=== PATIENT | male | born 1955 | race Two or more races ===

== ENCOUNTER 2020-08-02 06:46 | Outpatient (REF) | payer OTHER, SELFPAY ==
[2020-08-02 07:42] LABS: MANUAL DIFF FLAG NO
[2020-08-02 07:57] LABS: Basophils Percent Auto 0.3 % (0-2); Eosinophils Absolute Auto 0.3 X10*3/uL (0.0-0.4); Eosinophils Percent Auto 3.1 % (0-4); Hematocrit 51.6 % (42-52); Hemoglobin 16.7 g/dl (14.0-18.0); Imm Gran Abs Auto 0.04 X10*3/uL (0.00-0.03); Imm Gran Pct Auto 0.5 % (0.0-0.4); Lymphocytes Percent Auto 22.6 % (20-40); Mean Corpuscular HGB Conc 32.4 g/dl (31.0-36.0); Mean Corpuscular Hemoglobin 28.8 pg (27.0-33.0); Mean Corpuscular Volume 89.1 fL (80-98); Mean Platelet Volume 10.5 fL (9.4-12.4); Monocytes Absolute Auto 0.7 X10*3/uL (0.1-1.2); Monocytes Percent Auto 8.4 % (2-11); Neutrophils Absolute Auto 5.6 X10*3/uL (2.0-8.3); Neutrophils Percent Auto 65.1 % (45-73); Platelet Count 276 X10*3/uL (160-400); Red Blood Count 5.79 X10*6/uL (4.60-5.80); Red Cell Distribution Width 12.3 % (11.0-16.0); White Blood Count 8.6 X10*3/uL (4.8-10.8)
[2020-08-02 08:51] LABS: Alanine Aminotransferase 27 U/L (0-40); Albumin Level 4.4 g/dL (3.5-5.0); Alkaline Phosphatase 75 U/L (39-117); Anion Gap 12 (12-20); Aspartate Amino Transferase 26 U/L (5-37); Bilirubin Total 0.3 mg/dL (0.0-1.0); Blood Urea Nitrogen 21 mg/dL (9-16); Calcium 10.1 mg/dL (8.4-10.2); Carbon Dioxide 31 mmol/L (22-29); Chloride 102 mmol/L (96-108); Cholesterol 168 mg/dL; Estimated Glomerular Filt Rate > 60; Glucose Fasting 94 mg/dL (60-99); HDL Cholesterol 54 mg/dL; LDL Cholesterol Calculated 99 mg/dl; Potassium 4.4 mmol/L (3.3-5.1); Sodium 141 mmol/L (135-145); Total Protein 7.3 g/dL (6.5-8.0); Triglycerides 79 mg/dL
== END 2020-08-02 06:47 | disposition home or self-care (01) ==
LOC: HO.LAB 06:46
PROVIDERS: PCP Internal Medicine; Visit Provider Internal Medicine
DX: Z00.00 Encounter for general adult medical examination without abnormal findings (principal); E11.9 Type 2 diabetes mellitus without complications
CPT/HCPCS: 36415; 80053; 80061; 85025

== ENCOUNTER 2020-09-29 09:08 | Outpatient (REF) | payer OTHER, SELFPAY ==
--- NOTE | ~2020-09-29 | XR_ITS ---
EXAMINATION: XR HIP, LEFT CLINICAL INFORMATION: Hip pain COMPARISON: None TECHNIQUE: AP and frog-lateral projections of the left hip. FINDINGS: There is normal bony mineralization. No fracture, dislocation, destructive process. There is no hip joint narrowing or erosive change or visible chondrocalcinosis. Soft tissue planes are unremarkable. The visualized left SI joint and the pubis are unremarkable. XR/XR hip LT 1V IMPRESSION: Unremarkable left hip.
--- NOTE | ~2020-09-29 | XR_ITS ---
EXAMINATION: XR SHOULDER, LEFT CLINICAL INFORMATION: Shoulder pain COMPARISON: None TECHNIQUE: Left shoulder is imaged in 4 views. FINDINGS: No fracture, dislocation, destructive process. Normal bony mineralization. The glenohumeral joint is normal. The acromioclavicular alignment is normal. There is borderline spurring superior lateral acromium likely at origin deltoid. There are no visible rotator cuff calcifications. XR/XR shoulder LT min 2V IMPRESSION: 1. Minor spurring superior lateral acromium likely at origin deltoid. 2. No visible rotator cuff calcifications.
== END 2020-09-29 09:09 | disposition home or self-care (01) ==
LOC: HO.XRAY 09:08
PROVIDERS: PCP Internal Medicine; Visit Provider Internal Medicine
DX: M25.512 Pain in left shoulder (principal); M25.552 Pain in left hip
CPT/HCPCS: 73030; 73501

== ENCOUNTER → 2021-08-20 15:23 | Outpatient (BNVA) | payer OTHER, SELFPAY | PROVIDERS: PCP Internal Medicine; Referring Provider Internal Medicine; Visit Provider Surgery | DX: K64.9 Unspecified hemorrhoids (principal) | CPT/HCPCS: 46600 ==

== ENCOUNTER 2021-11-20 09:53 | Outpatient (REF) | payer OTHER, SELFPAY ==
[2021-11-20 10:03] LABS: MANUAL DIFF FLAG NO
[2021-11-20 10:50] LABS: Basophils Percent Auto 0.4 % (0-2); Eosinophils Absolute Auto 0.2 X10*3/uL (0.0-0.4); Eosinophils Percent Auto 3.4 % (0-4); Hematocrit 50.1 % (42.0-52.0); Hemoglobin 16.6 g/dl (14.0-18.0); Imm Gran Abs Auto 0.03 X10*3/uL (0.00-0.03); Imm Gran Pct Auto 0.4 % (0.0-0.4); Lymphocytes Absolute Auto 2.4 X10*3/uL (1.2-4.9); Lymphocytes Percent Auto 36.5 % (20-40); Mean Corpuscular HGB Conc 33.1 g/dl (31.0-36.0); Mean Corpuscular Hemoglobin 29.9 pg (27.0-33.0); Mean Corpuscular Volume 90.3 fL (80.0-98.0); Mean Platelet Volume 10.3 fL (9.4-12.4); Monocytes Absolute Auto 0.6 X10*3/uL (0.1-1.2); Monocytes Percent Auto 9.6 % (2-11); Neutrophils Absolute Auto 3.3 x10*3/uL (2.0-8.3); Neutrophils Percent Auto 49.7 % (45-73); Platelet Count 283 X10*3/uL (160-400); Red Blood Count 5.55 X10*6/uL (4.60-5.80); Red Cell Distribution Width 12.6 % (11.0-16.0); White Blood Count 6.7 X10*3/uL (4.8-10.8)
[2021-11-20 11:23] LABS: Alanine Aminotransferase 22 U/L (0-40); Albumin Level 4.1 g/dL (3.5-5.0); Alkaline Phosphatase 63 U/L (39-117); Anion Gap 13 (12-20); Aspartate Amino Transferase 25 U/L (5-37); Bilirubin Total 0.6 mg/dL (0.0-1.0); Blood Urea Nitrogen 23 mg/dL (9-16); Calcium 9.6 mg/dL (8.4-10.2); Carbon Dioxide 30 mmol/L (22-29); Chloride 103 mmol/L (96-108); Cholesterol 152 mg/dL; Estimated Glomerular Filt Rate > 60; Glucose Fasting 108 mg/dL (60-99); HDL Cholesterol 39 mg/dL; LDL Cholesterol Calculated 75 mg/dl; Potassium 4.3 mmol/L (3.3-5.1); Sodium 142 mmol/L (135-145); Total Protein 6.9 g/dL (6.5-8.0); Triglycerides 193 mg/dL
[2021-11-20 11:50] LABS: Thyroid Stimulating Hormone 3.22 uIU/mL (0.32-4.0)
== END 2021-11-20 09:54 | disposition home or self-care (01) ==
LOC: HO.LAB 09:53
PROVIDERS: PCP Internal Medicine; Visit Provider Internal Medicine
DX: Z13.0 Encounter for screening for diseases of the blood and blood-forming organs and certain disorders involving the immune mechanism (principal); E78.5 Hyperlipidemia, unspecified; E03.9 Hypothyroidism, unspecified; I10 Essential (primary) hypertension
CPT/HCPCS: 36415; 80053; 80061; 84443; 85025

== ENCOUNTER 2022-11-11 08:58 | Outpatient (AMB) | payer OTHER, SELFPAY ==
[2022-11-11 09:00] VITALS: BP 144/99; PULSE 75; O2SAT 98; BMI 28.4
--- NOTE | 2022-11-11 09:00 | MHC.PC.OV ---
Vital Signs 11/11/22 09:00 Height 5 ft 6 in Weight 176 lb BMI 28.4 BP 144/99 H Blood Pressure Location Lt brachial Position Sitting Pulse 75 Pulse Source Pulse Oximeter Pulse Oximetry (%) 98 Oxygen Delivery Method Room Air Intake Visit Reasons: Annual Exam General Agent Required: No Residential Plumber: Not Required per policy Accompanied by: Self / Same As Patient Allergies No Known Allergies Allergy (Verified 11/11/22 09:01) Medication List - Last Reconciled 11/11/22 by Nadir Scherer MD sildenafil (Viagra) 50 mg PO DAILY PRN valsartan 160 mg PO DAILY Tobacco use date assessed: 07/26/21 Fall risk assessment: No Falls in past year Last assessed Fall Risk: 11/11/22 Dental Screening Dental Screen Date: 11/11/22 Did you have a dental visit in the last 12 months?: Yes Did you have a dental problem in the last 6 months where you did not have access to dental care?: No Was dental information given to patient?: Patient has dentist HPI Annual Exam HPI Details HTN and ED; BP has been up a bit [facility] Medical History Hypertension Surgical History No pertinent past surgical history Family History Mother No problems noted. Father No problems noted. Social History Housing: House Alcohol intake: current Alcohol intake frequency: holidays/special occasions only Patient Tobacco Use Status: Never used Tobacco e-Cigarette/Vaping Use: Never Used Second Hand Smoke Exposure: No service: No Current occupational status: unemployed Cognitive needs: No Hearing needs: No Vision needs: Yes (glasses) Questionnaire PHQ-9 Over the last 2 weeks, how often have you been bothered by any of the following problems? 1. Little interest or pleasure in doing things: not at all 2. Feeling down, depressed, or hopeless: not at all 3. Trouble falling or staying asleep, or sleeping too much: not at all 4. Feeling tired or having little energy: not at all 5. Poor appetite or overeating: not at all 6. Feeling bad about yourself - or that you are a failure or have let yourself or your family down: not at all 7. Trouble concentrating on things, such as reading the newspaper or watching television: not at all 8. Moving or speaking so slowly that other people could have noticed. Or the opposite - being so fidgety or restless that you have been moving around a lot more than usual: not at all 9. Thoughts that you would be better off or of hurting yourself in some way: not at all Total score: 0 Depression Screening Interpretation: Negative 66163 - PHQ-9 Billing: Yes Source: Developed by Drs. Bud Lee, Alba Jc, Yeyo Gonzalez and colleagues, with an educational luis miguel from [employer]. Thrive Questionnaire Date Thrive assessed: 11/11/22 I am a: Patient What is your living situation today?: I have a steady place to live Within the past 12 months, did the food you bought not last and you didn't have the money to get more?: Never true Within the past 12 months, did you worry whether your food would run out before you got money to buy more?: Never true Do you have trouble paying for medicines?: No Do you have trouble getting transportation to medical appointments?: No Do you have trouble paying your heating and electricity bill?: No Do you have trouble taking care of your child, family member or friend?: No Do you have trouble with day-to-day activities such as bathing, preparing meals, shopping, managing finances, etc.?: No Are you currently unemployed and looking for a job?: No Are you interested in more education?: No Please select the resources that you would like help with: None AUDIT C Alcohol Use Questionnaire (AUDIT-C) 1. How often do you have a drink containing alcohol?: Monthly or less 2. How many drinks containing alcohol do you have on a typical day when you are drinking?: 1 or 2 Total Score: 1 Score Reviewed/Action Taken: Yes URI-7 AMB Questionnaire URI-7 Date URI - 7 assessed: 07/26/21 Source: Developed by Drs. Bud Lee, Alba Jc, Yeyo Gonzalez and colleagues, with an educational luis miguel from [employer]. Review of Systems Const Denies chills, Denies fatigue, Denies headache(s) and Denies weight loss Eyes Denies change in vision, Denies diplopia and Denies eye pain ENT Denies vertigo, Denies dizziness, Denies headache(s) and Denies nasal discharge Card Denies chest pain, Denies rapid heart rate and Denies dyspnea on exertion Resp Denies chest congestion, Denies cough, Denies pain with cough and Denies dyspnea on exertion GI Denies abdominal pain, Denies hematochezia and Denies change in bowel habits Musc Denies myalgias, Denies arthralgias and Denies joint swelling Skin/Breast Denies lesions and Denies unusual bruising Neuro Denies vertigo, Denies dizziness, Denies headache(s) and Denies focal weakness Endo Denies fatigue Physical exam (Primary Care) Vital Signs: Last Vital Signs Pulse 75 11/11/22 09:00 BP 144/99 H 11/11/22 09:00 Pulse Ox 98 11/11/22 09:00 Oxygen Delivery Method Room Air 11/11/22 09:00 BMI result Body Mass Index 28.4 Tobacco/Smoking Status: Tobacco use Status Tobacco use date assessed 07/26/21 11/11/22 09:05 Patient Tobacco Use Status Never used Tobacco 11/11/22 09:05 e-Cigarette/Vaping Use Never Used 11/11/22 09:05 PHQ-9: PHQ-9 Score PHQ-9: Total score 0 11/11/22 09:05 Depression Screening Interpretation: Negative Thrive Assessment: Date of Thrive Assessment Date Thrive assessed 11/11/22 11/11/22 09:05 Const General: cooperative, healthy appearing and no acute distress Orientation/consciousness: oriented to person, oriented to place and oriented to time [facility] Head: Yes normal to inspection, Yes normocephalic and Yes atraumatic Mouth: Normal oral and palatal mucosa present and tongue normal Throat: Yes posterior oropharynx normal and Yes uvula midline Eyes General: appearance normal, both eyes and all related structures Neck Neck: Yes normal visual inspection, Yes full ROM and Yes no lymphadenopathy Thyroid: Thyroid normal Carotids: normal carotid upstroke Chest Chest palpation & inspection: normal inspection of the chest Resp Effort & Inspection: normal respiratory effort and able to speak in complete sentences Auscultation: clear to auscultation bilaterally Cardio Jugular venous distension: no JVD Palpation: normal PMI Rate: regular rate Rhythm: regular rhythm Heart sounds: S1 normal heart sound present and S2 normal heart sound present GI Inspection: Yes normal to inspection Palpation (GI): Soft to palpation and No hepatosplenomegaly present Auscultation: normal bowel sounds General: Yes no CVA tenderness Back/Spine/Pelvis Back: no CVA tenderness Skin General skin exam: no rashes or lesions noted Neuro General: oriented to person, oriented to place and oriented to time Extrem General: Yes normal to inspection and Yes full ROM Assessment and Plan Assessment & Plan (1) Physical exam: Code(s): Z00.00 - Encounter for general adult medical examination without abnormal findings Plan: do labs (2) Hypertension: Code(s): I10 - Essential (primary) hypertension Plan: f/u 2 weeks (3) Erectile dysfunction: Code(s): N52.9 - Male erectile dysfunction, unspecified Plan: stable; same rx Orders: Orders Thyroid Stimulating Hormone Today E03.9 - Hypothyroidism, unspecified Prostate Specific Antigen Scr Today Z00.00 - Encounter for general adult medical examination without abnormal findings Lipid Panel Today E78.5 - Hyperlipidemia, unspecified Complete Blood Count Auto Diff Today D64.9 - Anemia, unspecified Comprehensive [place]. Panel Fast Today N28.9 - Disorder of kidney and ureter, unspecified Coding Level of Care Code Est Pt Prev Care >65y(37756) Diagnoses Physical exam Z00.00 Hypertension I10 Erectile dysfunction N52.9
== END 2022-11-11 09:56 | disposition home or self-care (01) ==
PROVIDERS: PCP Internal Medicine; Visit Provider Internal Medicine
DX: Z00.00 Encounter for general adult medical examination without abnormal findings (principal); I10 Essential (primary) hypertension; N52.9 Male erectile dysfunction, unspecified
CPT/HCPCS: 99397

== ENCOUNTER 2022-11-12 15:37 | Outpatient (REF) | payer OTHER, SELFPAY ==
[2022-11-12 15:53] LABS: MANUAL DIFF FLAG NO
[2022-11-12 16:32] LABS: Basophils Absolute Auto 0.1 X10*3/uL (0.0-0.2); Basophils Percent Auto 0.9 % (0-2); Eosinophils Absolute Auto 0.4 X10*3/uL (0.0-0.4); Eosinophils Percent Auto 5.6 % (0-4); Hematocrit 52.3 % (42.0-52.0); Hemoglobin 16.9 g/dl (14.0-18.0); Imm Gran Abs Auto 0.02 X10*3/uL (0.00-0.03); Imm Gran Pct Auto 0.3 % (0.0-0.4); Lymphocytes Absolute Auto 2.3 X10*3/uL (1.2-4.9); Mean Corpuscular HGB Conc 32.3 g/dl (31.0-36.0); Mean Corpuscular Hemoglobin 29.4 pg (27.0-33.0); Mean Platelet Volume 10.7 fL (9.4-12.4); Monocytes Absolute Auto 0.8 X10*3/uL (0.1-1.2); Monocytes Percent Auto 11.7 % (2-11); Neutrophils Absolute Auto 3.1 x10*3/uL (2.0-8.3); Neutrophils Percent Auto 46.5 % (45-73); Platelet Count 254 X10*3/uL (160-400); Red Blood Count 5.75 X10*6/uL (4.60-5.80); Red Cell Distribution Width 12.8 % (11.0-16.0); White Blood Count 6.7 X10*3/uL (4.8-10.8)
[2022-11-12 17:16] LABS: Alanine Aminotransferase 38 U/L (0-40); Alkaline Phosphatase 55 U/L (39-117); Anion Gap 8 (12-20); Aspartate Amino Transferase 30 U/L (5-37); Bilirubin Total 0.5 mg/dL (0.0-1.0); Blood Urea Nitrogen 15 mg/dL (9-16); Calcium 9.2 mg/dL (8.4-10.2); Carbon Dioxide 30 mmol/L (22-29); Chloride 107 mmol/L (96-108); Cholesterol 164 mg/dL (<200); Estimated Glomerular Filt Rate > 60; Glucose Fasting 96 mg/dL (60-99); HDL Cholesterol 35 mg/dL (>40); LDL Cholesterol Calculated 104 mg/dL (<100); Potassium 3.7 mmol/L (3.3-5.1); Sodium 141 mmol/L (135-145); Total Protein 6.8 g/dL (6.5-8.0); Triglycerides 126 mg/dL (<150)
[2022-11-12 17:24] LABS: Prostate Specific Antigen Scr 1.12 ng/mL (<0.05-4.0); Thyroid Stimulating Hormone 3.38 uIU/mL (0.32-4.0)
== END 2022-11-12 15:38 | disposition home or self-care (01) ==
LOC: HO.LAB 15:37
PROVIDERS: PCP Internal Medicine; Visit Provider Internal Medicine
DX: Z00.00 Encounter for general adult medical examination without abnormal findings (principal); Z12.5 Encounter for screening for malignant neoplasm of prostate; E03.9 Hypothyroidism, unspecified; E78.5 Hyperlipidemia, unspecified; N28.9 Disorder of kidney and ureter, unspecified; D64.9 Anemia, unspecified
CPT/HCPCS: 36415; 80053; 80061; 84153; 84443; 85025

== ENCOUNTER 2022-11-21 11:04 | Outpatient (AMB) | payer OTHER, SELFPAY ==
--- NOTE | 2022-11-21 11:11 | A.OFFPC_ITS ---
Vital Signs 11/21/22 11:12 Height 5 ft 6 in Weight 173 lb BMI 27.9 BP 142/80 H Blood Pressure Location Lt brachial Position Sitting Pulse 82 Pulse Source Pulse Oximeter Pulse Oximetry (%) 98 Oxygen Delivery Method Room Air Intake Visit Reasons: 1 week Follow Up On Labs Epic Prelude Analyst: Not Required per policy Accompanied by: self Allergies No Known Allergies Allergy (Verified 11/21/22 11:12) Medication List - Last Reconciled 11/21/22 by Nadir Scherer MD sildenafil (Viagra) 50 mg PO DAILY PRN valsartan 160 mg PO DAILY Tobacco use date assessed: 11/21/22 Fall risk assessment: No Falls in past year Last assessed Fall Risk: 11/21/22 Dental Screening Dental Screen Date: 11/21/22 Did you have a dental visit in the last 12 months?: Yes Did you have a dental problem in the last 6 months where you did not have access to dental care?: No Was dental information given to patient?: Patient has dentist HPI 1 week Follow Up On Labs HPI Details HTN on Rx; doing well PFSH Medical History Hypertension Surgical History No pertinent past surgical history Family History Mother No problems noted. Father No problems noted. Social History Housing: House Alcohol intake: current Alcohol intake frequency: holidays/special occasions only Patient Tobacco Use Status: Never used Tobacco e-Cigarette/Vaping Use: Never Used Second Hand Smoke Exposure: No service: No Current occupational status: unemployed Cognitive needs: No Hearing needs: No Vision needs: Yes (glasses) Questionnaire PHQ-9 Over the last 2 weeks, how often have you been bothered by any of the following problems? 1. Little interest or pleasure in doing things: not at all 2. Feeling down, depressed, or hopeless: not at all 3. Trouble falling or staying asleep, or sleeping too much: not at all 4. Feeling tired or having little energy: not at all 5. Poor appetite or overeating: not at all 6. Feeling bad about yourself - or that you are a failure or have let yourself or your family down: not at all 7. Trouble concentrating on things, such as reading the newspaper or watching t elevision: not at all 8. Moving or speaking so slowly that other people could have noticed. Or the opposite - being so fidgety or restless that you have been moving around a lot more than usual: not at all 9. Thoughts that you would be better off or of hurting yourself in some way: not at all Total score: 0 Depression Screening Interpretation: Negative [id number] - PHQ-9 Billing: Yes Source: Developed by Drs. Bud Lee, Alba Jc, Yeyo Gonzalez and colleagues, with an educational luis miguel from [employer]. Thrive Questionnaire Date Thrive assessed: 11/11/22 AUDIT C Alcohol Use Questionnaire (AUDIT-C) 1. How often do you have a drink containing alcohol?: Monthly or less 2. How many drinks containing alcohol do you have on a typical day when you are drinking?: 1 or 2 Total Score: 1 Score Reviewed/Action Taken: Yes URI-7 AMB Questionnaire URI-7 Date URI - 7 assessed: 11/21/22 Feeling nervous, anxious, or on edge: 0 = Not at all Not being able to stop or control worryin = Not at all Worrying too much about different things: 0 = Not at all Trouble relaxin = Not at all Being so restless that it is hard to sit still: 0 = Not at all Becoming easily annoyed or irritable: 0 = Not at all Feeling afraid as if something awful might happen: 0 = Not at all Total URI-7 score (0-4 normal; 5-9 mild; 10-14 moderate; 15-21 severe): 0 Source: Developed by Drs. Bud Lee, Alba Jc, Yeyo Gonzalez and colleagues, with an educational luis miguel from [employer]. Review of Systems Const Denies chills, Denies headache(s) and Denies weight loss ENT Denies headache(s) Card Denies chest pain, Denies syncope, Denies irregular heart rhythm and Denies dyspnea Resp Denies chest congestion, Denies cough and Denies dyspnea GI Denies abdominal pain, Denies change in stool character, Denies nausea and Denies vomiting Musc Denies deformity and Denies joint swelling Neuro Denies syncope and Denies headache(s) Physical exam (Primary Care) Vital Signs: Last Vital Signs Pulse 82 11/21/22 11:12 BP 142/80 H 11/21/22 11:12 Pulse Ox 98 11/21/22 11:12 Oxygen Delivery Method Room Air 11/21/22 11:12 BMI result Body Mass Index 27.9 Tobacco/Smoking Status: Tobacco use Status Tobacco use date assessed 11/21/22 11/21/22 11:16 Patient Tobacco Use Status Never used Tobacco 11/21/22 11:16 e-Cigarette/Vaping Use Never Used 11/21/22 11:16 PHQ-9: PHQ-9 Score PHQ-9: Total score 0 11/21/22 11:16 Depression Screening Interpretation: Negative Thrive Assessment: Date of Thrive Assessment Date Thrive assessed 11/11/22 11/21/22 11:16 Const General: cooperative, comfortable, no acute distress and alert Neck Neck: Yes no lymphadenopathy Thyroid: Thyroid normal Resp Effort & Inspection: normal respiratory effort Auscultation: clear to auscultation bilaterally Percussion: percussion normal Cardio Jugular venous distension: no JVD Palpation: normal PMI Rate: regular rate Rhythm: regular rhythm Heart sounds: S1 normal heart sound present and S2 normal heart sound present GI Inspection: Yes normal to inspection Palpation (GI): No hepatosplenomegaly present Skin General skin exam: no rashes or lesions noted Extrem General: Yes no clubbing, cyanosis or edema Assessment and Plan Assessment & Plan (1) Hypertension: Code(s): I10 - Essential (primary) hypertension Plan: stable; same rx Medications: New blood pressure monitor As directed 1 ea 0RF Coding Level of Care Code Est Pt Level 3 (96656) Diagnoses Hypertension I10
[2022-11-21 11:12] VITALS: BP 142/80; PULSE 82; O2SAT 98; BMI 27.9
== END 2022-11-21 12:20 | disposition home or self-care (01) ==
PROVIDERS: PCP Internal Medicine; Visit Provider Internal Medicine
DX: I10 Essential (primary) hypertension (principal)
CPT/HCPCS: 99213

== ENCOUNTER 2023-07-15 16:57 | Outpatient (REF) | payer OTHER, SELFPAY ==
[2023-07-15 17:22] LABS: Hematocrit 50.9 % (42.0-52.0); Hemoglobin 16.6 g/dl (14.0-18.0); Mean Corpuscular HGB Conc 32.6 g/dl (31.0-36.0); Mean Corpuscular Hemoglobin 28.7 pg (27.0-33.0); Mean Corpuscular Volume 87.9 fL (80.0-98.0); Mean Platelet Volume 9.9 fL (9.4-12.4); Platelet Count 311 X10*3/uL (160-400); Red Blood Count 5.79 X10*6/uL (4.60-5.80)
[2023-07-15 18:47] LABS: Creatinine Urine 231.49 mg/dL
[2023-07-15 19:10] LABS: Prostate Specific Antigen Scr 1.08 ng/mL (<0.05-4.0)
[2023-07-16 02:06] LABS: CT PCR NOT DETECTED (Not Detect.); NG PCR NOT DETECTED (Not Detect.)
[2023-07-16 08:08] LABS: Syphilis Screen Reactive (Nonreactive)
[2023-07-16 08:14] LABS: HIV AB/AG Nonreactive (Nonreactive); HIV Num 1 0.04 S/CO (0.00-0.99)
[2023-07-21 09:15] LABS: RPR Quantitative Reactive 1:1 (Nonreactive); T.Pallidum Particle Agg Test Reactive (Nonreactive)
== END 2023-07-15 16:58 | disposition home or self-care (01) ==
LOC: HO.LAB 16:57
PROVIDERS: PCP Internal Medicine; Visit Provider Physician Assistant
DX: I10 Essential (primary) hypertension (principal); Z12.5 Encounter for screening for malignant neoplasm of prostate; Z11.3 Encounter for screening for infections with a predominantly sexual mode of transmission; Z20.2 Contact with and (suspected) exposure to infections with a predominantly sexual mode of transmission
CPT/HCPCS: 0353U; 82043; 82570; 84153; 85027; 86592; 86780; 87389

== ENCOUNTER 2023-07-24 12:59 | Outpatient (AMB) | payer OTHER, SELFPAY ==
[2023-07-24 13:01] VITALS: BP 148/82; PULSE 86; O2SAT 98; BMI 27.6
--- NOTE | 2023-07-24 13:01 | A.OFFPC_ITS ---
Vital Signs 07/24/23 13:01 Height 5 ft 6 in Weight 171 lb BMI 27.6 BP 148/82 H Blood Pressure Location Lt brachial Position Sitting Pulse 86 Pulse Source Pulse Oximeter Pulse Oximetry (%) 98 Oxygen Delivery Method Room Air Intake Visit Reasons: follow up on lab results [employer] Observer Helper Required: No Responder: Not Required per policy Accompanied by: Self / Same As Patient Allergies No Known Allergies Allergy (Verified 07/24/23 13:02) Medication List - Last Reconciled 07/25/23 by Nadir Scherer MD blood pressure monitor As directed doxycycline hyclate 100 mg PO BID penicillin G benzathine 2.4 mmu IM ONCE 1 dose sildenafil (Viagra) 50 mg PO DAILY PRN valsartan 160 mg PO DAILY Tobacco use date assessed: 07/24/23 Fall risk assessment: No Falls in past year Last assessed Fall Risk: 07/24/23 Dental Screening Dental Screen Date: 07/24/23 Did you have a dental visit in the last 12 months?: Yes Did you have a dental problem in the last 6 months where you did not have access to dental care?: No Was dental information given to patient?: Patient has dentist HPI follow up on lab results HPI Details told in the [place] he has syph. treated with Pen IM; no symptoms; treated a week ago; ON LICENSE OF [facility] Medical History Hypertension Surgical History No pertinent past surgical history Family History Mother No problems noted. Father No problems noted. Social History Housing: House Alcohol intake: current Alcohol intake frequency: holidays/special occasions only Patient Tobacco Use Status: Never used Tobacco e-Cigarette/Vaping Use: Never Used Second Hand Smoke Exposure: No service: No Current occupational status: unemployed Cognitive needs: No Hearing needs: No Vision needs: Yes (glasses) Questionnaire PHQ-9 Over the last 2 weeks, how often have you been bothered by any of the following problems? 1. Little interest or pleasure in doing things: not at all 2. Feeling down, depressed, or hopeless: not at all 3. Trouble falling or staying asleep, or sleeping too much: not at all 4. Feeling tired or having little energy: not at all 5. Poor appetite or overeating: not at all 6. Feeling bad about yourself - or that you are a failure or have let yourself o r your family down: not at all 7. Trouble concentrating on things, such as reading the newspaper or watching television: not at all 8. Moving or speaking so slowly that other people could have noticed. Or the opposite - being so fidgety or restless that you have been moving around a lot more than usual: not at all 9. Thoughts that you would be better off or of hurting yourself in some way: not at all Total score: 0 Depression Screening Interpretation: Negative Depression Screening Done: Yes 11355 - PHQ-9 Billing: Yes Source: Developed by Drs. Bud Lee, Alba Jc, Yeyo vaughan nd colleagues, with an educational luis miguel from [employer]. Thrive Questionnaire Date Thrive assessed: 07/24/23 I am a: Patient What is your living situation today?: I have a steady place to live Within the past 12 months, did the food you bought not last and you didn't have the money to get more?: Never true Within the past 12 months, did you worry whether your food would run out before you got money to buy more?: Never true Do you have trouble paying for medicines?: No Do you have trouble getting transportation to medical appointments?: No Do you have trouble paying your heating and electricity bill?: No Do you have trouble taking care of your child, family member or friend?: No Do you have trouble with day-to-day activities such as bathing, preparing meals, shopping, managing finances, etc.?: No Are you currently unemployed and looking for a job?: No Are you interested in more education?: No Please select the resources that you would like help with: None THRIVE Score: 0 AUDIT C Alcohol Use Questionnaire (AUDIT-C) 1. How often do you have a drink containing alcohol?: Monthly or less 2. How many drinks containing alcohol do you have on a typical day when you are drinking?: 1 or 2 Total Score: 1 Score Reviewed/Action Taken: Yes URI-7 AMB Questionnaire URI-7 Date URI - 7 assessed: 07/24/23 Feeling nervous, anxious, or on edge: 0 = Not at all Not being able to stop or control worryin = Not at all Worrying too much about different things: 0 = Not at all Trouble relaxin = Not at all Being so restless that it is hard to sit still: 0 = Not at all Becoming easily annoyed or irritable: 0 = Not at all Feeling afraid as if something awful might happen: 0 = Not at all Total URI-7 score (0-4 normal; 5-9 mild; 10-14 moderate; 15-21 severe): 0 Source: Developed by Drs. Bud Lee, Alba Jc, Yeyo Gonzalez and colleagues, with an educational luis miguel from [employer]. Review of Systems Const Denies chills, Denies headache(s) and Denies weight loss ENT Denies headache(s) Card Denies chest pain, Denies syncope, Denies irregular heart rhythm and Denies dyspnea Resp Denies chest congestion, Denies cough and Denies dyspnea GI Denies abdominal pain, Denies change in stool character, Denies nausea and Denies vomiting Musc Denies deformity and Denies joint swelling Neuro Denies syncope and Denies headache(s) Physical exam (Primary Care) Vital Signs: Last Vital Signs Pulse 86 07/24/23 13:01 BP 148/82 H 07/24/23 13:01 Pulse Ox 98 07/24/23 13:01 Oxygen Delivery Method Room Air 07/24/23 13:01 BMI result Body Mass Index 27.6 Tobacco/Smoking Status: Tobacco use Status Tobacco use date assessed 07/24/23 07/24/23 13:03 Patient Tobacco Use Status Never used Tobacco 07/24/23 13:03 e-Cigarette/Vaping Use Never Used 07/24/23 13:03 PHQ-9: PHQ-9 Score PHQ-9: Total score 0 07/24/23 13:03 Depression Screening Interpretation: Negative Thrive Assessment: Date of Thrive Assessment Date Thrive assessed 07/24/23 07/24/23 13:03 Const General: cooperative, comfortable, no acute distress and alert Neck Neck: Yes no lymphadenopathy Thyroid: Thyroid normal Resp Effort & Inspection: normal respiratory effort Auscultation: clear to auscultation bilaterally Percussion: percussion normal Cardio Jugular venous distension: no JVD Palpation: normal PMI Rate: regular rate Rhythm: regular rhythm Heart sounds: S1 normal heart sound present and S2 normal heart sound present GI Inspection: Yes normal to inspection Palpation (GI): No hepatosplenomegaly present Skin General skin exam: no rashes or lesions noted Extrem General: Yes no clubbing, cyanosis or edema Assessment and Plan Assessment & Plan (1) Syphilis: Code(s): A53.9 - Syphilis, unspecified Plan: will rx again with Pen and doxycycline Medications: New doxycycline hyclate 100 mg PO BID 20 tabs 0RF Coding Level of Care Code Est Pt Level 3 (59612) Diagnoses Syphilis A53.9
== END 2023-07-24 15:07 | disposition home or self-care (01) ==
PROVIDERS: PCP Internal Medicine; Visit Provider Internal Medicine
DX: A53.9 Syphilis, unspecified (principal)
CPT/HCPCS: 99213

== ENCOUNTER 2024-01-13 12:25 | Outpatient (AMB) | payer OTHER, SELFPAY ==
--- NOTE | 2024-01-13 12:27 | A.OFFPC_ITS ---
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 Last colonoscopy was over 10 years ago. Receive treatment for syphilis few months ago. Complains of low back pain that does not radiate to the legs. No fever, bowel or bladder incontinence. Declines physical therapy for now but is willing to do x-ray. Also has a right clavicular protuberance most likely due to a cyst and would like some imaging. Also has erectile dysfunction and sildenafil works for him. He is aware sildenafil can cause a fatal drug interaction with nitrates and if he has chest pain he has to go to EMT when was the last time that had sildenafil. [facility] Medical History (Updated 01/13/24 @ 12:54 by Cheli Joshua MD) Hypertension Surgical History No pertinent past surgical history Family History Mother No problems noted. Father No problems noted. Social History (Updated 01/13/24 @ 12:39 by Cheli Joshua MD) Housing: House Alcohol intake: current Alcohol intake frequency: a few times a month Alcohol type: hard liquor Patient Tobacco Use Status: Never used Tobacco e-Cigarette/Vaping Use: Never Used Second Hand Smoke Exposure: No service: No Current occupational status: unemployed Cognitive needs: No Hearing needs: No Vision needs: Yes (glasses) Questionnaire PHQ-9 Over the last 2 weeks, how often have you been bothered by any of the following problems? 1. Little interest or pleasure in doing things: not at all 2. Feeling down, depressed, or hopeless: not at all 3. Trouble falling or staying asleep, or sleeping too much: not at all 4. Feeling tired or having little energy: not at all 5. Poor appetite or overeating: not at all 6. Feeling bad about yourself - or that you are a failure or have let yourself or your family down: not at all 7. Trouble concentrating on things, such as reading the newspaper or watching television: not at all 8. Moving or speaking so slowly that other people could have noticed. Or the opposite - being so fidgety or restless that you have been moving around a lot more than usual: not at all 9. Thoughts that you would be better off or of hurting yourself in some way: not at all Total score: 0 Depression Screening Interpretation: Negative Depression Screening Done: Yes 09637 - PHQ-9 Billing: Yes Source: Developed by Drs. Bud Lee, Alba Jc, Yeyo Gonzalez and colleagues, with an educational luis miguel from [employer]. Thrive Questionnaire Date Thrive assessed: 07/24/23 I am a: Patient What is your living situation today?: I have a steady place to live Within the past 12 months, did the food you bought not last and you didn't have the money to get more?: I choose not to answer this question Within the past 12 months, did you worry whether your food would run out before you got money to buy more?: Never true Do you have trouble paying for medicines?: No Do you have trouble getting transportation to medical appointments?: No Do you have trouble paying your heating and electricity bill?: No Do you have trouble taking care of your child, family member or friend?: No Do you have trouble with day-to-day activities such as bathing, preparing meals, shopping, managing finances, etc.?: No Are you currently unemployed and looking for a job?: No Are you interested in more education?: No Please select the resources that you would like help with: None Currently or been in a relationship where the following occur: I choose not to answer THRIVE Score: 0 AUDIT C Alcohol Use Questionnaire (AUDIT-C) 1. How often do you have a drink containing alcohol?: 2-4 times a month 2. How many drinks containing alcohol do you have on a typical day when you are drinking?: 1 or 2 3. How often do you have six or more drinks on one occasion?: Less than monthly Total Score: 3 URI-7 AMB Questionnaire URI-7 Date URI - 7 assessed: 07/24/23 Feeling nervous, anxious, or on edge: 0 = Not at all Not being able to stop or control worryin = Not at all Worrying too much about different things: 0 = Not at all Trouble relaxin = Not at all Being so restless that it is hard to sit still: 0 = Not at all Becoming easily annoyed or irritable: 0 = Not at all Feeling afraid as if something awful might happen: 0 = Not at all Total URI-7 score (0-4 normal; 5-9 mild; 10-14 moderate; 15-21 severe): 0 Source: Developed by Drs. Bud Lee, Alba Jc, Yeyo Gonzalez and colleagues, with an educational luis miguel from [employer]. URI-7 Assessment Billing URI-7 Assessment Tool: URI-7 Assessment 30588 Review of Systems Const All systems reviewed & are unremarkable except as noted in HPI and below Card Denies chest pain at rest, Denies chest pain with activity, Denies edema, Denies irregular heart rhythm, Denies claudication, Denies dyspnea, Denies dyspnea on exertion, Denies orthopnea, Denies paroxysmal nocturnal dyspnea and Denies slow heart rate Resp Denies cough, Denies dyspnea and Denies dyspnea on exertion GI Denies abdominal pain, Denies change in bowel habits, Denies excessive flatus, Denies nausea and Denies vomiting Denies urinary hesitancy, Denies urinary incontinence and Denies urinary urgency Musc Reports back pain, Denies atrophy, Denies deformity and Denies limited range of motion Skin/Breast Denies bleeding lesions, Denies changing lesions and Denies rash Physical exam (Primary Care) Vital Signs: Last Vital Signs BP 152/110 H 01/13/24 12:28 BMI result Body Mass Index 27.3 Tobacco/Smoking Status: Tobacco use Status Tobacco use date assessed 07/24/23 07/24/23 13:03 Patient Tobacco Use Status Never used Tobacco 07/24/23 13:03 e-Cigarette/Vaping Use Never Used 07/24/23 13:03 Depression Screening Interpretation: Negative Thrive Assessment: Date of Thrive Assessment Date Thrive assessed 07/24/23 07/24/23 13:03 Currently or been in a relationship where the following occur: I choose not to answer HENMT Head: Yes normal to inspection, Yes normocephalic and Yes atraumatic Ears: external ears normal Eyes General: appearance normal, both eyes and all related structures Eyelids: Yes eyelids normal Conjunctivae: conjunctivae normal Neck Neck: Yes normal visual inspection and Yes supple Resp Effort & Inspection: normal respiratory effort Auscultation: clear to auscultation bilaterally Cardio Jugular venous distension: no JVD Rate: regular rate Rhythm: regular rhythm Heart sounds: S1 normal heart sound present and S2 normal heart sound present GI Inspection: Yes normal to inspection Palpation (GI): Soft to palpation and nontender Auscultation: normal bowel sounds Back/Spine/Pelvis Thoracic/Lumbar Spine: straight leg raise negative bilaterally Skin General skin exam: no rashes or lesions noted Neuro General: no focal motor deficits Extrem Other: Right clavicular protuberance. General: Yes full ROM Psych Appearance: grossly normal Office Procedures Flu Questionnaire Does the patient have a severe egg allergy?: No Immunizations Fluarix Triv [id number] (PF) 45 mcg (15 mcg x 3)/0.5 mL IM syringe Performing Provider: Cheli Joshua MD Per[facility] [place] [facility] Documented (not given) by: RAVIN Ochoa on 01/13/24 12:35 Reason Not Given: Received Previously Coding Level of Care Code Est Pt Level 3 (65009) Est Pt Prev Care >65y(06677) Diagnoses Physical exam Z00.00 Lumbar pain M54.50 Cyst of right clavicle M85.611 Erectile dysfunction, unspecified erectile dysfunction type N52.9 Erectile dysfunction type: unspecified Additional Codes PHQ-9 - 32942 - PHQ-9 Billing: Yes ([id number]) URI-7 Assessment Billing - URI-7 Assessment Tool: URI-7 Assessment 33360 ([id number]) Time Spent (min) 33 Assessment & Plan Assessment & Plan (1) Physical exam: Code(s): Z00.00 - Encounter for general adult medical examination without abnormal findings Category: Medical Plan: Repeat in a year. (2) Lumbar pain: Code(s): M54.50 - Low back pain, unspecified Category: Medical Plan: X-ray ordered. (3) Cyst of right clavicle: Code(s): M85.611 - Other cyst of bone, right shoulder Category: Medical Plan: Ultrasound ordered. (4) Erectile dysfunction: Code(s): N52.9 - Male erectile dysfunction, unspecified Category: Medical Qualifiers: Erectile dysfunction type: unspecified Qualified Code(s): N52.9 - Male erectile dysfunction, unspecified Plan: Continue sildenafil as needed. Orders: Orders XR lumbar spine 2-3V Today M54.50 - Low back pain, unspecified US extremity nonvascular Today M85.611 - Other cyst of bone, right shoulder Lipid Panel Today E78.5 - Hyperlipidemia, unspecified, I10 - Essential (primary) hypertension Influenza [id number] Immunization Today Z23 - Encounter for immunization Comprehensive [place]. Panel Fast Today I10 - Essential (primary) hypertension Referrals Open Access Screening Colonoscopy Referral Z12.12 - Encounter for screening for malignant neoplasm of rectum Medications: New sildenafil administer 30 minutes to 4 hours before activity 50 mg PO DAILY 30 days PRN 6 tabs 11RF sexual activity
[2024-01-13 12:28] VITALS: BP 152/110; BMI 27.3
== END 2024-01-13 12:56 | disposition home or self-care (01) ==
PROVIDERS: PCP Internal Medicine; Visit Provider Internal Medicine
DX: Z00.00 Encounter for general adult medical examination without abnormal findings (principal); M54.50 Low back pain, unspecified; M85.611 Other cyst of bone, right shoulder; N52.9 Male erectile dysfunction, unspecified

== ENCOUNTER 2024-01-13 12:25 | Outpatient (REF) | payer OTHER, SELFPAY ==
--- NOTE | ~2024-01-13 | XR_ITS ---
EXAMINATION: XR LUMBOSACRAL SPINE CLINICAL INFORMATION: M54.50 - Low back pain, unspecified COMPARISON: None available. TECHNIQUE: Three views of the lumbosacral spine. FINDINGS: No acute fracture, compression deformity, or suspicious bone lesion. Healed fracture of L3, probable burst fracture with 2 mm of retropulsion of the posterior endplate. This is a chronic appearance. There is a minimal levoconvex scoliosis, apex at L3. There is a normal to mildly straightened lordosis. There is a 3 mm degenerative appearing anterolisthesis of L5 on S1 with severe disc space degeneration and facet degeneration. Lesser degree of facet degeneration at L4-5. Moderate disc degeneration L2-3, L3-4, and L4-5. Mild sclerosis and irregularity of both SI joints, likely degenerative. No hip joint abnormality seen. Soft tissues appear normal. XR/XR lumbar spine 2-3V IMPRESSION: 1. Old healed burst fracture of L3. No acute findings lumbar spine. 2. Moderate lumbar spondylosis, most significant at L4-5 and L5-S1. Electronically signed by: Will Ramos MD 02/09/2024 11:44 AM [facility]
== END 2024-01-13 12:26 | disposition home or self-care (01) ==
LOC: HO.XRAY 12:25
PROVIDERS: PCP Internal Medicine; Visit Provider Internal Medicine
DX: Z00.01 Encounter for general adult medical examination with abnormal findings (principal); M54.50 Low back pain, unspecified; M85.611 Other cyst of bone, right shoulder; N52.9 Male erectile dysfunction, unspecified; Z79.899 Other long term (current) drug therapy
CPT/HCPCS: 72100; 96127

== ENCOUNTER → 2024-01-13 13:16 | Outpatient (BNV) | payer OTHER, SELFPAY | PROVIDERS: PCP Internal Medicine; Visit Provider Radiology Diagnostic Radiology | DX: M54.50 Low back pain, unspecified (principal) | CPT/HCPCS: 72100 ==

== ENCOUNTER 2024-01-19 06:23 | Outpatient (REF) | payer OTHER, SELFPAY ==
[2024-01-19 08:10] LABS: Alanine Aminotransferase 42 U/L (0-40); Albumin Level 4.4 g/dL (3.5-5.0); Alkaline Phosphatase 65 U/L (39-117); Anion Gap 11 (12-20); Aspartate Amino Transferase 35 U/L (5-37); Bilirubin Total 0.8 mg/dL (0.0-1.0); Blood Urea Nitrogen 20 mg/dL (9-16); Calcium 9.6 mg/dL (8.4-10.2); Carbon Dioxide 31 mmol/L (22-29); Chloride 104 mmol/L (96-108); Cholesterol 190 mg/dL (<200); Estimated Glomerular Filt Rate 56; Glucose Fasting 92 mg/dL (60-99); HDL Cholesterol 46 mg/dL (>40); LDL Cholesterol Calculated 129 mg/dL (<100); Potassium 4.8 mmol/L (3.3-5.1); Sodium 141 mmol/L (135-145); Total Protein 7.5 g/dL (6.5-8.0); Triglycerides 77 mg/dL (<150)
== END 2024-01-19 06:24 | disposition home or self-care (01) ==
LOC: HO.LAB 06:23
PROVIDERS: PCP Internal Medicine; Visit Provider Internal Medicine
DX: I10 Essential (primary) hypertension (principal); E78.5 Hyperlipidemia, unspecified
CPT/HCPCS: 36415; 80053; 80061

== ENCOUNTER 2024-01-23 15:52 | Outpatient (REF) | payer OTHER, SELFPAY ==
--- NOTE | ~2024-01-23 | US_ITS ---
EXAMINATION: US EXTREMITY, NONVASCULAR CLINICAL INFORMATION: Other cyst of bone, right shoulder. Palpable abnormality right shoulder subcutaneous region. COMPARISON: None available. TECHNIQUE: Grayscale and color Doppler ultrasound imaging of the right shoulder was performed in the area of clinical concern. FINDINGS: In the immediate subcutaneous fat, there is a benign-appearing encapsulated lipoma without solid soft tissue elements present, measuring 4.8 x 1.7 x 7.7 cm in the right anterior shoulder, supraclavicular region, in the region of palpable concern. This has good through transmission, no internal color Doppler flow, and is circumscribed. No suspicious findings. US/US extremity nonvascular IMPRESSION: 1. Findings consistent with subcutaneous benign lipoma measuring up to 7.7 cm in the right anterior shoulder, supraclavicular region, in the region of concern. Electronically signed by: Will Ramos MD 02/10/2024 12:49 PM [facility]
== END 2024-01-23 15:53 | disposition home or self-care (01) ==
LOC: HO.US 15:52
PROVIDERS: PCP Internal Medicine; Visit Provider Internal Medicine
DX: M85.611 Other cyst of bone, right shoulder (principal)
CPT/HCPCS: 76882

== ENCOUNTER 2024-05-13 14:42 | Outpatient (AMB) | payer OTHER, SELFPAY ==
--- NOTE | 2024-05-13 14:48 | MHC.PC.OV ---
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 Accompanied by: Self / Same As Patient Allergies No Known Allergies Allergy (Verified 05/13/24 15:04) Medication List - Last Reconciled 05/13/24 by Cheli Joshau MD blood pressure monitor As directed sildenafil 50 mg PO DAILY PRN 30 days valsartan 160 mg PO DAILY Tobacco use date assessed: 05/13/24 Fall risk assessment: No Falls in past year Last assessed Fall Risk: 05/13/24 Dental Screening Dental Screen Date: 05/13/24 Did you have a dental visit in the last 12 months?: Yes Did you have a dental problem in the last 6 months where you did not have access to dental care?: No Was dental information given to patient?: Patient has dentist HPI HPI Comments History of Present Illness Details The patient is a 68-year-old male presenting with elevated blood pressure. His hypertension remains uncontrolled under the current regimen with valsartan 160 mg. He has never smoked, drinks alcohol sparingly, and has no known medication allergies. He reported nightly rigidity in the tendons behind his knees. He also discussed a parasitic infection previously treated during a stay in the [facility], presenting with diarrhea that resolved after medication. The patient noted urinary issues potentially related to the prostate. He has nocturia and will be referred to Urology. He also complains of lumbar pain and will be referred to pain management. Has a screening colonoscopy next month. He denied chest pain and reported overall concerns about the persistent high blood pressure and its potential consequences. Also has erectile dysfunction well control with sildenafil as needed. [facility] Medical History (Updated 05/14/24 @ 09:24 by Cheli Joshua MD) Hypertension Surgical History No pertinent past surgical history Family History Mother No problems noted. Father No problems noted. Social History Housing: House Alcohol intake: current Alcohol intake frequency: a few times a month Alcohol type: hard liquor Patient Tobacco Use Status: Never used Tobacco e-Cigarette/Vaping Use: Never Used Second Hand Smoke Exposure: No service: No Current occupational status: unemployed Cognitive needs: No Hearing needs: No Vision needs: Yes (glasses) Questionnaire Thrive Questionnaire Date Thrive assessed: 05/13/24 I am a: Patient What is your living situation today?: I have a steady place to live Within the past 12 months, did the food you bought not last and you didn't have the money to get more?: I choose not to answer this question Within the past 12 months, did you worry whether your food would run out before you got money to buy more?: Never true Do you have trouble paying for medicines?: No Do you have trouble getting transportation to medical appointments?: No Do you have trouble paying your heating and electricity bill?: No Do you have trouble taking care of your child, family member or friend?: No Do you have trouble with day-to-day activities such as bathing, preparing meals, shopping, managing finances, etc.?: No Are you currently unemployed and looking for a job?: No Are you interested in more education?: No Please select the resources that you would like help with: None Currently or been in a relationship where the following occur: I choose not to answer THRIVE Score: 0 AUDIT C Alcohol Use Questionnaire (AUDIT-C) 1. How often do you have a drink containing alcohol?: Monthly or less 2. How many drinks containing alcohol do you have on a typical day when you are drinking?: 1 or 2 3. How often do you have six or more drinks on one occasion?: Weekly Total Score: 4 URI-7 AMB Questionnaire URI-7 Date URI - 7 assessed: 05/13/24 Feeling nervous, anxious, or on edge: 0 = Not at all Not being able to stop or control worryin = Not at all Worrying too much about different things: 0 = Not at all Trouble relaxin = Not at all Being so restless that it is hard to sit still: 0 = Not at all Becoming easily annoyed or irritable: 0 = Not at all Feeling afraid as if something awful might happen: 0 = Not at all Total URI-7 score (0-4 normal; 5-9 mild; 10-14 moderate; 15-21 severe): 0 Source: Developed by Drs. Bud Lee, Alba Jc, Yeyo Gonzalez and colleagues, with an educational luis miguel from [employer]. URI-7 Assessment Billing URI-7 Assessment Tool: URI-7 Assessment 84511 Review of Systems Const All systems reviewed & are unremarkable except as noted in HPI and below Card Denies chest pain at rest, Denies chest pain with activity, Denies edema, Denies irregular heart rhythm, Denies claudication, Denies dyspnea, Denies dyspnea on exertion, Denies orthopnea, Denies paroxysmal nocturnal dyspnea and Denies slow heart rate Resp Denies cough, Denies dyspnea and Denies dyspnea on exertion GI Denies abdominal pain, Denies change in bowel habits, Denies excessive flatus, Denies nausea and Denies vomiting Reports erectile dysfunction Musc Reports back pain Physical exam (Primary Care) Vital Signs: Last Vital Signs BP 160/110 H 05/13/24 14:51 BMI result Body Mass Index 27.8 Tobacco/Smoking Status: Tobacco use Status Tobacco use date assessed 05/13/24 05/13/24 14:55 Patient Tobacco Use Status Never used Tobacco 05/13/24 14:55 e-Cigarette/Vaping Use Never Used 05/13/24 14:55 Thrive Assessment: Date of Thrive Assessment Date Thrive assessed 05/13/24 05/13/24 14:55 Currently or been in a relationship where the following occur: I choose not to answer Resp Effort & Inspection: normal respiratory effort Auscultation: clear to auscultation bilaterally Cardio Jugular venous distension: no JVD Rate: regular rate Rhythm: regular rhythm Heart sounds: S1 normal heart sound present and S2 normal heart sound present Extrem General: Yes full ROM Coding Level of Care Code Est Pt Level 4 (77023) Complex EM visit Add On G2211 Diagnoses Primary hypertension I10 Hypertension type: primary hypertension Lumbar pain M54.50 Nocturia R35.1 Erectile dysfunction, unspecified erectile dysfunction type N52.9 Erectile dysfunction type: unspecified Additional Codes URI-7 Assessment Billing - URI-7 Assessment Tool: URI-7 Assessment 32630 ([id number]) Time Spent (min) 21 Assessment & Plan Assessment & Plan (1) Hypertension: Code(s): I10 - Essential (primary) hypertension Category: Medical Qualifiers: Hypertension type: primary hypertension Qualified Code(s): I10 - Essential (primary) hypertension (2) Lumbar pain: Code(s): M54.50 - Low back pain, unspecified Category: Medical (3) Nocturia: Code(s): R35.1 - Nocturia Category: Medical (4) Erectile dysfunction: Code(s): N52.9 - Male erectile dysfunction, unspecified Category: Medical Qualifiers: Erectile dysfunction type: unspecified Qualified Code(s): N52.9 - Male erectile dysfunction, unspecified Plan Efforts to control the patient's hypertension include considering an adjusted dose of valsartan or potentially introducing another medication to prevent adverse cardiovascular consequences. Monitoring and follow-up in three weeks are advised to evaluate the effectiveness of any medication changes. For tendon rigidity, physical therapy is suggested to assess muscular health further. A prostate-specific evaluation, including laboratory work, is encouraged along with potential urology consultation. Cardiac assessment with an electrocardiogram is part of the proactive cardiovascular monitoring approach. Continued attention to gastrointestinal health with the pending colonoscopy is noted. Patient was informed and verbally consented to the use of an ambient scribe for clinic note documentation during this visit. I discussed the importance of effective management of hypertension to minimize the risk of serious events like heart attacks and strokes. We talked about the potential adjustments to his current antihypertensive regimen. The patient was informed of the benefits and potential side effects of increasing valsartan or adding another medication. Additionally, I emphasized the need for regular follow-up appointments to monitor his blood pressure trends. The discussion included explanations about physical therapy options for his leg issues and reassurances regarding the benign nature of his shoulder lipoma based on past imaging. Further evaluation of prostate concerns was agreed upon, involving PSA testing and potential urology follow-up. Anticipatory guidance on monitoring for potential recurrence of parasitic issues was provided. Orders: Orders ECG 12 lead EKG 05/13/24 I10 - Essential (primary) hypertension PSA,Total (Free>4and<10) 05/13/24 R35.1 - Nocturia Referrals Pain Management Referral M54.50 - Low back pain, unspecified Urology Referral R35.1 - Nocturia Medications: New valsartan 320 mg PO DAILY 90 days 90 tabs 1RF Refilled sildenafil administer 30 minutes to 4 hours before activity 50 mg PO DAILY 30 days PRN 6 tabs 11RF sexual activity Discontinued valsartan Discontinued Reason: Patient Completed Course 160 mg PO DAILY 90 tabs 3RF Patient Instructions: - Monitor blood pressure daily and record readings. - Attend follow-up appointment in three weeks for blood pressure review. - Follow through with scheduled colonoscopy. - Start physical therapy for leg rigidity as discussed. - Undergo PSA testing for prostate evaluation. - Complete electrocardiogram at your earliest convenience. - Maintain current medications unless advised otherwise. - Seek medical attention if experiencing severe symptoms like chest pain or signs of stroke.
[2024-05-13 14:51] VITALS: BP 160/110; BMI 27.8
== END 2024-05-13 15:26 | disposition home or self-care (01) ==
LOC: HO.HMCH 14:43
PROVIDERS: PCP Internal Medicine; Visit Provider Internal Medicine
DX: I10 Essential (primary) hypertension (principal); M54.50 Low back pain, unspecified; R35.1 Nocturia; N52.9 Male erectile dysfunction, unspecified

== ENCOUNTER → 2024-05-13 14:42 | Outpatient (REF) | payer OTHER, SELFPAY ==
--- NOTE | 2024-05-13 15:40 | ECG_ITS ---
Test Reason : I10 - Essential (primary) hypertension Blood Pressure : */* mmHG Vent. Rate : 97 BPM Atrial Rate : 97 BPM P-R Int : 188 ms QRS Dur : 88 ms QT Int : 378 ms P-R-T Axes : 44 28 166 degrees QTcB Int : 480 ms Normal sinus rhythm Possible Left atrial enlargement Left ventricular hypertrophy with repolarization abnormality ( [employer] product ) Prolonged QT Abnormal ECG No previous ECGs available Referred By: Cheli Joshua Electronically Signed By: CHINA CORTES
[2024-05-13 17:53] LABS: PSA,Total (Free>4and<10) 1.15 ng/mL (0.00-4.00)
== END ==
LOC: HO.CARD 14:42
PROVIDERS: PCP Internal Medicine; Visit Provider Internal Medicine
DX: I10 Essential (primary) hypertension (principal); R35.1 Nocturia; Z12.5 Encounter for screening for malignant neoplasm of prostate
CPT/HCPCS: 36415; 84153; 93005

== ENCOUNTER → 2024-05-13 15:40 | Outpatient (BNV) | payer OTHER, SELFPAY | PROVIDERS: PCP Internal Medicine; Visit Provider Internal Medicine | DX: I42.2 Other hypertrophic cardiomyopathy (principal); R94.31 Abnormal electrocardiogram [ECG] [EKG] | CPT/HCPCS: 93010 ==

== ENCOUNTER 2024-05-31 12:52 | Outpatient (AMB) | payer OTHER, SELFPAY ==
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
[2024-05-31 12:56] VITALS: BP 179/82; PULSE 72; BMI 27.8
== END 2024-05-31 13:25 | disposition home or self-care (01) ==
LOC: HO.PMC 12:53
PROVIDERS: PCP Internal Medicine; Referring Provider Internal Medicine; Visit Provider Nurse Practitioner Family
DX: M51.369 Other intervertebral disc degeneration, lumbar region without mention of lumbar back pain or lower extremity pain (principal); M47.817 Spondylosis without myelopathy or radiculopathy, lumbosacral region; M54.50 Low back pain, unspecified; M25.562 Pain in left knee; M53.3 Sacrococcygeal disorders, not elsewhere classified
CPT/HCPCS: 99204

== ENCOUNTER 2024-05-31 12:52 | Outpatient (REF) | payer OTHER, SELFPAY ==
--- NOTE | ~2024-05-31 | XR_ITS ---
CLINICAL HISTORY: M25.562 - Pain in left knee 3 view left knee Comparison: None Findings: No fractures or dislocations. Tricompartmental periarticular osteophyte formation, indicating osteoarthritis. No joint effusion. No radiopaque foreign body. IMPRESSION: 1. No acute findings. This document has been electronically signed by: Palma Hdz MD on 06/01/2024 13:42:42
== END 2024-05-31 12:53 | disposition home or self-care (01) ==
LOC: HO.XRAY 12:52
PROVIDERS: PCP Internal Medicine; Referring Provider Internal Medicine; Visit Provider Nurse Practitioner Family
DX: M25.562 Pain in left knee (principal)
CPT/HCPCS: 73562

== ENCOUNTER → 2024-05-31 13:44 | Outpatient (BNV) | payer OTHER, SELFPAY | PROVIDERS: PCP Internal Medicine; Referring Provider Internal Medicine; Visit Provider Radiology Diagnostic Radiology | DX: M25.562 Pain in left knee (principal) | CPT/HCPCS: 73562 ==

== ENCOUNTER → 2024-06-03 15:14 | Outpatient (BNVA) | payer OTHER, SELFPAY | PROVIDERS: PCP Internal Medicine ==

== ENCOUNTER 2024-06-21 08:06 | Inpatient (IN) | payer OTHER, SELFPAY ==
[2024-06-21] VITALS (15 sets, daily range): BP systolic 117–183; BP diastolic 81–136; PULSE 67–108; RESP 18–22; TEMP 36.2–37.4; O2SAT 92–100; BMI 30.4; BMI 27.0
--- NOTE | 2024-06-21 | ECG_ITS ---
Test Reason : SOB Blood Pressure : */* mmHG Vent. Rate : 106 BPM Atrial Rate : 106 BPM P-R Int : 186 ms QRS Dur : 82 ms QT Int : 342 ms P-R-T Axes : 45 17 178 degrees QTcB Int : 454 ms Sinus tachycardia Possible Left atrial enlargement T wave abnormality, consider lateral ischemia Abnormal ECG When compared with ECG of 13-May-2024 15:35, No significant change was found Referred By: Generic ED Physician Electronically Signed By: CHINA CORTES
--- NOTE | ~2024-06-21 | CT_ITS ---
CLINICAL HISTORY: abd pain, bloating CT abdomen and pelvis with contrast Comparison: None Findings: The lung bases are described on the chest CT same day. The gallbladder is decompressed. The liver, spleen, right adrenal gland and pancreas are unremarkable. The left adrenal gland is mildly prominent without discrete mass identified. Kidneys, ureters and bladder are within normal limits. No bowel obstruction or free air. Mild fecal retention. No pneumatosis, free fluid or abscess. Moderate diffuse atherosclerotic disease present. Chronic compression fracture at L3. No definite acute osseous finding. Impression: No definite acute process within the abdomen or pelvis. Mild fecal retention within the colon. Incidental findings as detailed. This document has been electronically signed by: Marlon Minor MD on 06/21/2024 11:14:37
--- NOTE | ~2024-06-21 | XR_ITS ---
CLINICAL HISTORY: sob 2 views chest Comparison: None Findings: Cardiac and mediastinal contours are normal. Mild interstitial prominence with scattered peribronchial thickening. Scattered faint ground-glass density. No effusion. No pneumothorax. No acute osseous finding. Impression: Interstitial prominence with scattered faint ground-glass density. Correlation for viral infectious process. This document has been electronically signed by: Marlon Minor MD on 06/21/2024 09:28:12
--- NOTE | ~2024-06-21 | CT_ITS ---
CLINICAL HISTORY: sob. ?chf ?viral process on CT vs pna CT chest without contrast Comparison: None Findings: The heart is top-normal in size. Several subcentimeter lymph nodes are noted within the mediastinum, nonspecific. Moderate atherosclerotic disease of the aorta and mild atherosclerotic disease of the coronary arteries noted. Moderate right effusion and small left effusion. Airway thickening and interlobular septal thickening most pronounced at the lung bases. No pneumothorax. No fracture or malalignment. The visualized upper abdomen demonstrates no definite acute process. Impression: There is interstitial edema and there are bilateral effusions. Follow-up recommended to ensure resolution. Additional incidental findings. This document has been electronically signed by: Marlon Minor MD on 06/21/2024 11:10:09
--- NOTE | 2024-06-21 08:25 | MHC.EDTECH ---
EKG was taken and read by the ED provider, Patient on the heart monitor and resting quietly on his bed within call robles in his bed side.
[2024-06-21 08:35] LABS: MANUAL DIFF FLAG NO
[2024-06-21 08:38] LABS: Basophils Percent Auto 0.4 % (0-2); Eosinophils Absolute Auto 0.2 X10*3/uL (0.0-0.4); Eosinophils Percent Auto 2.1 % (0-4); Hemoglobin 17.9 g/dl (14.0-18.0); Imm Gran Abs Auto 0.02 X10*3/uL (0.00-0.03); Imm Gran Pct Auto 0.3 % (0.0-0.4); Lymphocytes Absolute Auto 1.8 X10*3/uL (1.2-4.9); Lymphocytes Percent Auto 24.1 % (20-40); Mean Corpuscular HGB Conc 31.9 g/dl (31.0-36.0); Mean Corpuscular Hemoglobin 28.5 pg (27.0-33.0); Mean Corpuscular Volume 89.5 fL (80.0-98.0); Mean Platelet Volume 10.2 fL (9.4-12.4); Monocytes Absolute Auto 0.6 X10*3/uL (0.1-1.2); Monocytes Percent Auto 8.3 % (2-11); Neutrophils Absolute Auto 4.7 x10*3/uL (2.0-8.3); Neutrophils Percent Auto 64.8 % (45-73); Platelet Count 292 X10*3/uL (160-400); Red Blood Count 6.28 X10*6/uL (4.60-5.80); Red Cell Distribution Width 13.3 % (11.0-16.0); White Blood Count 7.3 X10*3/uL (4.8-10.8)
[2024-06-21 08:41] LABS: Hematocrit 56.2 % (42.0-52.0)
--- NOTE | 2024-06-21 08:44 | ED_ITS ---
HPI - General Adult General Chief complaint: General Medical Stated complaint: diff breathing high BP Time Seen by Provider: 06/21/24 08:43 Source: patient, family, RN notes reviewed and old records reviewed Mode of arrival: ambulatory History of Present Illness ED Provider: Divya Gloria PA-C HPI narrative: 68-year-old male with a past medical history HTN, presenting to the ED complaining of SOB, bilateral LE edema/swelling and HTN x1 week. Also reports abdominal discomfort and bloating. Denies fever, chills, chest pain, nausea, vomiting, diarrhea, dysuria/hematuria, lightheadedness/dizziness. Denies history of CHF or taking diuretic. Related Data Previous Rx's ?Medication ?Instructions ?Recorded blood pressure monitor #1 ea 11/21/22 valsartan 320 mg tablet 320 mg PO DAILY 90 days #90 tabs 05/13/24 lidocaine 5 % topical patch 1 patch topical DAILY pain 30 days 05/31/24 #30 ea Allergies Allergy/AdvReac Type Severity Reaction Status Date / Time No Known Allergies Allergy Verified 06/21/24 08:19 Review of Systems 2 Review of Systems: Yes all other systems are reviewed and are negative Constitutional: Constitutional: Reports as per [facility] Past Medical History Attestation statement: The following information was validated with the patient. Source: old records reviewed Medical History Lumbar degenerative disc disease Compression fracture of L3 vertebra Hypertension Surgical History No pertinent past surgical history Family History Family History Mother No problems noted. Father No problems noted. Social History Social History Housing: House Alcohol intake: current Alcohol intake frequency: holidays/special occasions only Alcohol type: hard liquor Patient Tobacco Use Status: Never used Tobacco Smoked in Last 30 Days: No e-Cigarette/Vaping Use: Never Used Second Hand Smoke Exposure: No Use of substances other than those prescribed or required for medical reasons: No Advance Directives: No Advance Directives Information Provided: Yes Do you have a plan to hurt others: No Plan service: No Current occupational status: unemployed Cognitive needs: No Hearing needs: No Vision needs: Yes (glasses) Physical Exam ED Vital Signs: Vital Signs - 24 hr 06/21/24 08:15 06/21/24 08:39 06/21/24 09:30 Temperature 99.3 F Pulse Rate 106 H 102 H Respiratory Rate 22 H 21 H Blood Pressure 183/127 H 173/112 H 165/110 H Pulse Oximetry 100 100 Oxygen Delivery Method Room Air Room Air 06/21/24 10:10 06/21/24 12:06 06/21/24 13:19 Temperature 98.4 F Pulse Rate 94 94 Respiratory Rate 19 Blood Pressure 165/110 H 176/124 H 164/120 H Pulse Oximetry 98 Oxygen Delivery Method Room Air 06/21/24 13:47 06/21/24 14:30 06/21/24 14:31 Temperature 98.2 F Pulse Rate 108 H 99 Respiratory Rate 18 Blood Pressure 173/136 H 162/110 H 162/110 H Pulse Oximetry 98 Oxygen Delivery Method Room Air 06/21/24 14:32 06/21/24 14:38 06/21/24 14:58 Temperature Pulse Rate 100 100 92 Respiratory Rate 18 Blood Pressure 162/110 H 148/106 H 159/108 H Pulse Oximetry 95 Oxygen Delivery Method Room Air BMI result Body Mass Index 30.4 Const General: cooperative, healthy appearing and no acute distress Orientation/consciousness: patient oriented x3 Limitations: no limitations HENMT Head: Yes normal to inspection and Yes atraumatic Ears: hearing grossly normal bilaterally General nose exam: Normal external nose present Face and sinus: Yes normal facial exam Eyes General: appearance normal, both eyes and all related structures EOM: EOMs intact bilaterally Neck Neck: Yes normal visual inspection and Yes no meningeal signs Resp Effort & Inspection: normal respiratory effort and no respiratory distress Auscultation: crackles bilateral at the base Cardio Rate: regular rate and tachycardic Heart sounds: S1 normal heart sound present and S2 normal heart sound present GI Inspection: Yes normal to inspection and Yes distended (mild) Palpation (GI): Soft to palpation, Tenderness to palpation present (GI) in the epigastrum, no guarding and not rigid General: Yes no CVA tenderness Back/Spine/Pelvis Back: no CVA tenderness Skin Rashes: no rashes Wounds: no wounds Neuro General: patient oriented x3, tone normal and no meningeal signs Cranial nerves: Yes CN's II-XII intact bilaterally Gait exam (Neuro): Normal gait present Extrem Other: 2+ bilateral LE pitting edema General: Yes edema Course Course Course Narrative: -945--mildly elevated AST/ALT. Troponin 25.6 > will obtain 3hr repeat. -BNP 1989 > will give 40mg IV Lasix -viral testing negative XR chest 1V Impression: Interstitial prominence with scattered faint ground-glass density. Correlation for viral infectious process. > will obtain lactic/blood cultures and CT for further eval. Still low suspicion for severe sepsis at this time, suspect findings from CHF/edema -120--repeat troponin without significant rise, mi unlikely CT chest wo IV con Impression: There is interstitial edema and there are bilateral effusions. Follow-up recommended to ensure resolution. Additional incidental findings. CT abdomen pelvis w IV con Impression: No definite acute process within the abdomen or pelvis. Mild fecal retention within the colon. Incidental findings as detailed. > patient persistently hypertensive. continues to deny DOUGLAS and CP. Plan for admission. We will give nitro paste & reassess >1400--patient persistently hypertensive most recently 173/136 despite IV Lasix, nitro paste, and IV Hydralazine. Case d/w Dr. Guzman > bedside ECHO w/o effusion or LV dysfunction > will give a few doses SL nitro, PO Clonidine & PO Metoprolol & reassess (discussed Nitro drip however this requires the ICU - will try other therapies 1st) > BP improved to 159/108, will re-discuss with hospitalist Medications Administered Generic Name Dose Route Start Last Admin Trade Name Freq PRN Reason Stop Dose Admin Nitroglycerin 0.4 mg 06/21/24 14:19 06/21/24 14:38 Nitroglycerin 0.4 Mg Tab.Subl SUBLINGUAL 0.4 mg [id number] PRN Administration hypertension Discontinued Medications Generic Name Dose Route Start Last Admin Trade Name Freq PRN Reason Stop Dose Admin Acetaminophen 650 mg 06/21/24 09:19 06/21/24 09:30 Acetaminophen 325 Mg Tablet PO 06/21/24 09:20 Not Given ONCE ONE Clonidine HCl 0.2 mg 06/21/24 14:19 06/21/24 14:31 Clonidine Hcl 0.2 Mg Tablet PO 06/21/24 14:20 0.2 mg ONCE ONE Administration Protocol Furosemide 40 mg 06/21/24 09:16 06/21/24 09:30 Furosemide 40 Mg/4 Ml Vial IVPUSH 06/21/24 09:17 40 mg STAT STA Administration Protocol Hydralazine HCl 5 mg 06/21/24 13:04 06/21/24 13:19 Hydralazine Hcl 20 Mg/Ml Vial IVPUSH 06/21/24 13:05 5 mg ONCE ONE Administration Protocol Iohexol 100 ml 06/21/24 10:34 06/21/24 10:34 Iohexol 350 Mg/Ml 100 Ml Infus..Btl IV 06/21/24 10:35 85 ml ONCE ONE Administration Metoprolol Tartrate 50 mg 06/21/24 14:19 06/21/24 14:30 Metoprolol Tartrate 50 Mg Tablet PO 06/21/24 14:20 50 mg ONCE ONE Administration Protocol Nitroglycerin 0.5 inch 06/21/24 12:03 06/21/24 12:06 Nitroglycerin 2 % Oint 1 Gm Packet TRANSDERMA 06/21/24 12:04 0.5 inch ONCE ONE Administration Medical Decision Making Medical Decision Making [facility] Narrative: 68-year-old male with a past medical history HTN, presenting to the ED complaining of SOB, bilateral LE edema/swelling and HTN x1 week. Also reports abdominal discomfort and bloating. On exam hypertensive (reports compliance with his Losartan), tachycardic, tachypneic, low-grade temp 99.3 degrees, NAD/nontoxic appearing, bibasilar crackles appreciated. Abdomen is soft, mildly distended with upper tenderness, no rebound or guarding. Bilateral LE pitting edema noted. Concern for new onset CHF vs viral illness vs ?PNA vs hypertensive urgency/emergency. Rule out intra-abdominal pathology including cholecystitis/lithiasis vs pancreatitis. Lower suspicion for acute PE/DVT at this time Low suspicion for severe sepsis [0984] Plan: EKG, labs, UA, CXR, CT AP, viral testing, re-evaluate Please refer to course for remaining clinical decision making, interpretation of labs/imaging results, and discussions with consultants and/or family members. Differential Diagnosis Differential Diagnoses: The differential diagnosis associated with the presentation includes As above Admission/Observation Consideration of admission/observation: Escalation of care including admission/observation considered Lab Data [facility] Lab Attestation statement: I reviewed the patient's lab results. 06/21/24 08:30 06/21/24 08:30 Labs: Lab Results 06/21/24 06/21/24 06/21/24 Range/Units 08:30 08:31 10:07 WBC 7.3 (4.8-10.8) X10*3/uL RBC 6.28 H (4.60-5.80) X10*6/uL Hgb 17.9 (14.0-18.0) g/dl Hct 56.2 H (42.0-52.0) % MCV 89.5 (80.0-98.0) fL MCH 28.5 (27.0-33.0) pg MCHC 31.9 (31.0-36.0) g/dl RDW 13.3 (11.0-16.0) % Plt Count 292 (160-400) X10*3/uL MPV 10.2 (9.4-12.4) fL Immature Gran % (Auto) 0.3 (0.0-0.4) % Neut % (Auto) 64.8 (45-73) % Lymph % (Auto) 24.1 (20-40) % [place] % (Auto) 8.3 (2-11) % Eos % (Auto) 2.1 (0-4) % Baso % (Auto) 0.4 (0-2) % Lymph # (Auto) 1.8 (1.2-4.9) X10*3/uL [place] # (Auto) 0.6 (0.1-1.2) X10*3/uL Eos # (Auto) 0.2 (0.0-0.4) X10*3/uL Baso # (Auto) 0.0 (0.0-0.2) X10*3/uL Abs Immat Gran (auto) 0.02 (0.00-0.03) X10*3/uL Absolute Neuts (auto) 4.7 (2.0-8.3) x10*3/uL Absolute Nucleated RBC 0.000 (0.0-0.012) X10*3/uL Nucleated RBC % (auto) 0.0 (0.0-0.2) /100WBC Hold Blue Top SEE NOTE Sodium 143 (135-145) mmol/L Potassium 4.8 (3.3-5.1) mmol/L Chloride 106 (96-108) mmol/L Carbon Dioxide 28 (22-29) mmol/L Anion Gap 14 (12-20) BUN 20 H (9-16) mg/dL Creatinine 1.38 (0.5-1.4) mg/dL Estim Creat Clear Calc 54.9 Estimated GFR 51 Random Glucose 200 H (60-115) mg/dL Lactic Acid 1.7 (0.5-2.0) mmol/L Calcium 9.5 (8.4-10.2) mg/dL Magnesium 2.3 (1.6-2.6) mg/dL Total Bilirubin 0.7 (0.0-1.0) mg/dL AST 42 H (5-37) U/L ALT 77 H (0-40) U/L Alkaline Phosphatase 72 (39-117) U/L Troponin I High Sens 25.6 (<3.5-35.0) ng/L B-Natriuretic Peptide 1990 H (<100) pg/mL Total Protein 7.2 (6.5-8.0) g/dL Albumin 4.1 (3.5-5.0) g/dL Influenza Type A (PCR) NEGATIVE (Negative) Influenza Type B (PCR) NEGATIVE (Negative) RSV RNA Qual (PCR) NEGATIVE (Negative) SARS-CoV-2 RNA (RT-PCR) NEGATIVE (Negative) 06/21/24 Range/Units 11:32 WBC (4.8-10.8) X10*3/uL RBC (4.60-5.80) X10*6/uL Hgb (14.0-18.0) g/dl Hct (42.0-52.0) % MCV (80.0-98.0) fL MCH (27.0-33.0) pg MCHC (31.0-36.0) g/dl RDW (11.0-16.0) % Plt Count (160-400) X10*3/uL MPV (9.4-12.4) fL Immature Gran % (Auto) (0.0-0.4) % Neut % (Auto) (45-73) % Lymph % (Auto) (20-40) % [place] % (Auto) (2-11) % Eos % (Auto) (0-4) % Baso % (Auto) (0-2) % Lymph # (Auto) (1.2-4.9) X10*3/uL [place] # (Auto) (0.1-1.2) X10*3/uL Eos # (Auto) (0.0-0.4) X10*3/uL Baso # (Auto) (0.0-0.2) X10*3/uL Abs Immat Gran (auto) (0.00-0.03) X10*3/uL Absolute Neuts (auto) (2.0-8.3) x10*3/uL Absolute Nucleated RBC (0.0-0.012) X10*3/uL Nucleated RBC % (auto) (0.0-0.2) /100WBC Hold Blue Top Sodium (135-145) mmol/L Potassium (3.3-5.1) mmol/L Chloride (96-108) mmol/L Carbon Dioxide (22-29) mmol/L Anion Gap (12-20) BUN (9-16) mg/dL Creatinine (0.5-1.4) mg/dL Estim Creat Clear Calc Estimated GFR Random Glucose (60-115) mg/dL Lactic Acid (0.5-2.0) mmol/L Calcium (8.4-10.2) mg/dL Magnesium (1.6-2.6) mg/dL Total Bilirubin (0.0-1.0) mg/dL AST (5-37) U/L ALT (0-40) U/L Alkaline Phosphatase (39-117) U/L Troponin I High Sens 21.2 (<3.5-35.0) ng/L B-Natriuretic Peptide (<100) pg/mL Total Protein (6.5-8.0) g/dL Albumin (3.5-5.0) g/dL Influenza Type A (PCR) (Negative) Influenza Type B (PCR) (Negative) RSV RNA Qual (PCR) (Negative) SARS-CoV-2 RNA (RT-PCR) (Negative) Independent Interpretation I performed an independent interpretation of an: EKG (My interpretation EKG sinus tachycardia rate of 106. WA interval 186. No significant change when compared to prior. No STEMI ), Plain X-Ray and CT Scan Radiology Impression Discussion of test interpretation with radiology: I have reviewed the radiologist's reading. External Record Review External record reviewed: Inpatient record, Office record, Outpatient record, Prior outpatient labs, Prior outpatient radiology, Primary care record and Outside ED record Tests considered The following testing was considered but not selected: As above Prescription Management I considered prescription management with: Pain Medication, Antibiotic and Other Chronic Conditions Patient?s care impacted by: Hypertension Social Determinants Patient?s care significantly limited by Social Determinants of Health including: Other Social Determinant of Health Critical Care Time Critical Care Time Critical Care Time: Yes Total Critical Care Time: 60 Attestation: I have personally provided critical care time exclusive of time spent on separately billable procedures. Time includes review of lab data, radiology results, discussion with consultants, and monitoring for potential decompensation. Intervention performed as documented. Discharge Plan Discharge Clinical Impression: New onset of congestive heart failure, Hypertension Patient Disposition: Admitted As Inpatient Print Language: Turkish
--- NOTE | 2024-06-21 08:45 | PC.NURSE ---
manager drug safety utilized. a&ox4. vss and up to date aside from being hypertensive/tachycardic. pt denies any chest pain/palpitations. pt on RA baseline as well as currently w/o difficulty - SPO2 @ 100%. no sob/wob noted. respirations even/unlabored. pt presents to the ED c/o increased SOB induced by exertion/position change as well as hypertension and bilateral LE swelling x 1 week. pt denies any dizziness/lightheadedness/fevers/chills. denies hx asthma/copd/CHF. pt compliant w/ BP medication. 2+ pitting edema in LE bilat. 20gIV placed in the left AC - labs obtained/sent to lab. ekg performed by tech. pending CXR to be completed at this time. plan of care ongoing. call robles placed within reach.
[2024-06-21 08:58] LABS: Alanine Aminotransferase 77 U/L (0-40); Albumin Level 4.1 g/dL (3.5-5.0); Alkaline Phosphatase 72 U/L (39-117); Anion Gap 14 (12-20); Aspartate Amino Transferase 42 U/L (5-37); Bilirubin Total 0.7 mg/dL (0.0-1.0); Blood Urea Nitrogen 20 mg/dL (9-16); Calcium 9.5 mg/dL (8.4-10.2); Carbon Dioxide 28 mmol/L (22-29); Chloride 106 mmol/L (96-108); Creatinine Clr Calc Pharmacy 54.9; Estimated Glomerular Filt Rate 51; Glucose Random 200 mg/dL (60-115); Magnesium 2.3 mg/dL (1.6-2.6); Potassium 4.8 mmol/L (3.3-5.1); Sodium 143 mmol/L (135-145); Total Protein 7.2 g/dL (6.5-8.0)
[2024-06-21 09:02] LABS: B Type Natriuretic Peptide 1990 pg/mL (<100)
[2024-06-21 09:06] LABS: Troponin-I High Sensitivity 25.6 ng/L (<3.5-35.0)
[2024-06-21 09:19] LABS: Influenza A PCR NEGATIVE (Negative); Influenza B PCR NEGATIVE (Negative); Resp Syncy Virus RNA Qual PCR NEGATIVE (Negative); SARS COV2 PCR INHOUSE NEGATIVE (Negative)
[2024-06-21] MEDS: Furosemide 40 MG/4 ML VIAL IVPUSH ×2 (09:30→17:25)
--- NOTE | 2024-06-21 09:32 | PC.NURSE ---
pt medicated per provider order. pt provided w/ urinal. effectiveness pending. pt refused tylenol administration - returned to xis. pt waiting for CT to be completed. plan of care ongoing. call robles placed within reach.
[2024-06-21 10:34] LABS: Lactic Acid 1.7 mmol/L (0.5-2.0)
[2024-06-21] MEDS: iohexoL 350 MG/ML 100 ML INFUS..BTL IV (10:34)
[2024-06-21 11:57] LABS: Troponin-I High Sensitivity 21.2 ng/L (<3.5-35.0)
[2024-06-21] MEDS: Nitroglycerin 2 % Oint 1 GM Packet 0.5 INCH TRANSDERMA (12:06)
--- NOTE | 2024-06-21 12:07 | PC.NURSE ---
pt remains hypertensive/asymptomatic. nitro paste applied to right side of pt's chest. effectiveness pending.
[2024-06-21] MEDS: hydrALAZINE HCl 20 MG/ML VIAL 5 MG IVPUSH (13:19)
--- NOTE | 2024-06-21 13:52 | PHA.MEDREC ---
Pharmacy Consult ? Medication Reconciliation Pharmacy has completed the medication reconciliation. Spoke to patient at bedside, he was able to name his valsartan and stated that his verapamil was a new RX but he hasn't started it yet so I left it off his list. Noted he used a lidocaine patch last week.
[2024-06-21] MEDS: Metoprolol Tartrate 50 MG TABLET PO (14:30)
[2024-06-21] MEDS: cloNIDine HCL 0.2 MG TABLET PO (14:31)
[2024-06-21] MEDS: Nitroglycerin 0.4 MG TAB.SUBL SUBLINGUAL ×2 (14:32→14:38)
--- NOTE | 2024-06-21 15:56 | PC.NURSE ---
BP decreased s/p multiple medication administrations. otherwise vss and up to date. nsr on the ekg monitor tech. nitro paste removed from right side of chest wall per provider order. pt remains on RA w/o difficulty. no sob/wob noted. respirations even/unlabored. pending admission. plan of care ongoing. call robles placed within reach.
--- NOTE | 2024-06-21 16:18 | P.HPHOSP_ITS ---
History of Present Illness Date of Service: 06/21/24 Chief Complaint: Shortness of breath 68-year-old man presented with complaints of worsening shortness of breath over the last week and lower extremity edema. He reports a history of hypertension and reports that he checks his blood pressure home and it is usually always high with systolic blood pressures over 150, 160. He reports that he takes valsartan at home and follows closely with his primary care provider. He denied any hospitalizations in over 30 years. He denied any symptoms of headache, visual changes, chest pain, shortness of breath, recent illness. He did report over the last week he has noticed with ambulation he was becoming more shortness of breath even worse with walking up stairs. He also reported lower extremity swelling. He denied any history of congestive heart failure or cardiac conditions. In the ER, BNP noted to be elevated at 1989, normal troponin, creatinine 1.38, appears to be chronic, chest CT showing interstitial edema and bilateral effusions. Blood pressures elevated as high as 183/127, started on IV nitro drip, given nitro paste and hydralazine in the ER. Blood pressure came down to systolic 112. Patient is asymptomatic. Plan will be to admit patient for further management and treatment of acute congestive heart failure. Review of Systems 2 Review of Systems: Denies any recent fever chills or decrease in appetite respiratory see HPI cardiovascular denied chest pain, reported LE edema and dyspnea gastrointestinal denies any dysphagia abdominal pain nausea vomiting or diarrhea genitourinary denies any dysuria frequency or hematuria musculoskeletal denies any joint pain or swelling neuropsych denies any weakness or seizures all other systems reviewed are negative [facility] Medical History Lumbar degenerative disc disease Compression fracture of L3 vertebra Hypertension Family History Mother No problems noted. Father No problems noted. Surgical History No pertinent past surgical history Social History Housing: House Alcohol intake: current Alcohol intake frequency: holidays/special occasions only Alcohol type: hard liquor Patient Tobacco Use Status: Never used Tobacco Smoked in Last 30 Days: No e-Cigarette/Vaping Use: Never Used Second Hand Smoke Exposure: No Use of substances other than those prescribed or required for medical reasons: No Advance Directives: No Advance Directives Information Provided: Yes Do you have a plan to hurt others: No Plan service: No Current occupational status: unemployed Cognitive needs: No Hearing needs: No Vision needs: Yes (glasses) Meds Allergies Allergy/AdvReac Type Severity Reaction Status Date / Time No Known Allergies Allergy Verified 06/21/24 08:19 Active Medications: Current Medications Nitroglycerin (Nitroglycerin 0.4 Mg Tab.Subl) 0.4 mg SUBLINGUAL [id number] PRN PRN Reason: hypertension Last Admin: 06/21/24 14:38 Dose: 0.4 mg Physical Exam 2 Vital Signs and Narrative: Vital Signs: Last Vital Signs Temp 97.7 F 06/21/24 15:53 Pulse 67 06/21/24 15:53 Resp 18 06/21/24 15:53 BP 117/81 06/21/24 15:53 Pulse Ox 92 06/21/24 15:53 O2 Del Method Room Air 06/21/24 15:53 BMI result Body Mass Index 30.4 Appearing in no acute distress head is normocephalic atraumatic eyes pupils are PERRLA sclera is anicteric mouth throat mucous membranes are intact and moist neck is supple no lymphadenopathy, no JVD noted lung sounds rales heart regular rate rhythm, clear S1, S2 positive bowel sounds, abdomen is soft, nontender neuro patient is alert x3, no focal deficits +2 LE edema Results Labs 06/21/24 08:30 06/21/24 08:30 Labs: Laboratory Results - last 24 hr 06/21/24 06/21/24 06/21/24 08:30 08:31 10:07 MCV 89.5 MCH 28.5 MCHC 31.9 RDW 13.3 Plt Count 292 MPV 10.2 Immature Gran % (Auto) 0.3 Neut % (Auto) 64.8 Lymph % (Auto) 24.1 [place] % (Auto) 8.3 Eos % (Auto) 2.1 Baso % (Auto) 0.4 Lymph # (Auto) 1.8 [place] # (Auto) 0.6 Eos # (Auto) 0.2 Baso # (Auto) 0.0 Abs Immat Gran (auto) 0.02 Absolute Neuts (auto) 4.7 Absolute Nucleated RBC 0.000 Nucleated RBC % (auto) 0.0 Hold Blue Top SEE NOTE Anion Gap 14 Estim Creat Clear Calc 54.9 Estimated GFR 51 Random Glucose 200 H Lactic Acid 1.7 Calcium 9.5 Magnesium 2.3 Total Bilirubin 0.7 AST 42 H ALT 77 H Alkaline Phosphatase 72 B-Natriuretic Peptide 1989 H Total Protein 7.2 Albumin 4.1 Influenza Type A (PCR) NEGATIVE Influenza Type B (PCR) NEGATIVE RSV RNA Qual (PCR) NEGATIVE SARS-CoV-2 RNA (RT-PCR) NEGATIVE Assessment and Plan (1) Hypertension: Qualifiers: Hypertension type: primary hypertension Qualified Code(s): I10 - Essential (primary) hypertension Status: Acute (2) New onset of congestive heart failure: Status: Acute Plan 68 year old man admitted with new onset heart failure and hypertensive urgency CHF, unspecified New onset telemetry BNP 1989 Possibly secondary to uncontrolled elevated blood pressure IV lasix 40 mg BID cardiology consultation Echocardiogram daily weights strict intake and output HTN urgency treated with nitro drip in the ED BP better follow closely start amlodipine in the morning to avoid hypotension Transaminitis Mild Likely secondary to volume overload DVT prophylaxis with heparin Full code Quality Stroke Does the patient have a stroke diagnosis?: No VTE Prior VTE?: No VTE Risk Level:: Medical - moderate - high VTE Device Contraindication: Treatment Not Indicated VTE Drug Contraindication: N/A - Med Ordered
[2024-06-21] MEDS: Heparin Sodium,Porcine 5,000 UNIT/ML VIAL 5000 UNIT SUBCUT (17:25)
[2024-06-21] MEDS: 0.9 % Sodium Chloride Flush 3 ML SYRINGE IVFLUSH (20:25)
[2024-06-22] VITALS (7 sets, daily range): BP systolic 116–147; BP diastolic 72–92; PULSE 70–88; RESP 15–20; TEMP 36.4–36.9; O2SAT 91–98
[2024-06-22] MEDS: Heparin Sodium,Porcine 5,000 UNIT/ML VIAL 5000 UNIT SUBCUT ×2 (05:51→17:54)
[2024-06-22 06:26] LABS: Hematocrit 53.6 % (42.0-52.0); Hemoglobin 17.8 g/dl (14.0-18.0); Mean Corpuscular HGB Conc 33.2 g/dl (31.0-36.0); Mean Corpuscular Hemoglobin 28.5 pg (27.0-33.0); Mean Corpuscular Volume 85.9 fL (80.0-98.0); Mean Platelet Volume 10.1 fL (9.4-12.4); Platelet Count 249 X10*3/uL (160-400); Red Blood Count 6.24 X10*6/uL (4.60-5.80); Red Cell Distribution Width 13.2 % (11.0-16.0)
[2024-06-22 06:48] LABS: B Type Natriuretic Peptide 2189 pg/mL (<100)
[2024-06-22 06:49] LABS: Anion Gap 12 (12-20); Blood Urea Nitrogen 22 mg/dL (9-16); Carbon Dioxide 26 mmol/L (22-29); Chloride 104 mmol/L (96-108); Creatinine Clr Calc Pharmacy 55.3; Estimated Glomerular Filt Rate 60; Glucose Random 138 mg/dL (60-115); Potassium 4.1 mmol/L (3.3-5.1); Sodium 138 mmol/L (135-145)
--- NOTE | 2024-06-22 07:00 | CA_ITS ---
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 The calculated ejection fraction is 28% by biplane method. - Evidence suggests grade II (moderate) diastolic dysfunction. - There is moderately decreased right ventricular systolic function. - No obvious valvular pathology seen on this study. - There is mild dilatation of the ascending aorta measuring 3.80 cm. Findings Procedure Information Contrast agent, definity, is being given per protocol without apparent complications. Left Ventricle Normal left ventricular cavity size. There is moderately increased left ventricular wall thickness. The left ventricular systolic function is severely decreased. The calculated ejection fraction is 28% by biplane method. There is severe global hypokinesis. Evidence suggests grade II (moderate) diastolic dysfunction. Right Ventricle Normal right ventricular cavity size. There is moderately decreased right ventricular systolic function. Atria The left atrium is moderately dilated. The right atrium is normal in size. Aortic Valve There is a normal trileaflet aortic valve. There is mild calcification of the aortic valve. There is no aortic valve stenosis. There is no aortic valve regurgitation. Mitral Valve The mitral valve appears normal. There is no mitral valve regurgitation. There is no mitral valve stenosis. Pulmonic Valve The pulmonic valve is likely normal. Tricuspid Valve There is no tricuspid valve regurgitation. Tricuspid regurgitation envelope is inadequate for calculation of right ventricular systolic pressure. Great Vessels The aorta was not well visualized. The aortic annulus and sinuses of valsalva are normal in size. There is mild dilatation of the ascending aorta measuring 3.80 cm. Venous The inferior vena cava is normal in size and collapses greater than 50% with inspiration. Pericardium/Pleural There is no evidence of pericardial effusion. Prior Study Comparison No prior study available for comparison. Recommendations, Care & Conclusions No obvious valvular pathology seen on this study. Measurements 2D Linear Measurements IVSd: 1.16 0.6-0.9/0.6-1.0 cm LVIDd: 4.46 3.9-5.3/4.2-5.9 cm LVIDd Index: 2.35 2.4-3.2/2.2-3.1 cm/m2 LVIDs: 3.79 2.0-3.6 cm LVPWd: 1.42 0.7-1.1 cm LA Diam: 4.10 2.7-3.8/3.0-4.0 cm LAIDs Index: 2.16 1.5-2.3 cm/m2 LV Mass: 270.61 67-162/88-224 g LV Mass Index: 142.42 43-95/49-115 g/m2 LVOT Diam: 2.10 3.0+(-)1.3 cm 2D Systolic Function EF 4C: 32.80 >55% EF 2C: 24.20 >55% EF BiP: 27.90 >55% Mitral Valve MV Pk E: 0.80 MV PK A: 0.34 MV Decel Time: 166.00 E/A: 2.30 E'Lateral: 3.92 E'Medial: 3.26 E/E' Med: 24.60 E/E' Lat: 20.40 PHT: 49.00 MVA PHT: 4.49 Decel Allen: 4.82 Aortic Valve AoV Pk Harinder: 0.98 AoV Mn Harinder: 0.68 AoV VTI: 0.15 AoV Pk Grad: 4.00 Aov Mn Grad: 2.00 TEREZA Cont.VTI: 2.82 LVOT LVOT Pk Harinder: 0.80 LVOT Mn Harinder: 0.50 LVOT VTI: 0.12 LVOT Pk Grad: 3.00 LVOT Mn Grad: 1.00 LVOT Diam: 2.10 LVOT Area: 3.46 Diastolic Function MV Pk E: 0.80 MV Pk A: 0.34 E/A: 2.30 E'Medial: 3.26 E/E' Med: 24.60 E' Laterial: 3.92 E/E' Lat: 20.40 Right Ventricle TAPSE (mm): 12.40 TVS' Harinder: 8.49 Tricuspid Valve RA Press: 3.00 Great Vessels Aorta Sinus of Valsalva: 3.20 2.0-3.5 cm Ao Asc: 3.80 2.1-3.4 cm Ao Arch: 3.30 Pulmonary Valve PV Pk Harinder: 0.76 Peak PV Grad: 2.00 Updated in Other Vendor System with Status of Final Jero Dietz MD electronically signed on 06/22/2024 3:31:46 PM with status of Final
[2024-06-22 07:05] LABS: Thyroid Stimulating Hormone 2.37 uIU/mL (0.32-4.0)
[2024-06-22 07:39] LABS: Estimated Average Glucose 143 mg/dL; Hemoglobin A1C 218.9881 umol/L; Hemoglobin A1c % 6.6 % (<6.0); Total Hemoglobin (HGBA1C) 4535.6982 umol/L
[2024-06-22] MEDS: Furosemide 40 MG/4 ML VIAL 60 MG IVPUSH ×2 (09:11→17:54)
[2024-06-22] MEDS: amLODIPine Besylate 5 MG TABLET PO (09:11)
[2024-06-22] MEDS: 0.9 % Sodium Chloride Flush 3 ML SYRINGE IVFLUSH (09:12)
--- NOTE | 2024-06-22 09:12 | P.CONCA_ITS ---
History of Present Illness History of Present Illness Date of Service: 06/22/24 Chief complaint: CHF Narrative: This is a cardiology consultation regarding question of congestive heart failure. Patient denies any previous cardiac history including coronary disease or myocardial infarction or cardiomyopathy or in fact anything cardiac related. It seems that he has hypertension but not well controlled. Current admissions because of shortness of breath over the last few weeks. Also had some lower extremity swelling. Upon evaluation in the ER, apparently had a high cardiac BNP and some elevation in serum creatinine. CT chest had shown interstitial edema/effusions. Hence he is admitted for further care. Per notes, he was also put on nitro paste/nitro drip, hydralazine for high blood pressure in the ER. Currently, he states he is feeling much better. Review of Systems 2 Review of Systems: Yes all other systems are reviewed and are negative Constitutional: Constitutional: Reports as per HPI and Reports no additional constitutional complaints Eyes: Eyes: Reports as per HPI and Denies no additional eye complaints ENT: Denies system reviewed and no additional complaints, except as documented and Reports as per HPI Cardiovascular: Cardiovascular: Reports as per HPI, Reports no additional cardiovascular complaints, Denies acrocyanosis, Denies cool extremities, Denies chest pain, Reports leg edema, Denies lightheadedness, Denies palpitations and Reports dyspnea Respiratory: Respiratory: Reports as per HPI, Denies no additional respiratory complaints and Reports dyspnea Gastrointestinal: Gastrointestinal: Reports as per HPI and Denies no additional gastrointestinal complaints Genitourinary: Genitourinary: Reports no additional male genitourinary complaints and Reports as per HPI Musculoskeletal: Musculoskeletal: Reports no additional musculoskeletal complaints and Reports as per HPI Integumentary/Breasts: Skin/Breast: Reports system reviewed and no additional complaints, except as docu Neurologic: Reports system reviewed and no additional complaints, except as documented and Reports as per HPI Psychiatric: Psychiatric: Reports no additional psychiatric complaints and Reports as per HPI Endocrine: Endocrine: Reports no additional endocrine complaints, Reports as per HPI and Denies palpitations Hematologic/Lymphatic: Hematologic/Lymphatic: Reports no additional hematologic/lymphatic complaints and Reports as per HPI Allergic/Immunologic: Allergic/Immunologic: Reports no additional allergic/immunologic complaints and Reports as per HPI [facility] Past Medical History Medical History Lumbar degenerative disc disease Compression fracture of L3 vertebra Hypertension Family History Family History Mother No problems noted. Father No problems noted. Surgical History Surgical History No pertinent past surgical history Social History Social History Household Members: Spouse Housing: House Do you presently have visiting nurse or other home services: No Alcohol intake: current Alcohol intake frequency: holidays/special occasions only Alcohol type: hard liquor Patient Tobacco Use Status: Never used Tobacco Smoked in Last 30 Days: No e-Cigarette/Vaping Use: Never Used Second Hand Smoke Exposure: No Use of substances other than those prescribed or required for medical reasons: No Currently Displaying Signs/Symptoms of Drug Intoxication Withdrawal: No Have you been hit, kicked, punched, or otherwise hurt by someone within the past year? If so, by whom?: No Do you feel safe in your current relationship?: Yes Is there a partner from a previous relationship who is making you feel unsafe now?: No Are you made to feel afraid or neglected: No Advance Directives: No Advance Directives Information Provided: Yes Do you have a plan to hurt others: No Plan Recently lost weight without trying: No Nutrition Risks: No Nutritional Risk service: No Current occupational status: unemployed Cognitive needs: No Hearing needs: No Vision needs: Yes (glasses) Meds Allergies Allergy/AdvReac Type Severity Reaction Status Date / Time No Known Allergies Allergy Verified 06/21/24 08:19 Active Medications: Current Medications Acetaminophen (Acetaminophen 325 Mg Tablet) 650 mg PO Q6H PRN PRN Reason: Pain, Mild 1-3,fever,headache Amlodipine Besylate (Amlodipine Besylate 5 Mg Tablet) 5 mg PO DAILY [facility]HI; Protocol Calcium Carbonate (Calcium Carbonate 750 Mg Tab.Chew) 750 mg PO Q4H PRN PRN Reason: Heartburn Furosemide (Furosemide 40 Mg/4 Ml Vial) 60 mg IVPUSH BID@0900,1800 [facility]; Protocol Heparin Sodium (Porcine) (Heparin Sodium,Porcine 5,000 Unit/Ml Vial) 5,000 unit SUBCUT Q12H [facility] Last Admin: 06/22/24 05:51 Dose: 5,000 unit Magnesium Hydroxide (Milk Of Magnesia 30 Ml Oral.Susp) 30 ml PO DAILY PRN PRN Reason: Constipation Melatonin (Melatonin 3 Mg Tablet) 6 mg PO BEDTIME PRN PRN Reason: Insomnia Nitroglycerin (Nitroglycerin 0.4 Mg Tab.Subl) 0.4 mg SUBLINGUAL Q5MX3 PRN PRN Reason: hypertension Last Admin: 06/21/24 14:38 Dose: 0.4 mg Ondansetron HCl (Ondansetron Hcl 4 Mg/2 Ml Vial) 4 mg IVPUSH Q8H PRN PRN Reason: Nausea and Vomiting Sodium Chloride (0.9 % Sodium Chloride Flush 3 Ml Syringe) 3 ml IVFLUSH QSHIFT KHUSHI Last Admin: 06/21/24 20:25 Dose: 3 ml Physical Exam 2 Vital Signs: Vital Signs: Last Vital Signs Temp 97.5 F 06/22/24 08:00 Pulse 81 06/22/24 08:00 Resp 15 06/22/24 08:00 BP 132/90 H 06/22/24 08:00 Pulse Ox 96 06/22/24 08:00 O2 Del Method Room Air 06/22/24 08:00 BMI result Body Mass Index 27.0 Const: General: comfortable and no acute distress O rientation/consciousness: patient oriented x3 HEENT: Other: Unremarkable Head: Yes normal to inspection Neck: Neck: Yes normal visual inspection Chest: Chest palpation & inspection: normal inspection of the chest Resp: Other: minimal crackles at bases. Cardio: Palpation: normal PMI Heart sounds: S1 normal heart sound present, S2 normal heart sound present, no gallops, no murmurs and no rubs GI: Palpation (GI): Soft to palpation Back/Spine/Pelvis: Other: unremarkable Skin: General skin exam: no rashes or lesions noted Neuro: General: patient oriented x3 Extrem: General: Yes normal to inspection Psych: Mental Status: mental status grossly normal Objective Labs and Meds 06/22/24 06:08 06/22/24 06:08 Lab results: Laboratory Results - last 24 hr 06/21/24 06/21/24 06/21/24 08:30 10:07 11:32 WBC RBC Hgb Hct MCV MCH MCHC RDW Plt Count MPV Absolute Nucleated RBC Nucleated RBC % (auto) Sodium Potassium Chloride Carbon Dioxide Anion Gap BUN Creatinine Estim Creat Clear Calc Estimated GFR Random Glucose Estimat Average Glucose Hemoglobin A1c % Lactic Acid 1.7 Calcium Troponin I High Sens 21.2 B-Natriuretic Peptide TSH Influenza Type A (PCR) NEGATIVE Influenza Type B (PCR) NEGATIVE RSV RNA Qual (PCR) NEGATIVE SARS-CoV-2 RNA (RT-PCR) NEGATIVE 06/22/24 06:08 WBC 7.0 RBC 6.24 H Hgb 17.8 Hct 53.6 H MCV 85.9 MCH 28.5 MCHC 33.2 RDW 13.2 Plt Count 249 MPV 10.1 Absolute Nucleated RBC 0.000 Nucleated RBC % (auto) 0.0 Sodium 138 Potassium 4.1 Chloride 104 Carbon Dioxide 26 Anion Gap 12 BUN 22 H Creatinine 1.21 Estim Creat Clear Calc 55.3 Estimated GFR 60 Random Glucose 138 H Estimat Average Glucose 143 Hemoglobin A1c % 6.6 H Lactic Acid Calcium 9.0 Troponin I High Sens B-Natriuretic Peptide 2189 H TSH 2.37 Influenza Type A (PCR) Influenza Type B (PCR) RSV RNA Qual (PCR) SARS-CoV-2 RNA (RT-PCR) ECG Interpretation: EKG with sinus tachycardia at 01:06/Min; possible left atrial enlargement; LVH; lateral T inversions. Assessment and Plan (1) New onset of congestive heart failure: Status: Acute CT chest with reported interstitial edema/bilateral effusions. Mild coronary atherosclerosis. Elevated cardiac BNP at 2189. High sensitivity troponins are within range. Clinically, he does not appear overtly volume overloaded at this time. On IV diuretics. We will review echocardiogram. We will need to start GDMT after reviewing cardiac function. (2) Hypertensive emergency: Status: Acute Per documentation, blood pressure was as much as 183/127 mm upon arrival. That could have contributed to congestive heart failure. Currently, 132/90 mm Hg. Home med listed as valsartan 320 mg daily. Currently he is on amlodipine 10 mg daily. We will follow up. Procedures Date of Service Date of Service: 06/22/24
--- NOTE | 2024-06-22 10:16 | MHC.CM.PN ---
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 PT VERIFIES PCP AND HIS BEEN EDUCATED ON AND COMPLETED A HCP NAMING HIS [facility] PALACIOS [phone], PT PROVIDED W/EDUCTAIONAL HANDOUT AND ORIGINAL HCP, COPY UPLOADED TO [facility] AND PLACED IN CHART.
--- NOTE | 2024-06-22 11:12 | HO.PM.IMPN ---
Subjective Subjective Date of Service: 06/22/24 Review of Systems Follow up CHF feeling better today no sob Physical Exam Vital Signs: Vital Signs: Last Vital Signs Temp 97.5 F 06/22/24 08:00 Pulse 81 06/22/24 08:00 Resp 15 06/22/24 08:00 BP 132/90 H 06/22/24 08:00 Pulse Ox 96 06/22/24 08:00 O2 Del Method Room Air 06/22/24 08:00 BMI result Body Mass Index 27.0 Appearing in no acute distress lung sounds rales heart regular rate rhythm, clear S1, S2 positive bowel sounds, abdomen is soft, nontender neuro patient is alert x3, no focal deficits Objective Data Active Medications Acetaminophen (Acetaminophen 325 Mg Tablet) 650 mg PO Q6H PRN PRN Reason: Pain, Mild 1-3,fever,headache Amlodipine Besylate (Amlodipine Besylate 5 Mg Tablet) 5 mg PO DAILY [facility]; Protocol Last Admin: 06/22/24 09:11 Dose: 5 mg Documented By: KLARISSA Calcium Carbonate (Calcium Carbonate 750 Mg Tab.Chew) 750 mg PO Q4H PRN PRN Reason: Heartburn Furosemide (Furosemide 40 Mg/4 Ml Vial) 60 mg IVPUSH BID@0900,1800 [facility]; Protocol Last Admin: 06/22/24 09:11 Dose: 60 mg Documented By: KLARISSA Heparin Sodium (Porcine) (Heparin Sodium,Porcine 5,000 Unit/Ml Vial) 5,000 unit SUBCUT Q12H [facility] Last Admin: 06/22/24 05:51 Dose: 5,000 unit Documented By: GRIS Magnesium Hydroxide (Milk Of Magnesia 30 Ml Oral.Susp) 30 ml PO DAILY PRN PRN Reason: Constipation Melatonin (Melatonin 3 Mg Tablet) 6 mg PO BEDTIME PRN PRN Reason: Insomnia Nitroglycerin (Nitroglycerin 0.4 Mg Tab.Subl) 0.4 mg SUBLINGUAL Q5MX3 PRN PRN Reason: hypertension Last Admin: 06/21/24 14:38 Dose: 0.4 mg Documented By: CLIFFORD Ondansetron HCl (Ondansetron Hcl 4 Mg/2 Ml Vial) 4 mg IVPUSH Q8H PRN PRN Reason: Nausea and Vomiting Sodium Chloride (0.9 % Sodium Chloride Flush 3 Ml Syringe) 3 ml IVFLUSH QSHIFT [facility] Last Admin: 06/22/24 09:12 Dose: 3 ml Documented By: KLARISSA Labs 06/22/24 06:08 06/22/24 06:08 Labs: Laboratory Results - last 24 hr 06/22/24 06:08 MCV 85.9 MCH 28.5 MCHC 33.2 RDW 13.2 Plt Count 249 MPV 10.1 Absolute Nucleated RBC 0.000 Nucleated RBC % (auto) 0.0 Anion Gap 12 Estim Creat Clear Calc 55.3 Estimated GFR 60 Random Glucose 138 H Estimat Average Glucose 143 Hemoglobin A1c % 6.6 H Calcium 9.0 B-Natriuretic Peptide 2189 H TSH 2.37 Assessment and Plan (1) New onset of congestive heart failure: Status: Acute Plan 68 year old man admitted with new onset heart failure and hypertensive urgency CHF, unspecified New onset BNP 2188 Possibly secondary to uncontrolled elevated blood pressure IV lasix 60 mg BID cardiology consultation> continue diuresis, follow echo, GDMT after reviewing cardiac function Echocardiogram pending -4.3 Liters daily weights HTN urgency. Resolved treated with nitro drip in the ED BP better follow closely Amlodipine 5 mg daily Transaminitis Mild Likely secondary to volume overload DVT prophylaxis with heparin Full code Quality Stroke Does the patient have a stroke diagnosis?: No VTE Prior VTE?: No VTE Risk Level:: Medical - moderate - high VTE Device Contraindication: Treatment Not Indicated VTE Drug Contraindication: N/A - Med Ordered
[2024-06-23 03:52] VITALS: BP 154/95; PULSE 81; RESP 18; TEMP 36.2; O2SAT 97
[2024-06-23] MEDS: Heparin Sodium,Porcine 5,000 UNIT/ML VIAL 5000 UNIT SUBCUT (05:06)
[2024-06-23 07:12] VITALS: BP 153/95; PULSE 90; RESP 15; TEMP 36.9; O2SAT 97
[2024-06-23 07:23] LABS: Anion Gap 13 (12-20); Blood Urea Nitrogen 27 mg/dL (9-16); Calcium 9.4 mg/dL (8.4-10.2); Carbon Dioxide 32 mmol/L (22-29); Chloride 99 mmol/L (96-108); Creatinine Clr Calc Pharmacy 45.5; Estimated Glomerular Filt Rate 48; Glucose Random 133 mg/dL (60-115); Potassium 4.2 mmol/L (3.3-5.1); Sodium 140 mmol/L (135-145)
[2024-06-23 07:33] LABS: B Type Natriuretic Peptide 675 pg/mL (<100)
--- NOTE | 2024-06-23 08:06 | P.PNIM_ITS ---
Subjective Subjective Date of Service: 06/23/24 Physical Exam 2 Vital Signs: Vital Signs: Last Vital Signs Temp 98.4 F 06/23/24 07:12 Pulse 90 06/23/24 07:12 Resp 15 06/23/24 07:12 BP 153/95 H 06/23/24 07:12 Pulse Ox 97 06/23/24 07:12 O2 Del Method Room Air 06/23/24 07:12 BMI result Body Mass Index 27.0 Objective Data Active Medications Acetaminophen (Acetaminophen 325 Mg Tablet) 650 mg PO Q6H PRN PRN Reason: Pain, Mild 1-3,fever,headache Amlodipine Besylate (Amlodipine Besylate 5 Mg Tablet) 5 mg PO DAILY [facility]; Protocol Last Admin: 06/22/24 09:11 Dose: 5 mg Documented By: KLARISSA Calcium Carbonate (Calcium Carbonate 750 Mg Tab.Chew) 750 mg PO Q4H PRN PRN Reason: Heartburn Furosemide (Furosemide 40 Mg/4 Ml Vial) 60 mg IVPUSH BID@0900,1800 [facility]; Protocol Last Admin: 06/22/24 17:54 Dose: 60 mg Documented By: KLARISSA Heparin Sodium (Porcine) (Heparin Sodium,Porcine 5,000 Unit/Ml Vial) 5,000 unit SUBCUT Q12H [facility] Last Admin: 06/23/24 05:06 Dose: 5,000 unit Documented By: BENNY Magnesium Hydroxide (Milk Of Magnesia 30 Ml Oral.Susp) 30 ml PO DAILY PRN PRN Reason: Constipation Melatonin (Melatonin 3 Mg Tablet) 6 mg PO BEDTIME PRN PRN Reason: Insomnia Nitroglycerin (Nitroglycerin 0.4 Mg Tab.Subl) 0.4 mg SUBLINGUAL Q5MX3 PRN PRN Reason: hypertension Last Admin: 06/21/24 14:38 Dose: 0.4 mg Documented By: CLIFFORD Ondansetron HCl (Ondansetron Hcl 4 Mg/2 Ml Vial) 4 mg IVPUSH Q8H PRN PRN Reason: Nausea and Vomiting Sodium Chloride (0.9 % Sodium Chloride Flush 3 Ml Syringe) 3 ml IVFLUSH QSHIFT [facility] Last Admin: 06/23/24 00:00 Dose: Not Given Documented By: BENNY Non-Admin Reason: Previously Administered Labs 06/22/24 06:08 06/23/24 06:52 Labs: Laboratory Results - last 24 hr 06/23/24 06:52 Anion Gap 13 Estim Creat Clear Calc 45.5 Estimated GFR 48 Random Glucose 133 H Calcium 9.4 B-Natriuretic Peptide 675 H Microbiology Microbiology Results: Microbiology 06/21/24 10:07 Blood Culture - Preliminary Blood - Venous No growth after 24 hours. 06/21/24 10:07 Blood Culture - Preliminary Blood - Venous No growth after 24 hours. Assessment and Plan Plan 68 year old man admitted with new onset heart failure and hypertensive urgency CHF, unspecified New onset BNP 2188 Possibly secondary to uncontrolled elevated blood pressure IV lasix 60 mg BID cardiology consultation> continue diuresis, follow echo, GDMT after reviewing cardiac function Echocardiogram pending -4.3 Liters daily weights HTN urgency. Resolved treated with nitro drip in the ED BP better follow closely Amlodipine 5 mg daily Transaminitis Mild Likely secondary to volume overload DVT prophylaxis with heparin Full code Quality Stroke Does the patient have a stroke diagnosis?: No VTE Prior VTE?: No VTE Risk Level:: Medical - moderate - high VTE Device Contraindication: Treatment Not Indicated VTE Drug Contraindication: N/A - Med Ordered
[2024-06-23] MEDS: amLODIPine Besylate 5 MG TABLET PO (08:47)
[2024-06-23] MEDS: 0.9 % Sodium Chloride Flush 3 ML SYRINGE IVFLUSH (08:50)
--- NOTE | 2024-06-23 09:13 | PM.PNCARD ---
Subjective Subjective Date of Service: 06/23/24 Interval history: Patient states that he feels okay. Shortness of breath is significantly improved. No other complaints like chest pain. Review of Systems Review of Systems Yes all other systems are reviewed and are negative Constitutional: Reports as per HPI and Reports no additional constitutional complaints Eyes: Reports as per HPI and Denies no additional eye complaints Denies system reviewed and no additional complaints, except as documented and Reports as per HPI Cardiovascular: Reports as per HPI, Reports no additional cardiovascular complaints, Denies acrocyanosis, Denies cool extremities, Denies chest pain, Denies leg edema, Denies lightheadedness, Denies palpitations and Denies dyspnea Respiratory: Reports as per HPI, Denies no additional respiratory complaints and Denies dyspnea Gastrointestinal: Reports as per HPI and Denies no additional gastrointestinal complaints Genitourinary: Reports no additional male genitourinary complaints and Reports as per HPI Musculoskeletal: Reports no additional musculoskeletal complaints and Reports as per HPI Skin/Breast: Reports system reviewed and no additional complaints, except as docu Reports system reviewed and no additional complaints, except as documented and Reports as per HPI Psychiatric: Reports no additional psychiatric complaints and Reports as per HPI Endocrine: Reports no additional endocrine complaints, Reports as per HPI and Denies palpitations Hematologic/Lymphatic: Reports no additional hematologic/lymphatic complaints and Reports as per HPI Allergic/Immunologic: Reports no additional allergic/immunologic complaints and Reports as per HPI Physical Exam Vital Signs: Last Vital Signs Temp 98.4 F 06/23/24 07:12 Pulse 90 06/23/24 07:12 Resp 15 06/23/24 07:12 BP 153/95 H 06/23/24 07:12 Pulse Ox 97 06/23/24 07:12 O2 Del Method Room Air 06/23/24 07:12 BMI result Body Mass Index 27.0 Const General: comfortable and no acute distress Orientation/consciousness: patient oriented x3 HEENT Other: Unremarkable Head: Yes normal to inspection Neck Neck: Yes normal visual inspection Chest Chest palpation & inspection: normal inspection of the chest Resp Auscultation: clear to auscultation bilaterally Cardio Palpation: normal PMI Heart sounds: S1 normal heart sound present, S2 normal heart sound present, no gallops, no murmurs and no rubs GI Palpation (GI): Soft to palpation Back/Spine/Pelvis Other: unremarkable Skin General skin exam: no rashes or lesions noted Neuro General: patient oriented x3 Extrem General: Yes normal to inspection Psych Mental Status: mental status grossly normal Objective Labs and Meds 06/22/24 06:08 06/23/24 06:52 Lab results: Laboratory Results - last 24 hr 06/23/24 06:52 Sodium 140 Potassium 4.2 Chloride 99 Carbon Dioxide 32 H Anion Gap 13 BUN 27 H Creatinine 1.47 H Estim Creat Clear Calc 45.5 Estimated GFR 48 Random Glucose 133 H Calcium 9.4 B-Natriuretic Peptide 675 H Progress Note: A&P Assessment and plan (1) Acute combined systolic and diastolic congestive heart failure: Status: Acute (2) Hypertensive emergency: Status: Acute Plan In the echocardiogram, LVEF is 28%. Moderate diastolic dysfunction. In the labs, creatinine has gone up slightly to 1.47. Can stop IV diuretics. Switch to p.o. diuretics starting tomorrow or so. Start carvedilol 6.25 mg b.i.d.. We can start Entresto as an outpatient as longest with the kidney function remains stable. Labs should be done in 3-4 days. We will arrange follow-up. Time Spent With Patient Time: Total time managing care of this patient today ____ minutes. Progress Note: Quality Stroke Does the patient have a stroke diagnosis?: No Procedures Date of Service Date of Service: 06/23/24
--- NOTE | 2024-06-23 09:37 | PM.DS ---
DS: Providers Provider Date of Service: 06/23/24 Date of admission: 06/21/24 16:32 Date of discharge: 06/23/24 Primary care physician: Cheli Joshua MD Admitting clinician: Misty Vaughn Attending physician on admission: Yemi Merlos Consults: 06/21/24 16:38 Consult to Cardiology Routine Consulting Provider: [facility] Reason for consultation: CHF, new onset Attending physician on discharge: Lucius Rocha Discharging clinician: Naa Rodriguez DS: Diagnosis Discharge Diagnosis (1) Acute combined systolic and diastolic congestive heart failure: Status: Acute (2) Hypertensive emergency: Status: Acute DS: Summary Hospital Course Hospital Course: HPI on admission by Misty Vaughn 06/21: Chief Complaint: Shortness of breath 68-year-old man presented with complaints of worsening shortness of breath over the last week and lower extremity edema. He reports a history of hypertension and reports that he checks his blood pressure home and it is usually always high with systolic blood pressures over 150, 160. He reports that he takes valsartan at home and follows closely with his primary care provider. He denied any hospitalizations in over 30 years. He denied any symptoms of headache, visual changes, chest pain, shortness of breath, recent illness. He did report over the last week he has noticed with ambulation he was becoming more shortness of breath even worse with walking up stairs. He also reported lower extremity swelling. He denied any history of congestive heart failure or cardiac conditions. In the ER, BNP noted to be elevated at 1989, normal troponin, creatinine 1.38, appears to be chronic, chest CT showing interstitial edema and bilateral effusions. Blood pressures elevated as high as 183/127, started on IV nitro drip, given nitro paste and hydralazine in the ER. Blood pressure came down to systolic 112. Patient is asymptomatic. Plan will be to admit patient for further management and treatment of acute congestive heart failure. Hospital course: Patient admitted to [facility] for new onset congestive heart failure. He was 40 mg IV Lasix twice daily but this was increased to 60 mg twice daily due to ongoing symptoms. Unfortunately on morning of discharge, creatinine had increased so furosemide was held. Creatinine 1.21 to 1.47. Cardiology did follow patient and echocardiogram was performed revealing reduced systolic function with EF 28% as well as grade 2 diastolic dysfunction. No obvious valvular pathology. Mild dilatation of the ascending aorta at 3.8 cm. Cardiology recommends starting Lasix 20 mg daily starting tomorrow morning as well as starting carvedilol 6.25 mg b.i.d. tomorrow morning. He was treated with valsartan and amlodipine while in the hospital but these are recommended to be discontinued. He should follow-up in the cardiology office in 1 week for consideration of Entresto. He is also recommended to repeat BMP on Friday which is ordered. He is counseled on diet and fluid restrictions as well as daily weights. Following diuresis as well as antihypertensive therapy, blood pressure did improve significantly. Vital signs otherwise remained stable. There was never any documented hypoxia. HFrEF Echo shows reduced LV systolic function with EF 28% as well as grade 2 diastolic dysfunction. No valvular pathology BNP 1989, 2189, 675 Possibly secondary to uncontrolled elevated blood pressure Initially diuresed with IV Lasix with slight increase in creatinine to 1.47. Initiate 20mg PO lasix am Follow-up with cardiology outpatient. Check BMP in 3 days Add carvedilol 6.25 mg b.i.d.. We will consider Entresto at Cardiology follow-up -4.1L daily weights, low-sodium diet, fluid restrictions HTN urgency. Resolved treated with nitro drip in the ED Treated with valsartan and amlodipine during admission. Changed to carvedilol 6.25 mg b.i.d. as well as furosemide on discharge per Cardiology acute Transaminitis Mild Likely secondary to volume overload Status at Discharge Functional status at discharge: independent ambulation Overall status at discharge: patient is progressing back to baseline Time Attestation Discharge Coordination Time (in mins): 40 Quality: Safe Use of Opioids Does Pt have an Active Cancer Diagnosis on the Problem List?: No Quality: Stroke Does the patient have a stroke diagnosis?: No Physical Exam Vital Signs: Vital Signs: Last Vital Signs Temp 98.4 F 06/23/24 07:12 Pulse 90 06/23/24 07:12 Resp 15 06/23/24 07:12 BP 153/95 H 06/23/24 07:12 Pulse Ox 97 06/23/24 07:12 O2 Del Method Room Air 06/23/24 07:12 BMI result Body Mass Index 27.0 Constitutional - Awake and Alert, No apparent distress Eyes - PERRLA, EOMI Cardiovascular - S1S2, RRR, No edema, no JVD Respiratory - Normal lung expansion, Normal respiratory effort, No respiratory distress, CTA bilaterally Extremities - no calf tenderness bilaterally, no swelling Skin - Warm/Dry Neurological - Alert & oriented x3 Psychological - Appropriate affect DS: Data Data Completed and Pending Labs on day of discharge: Laboratory Results - last 24 hr 06/23/24 06:52 Sodium 140 Potassium 4.2 Chloride 99 Carbon Dioxide 32 H Anion Gap 13 BUN 27 H Creatinine 1.47 H Estim Creat Clear Calc 45.5 Estimated GFR 48 Random Glucose 133 H Calcium 9.4 B-Natriuretic Peptide 675 H Preliminary micro results at discharge 06/21/24 10:07 Blood Culture - Preliminary Blood - Venous No growth after 24 hours. 06/21/24 10:07 Blood Culture - Preliminary Blood - Venous No growth after 24 hours. Discharge Plan Discharge Anticipated Discharge Date/Time: 06/23/24 09:36 Patient Disposition: Home, Self-Care Discharge Diagnosis: New onset CHF, hypertensive urgency Referrals: Cheli Dempsey MD [Primary Care Provider] - 1 Week Jero Dietz MD [Physician] - 1 Week (New onset CHF) Discharge Medications: New furosemide 20 mg tablet 20 mg PO DAILY Qty: 90 0RF carvedilol 6.25 mg tablet 6.25 mg PO BID Qty: 180 0RF Rx Instructions: must administer with a meal/food Continued (DME) blood pressure monitor Kit See Rx Instructions .Route Qty: 1 0RF Rx Instructions: As directed lidocaine 5 % adhesive patch,medicated 1 patch topical DAILY 30 Days Qty: 30 1RF Discontinued valsartan 320 mg tablet 320 mg PO DAILY 90 Days Qty: 90 1RF Discharge Orders: Discharge Order (Routine); Ordered 06/23/24 Ordered By: Naa Rodriguez Diet: Low salt diet Activity on Discharge: As tolerated Stand Alone Forms: Patient Portal Discharge page Print Language: Martiniquais Care Plan Goals: Continue diuretics to prevent future CHF exacerbation Dietary compliance Blood pressure management Health Concerns: New onset congestive heart failure Hypertension/hypertensive urgency Plan of Treatment: Congestive heart failure/Hypertension START Lasix 20 mg daily to prevent volume overload tomorrow morning Low-sodium diet advised Fluid restrictions to 1.5 L Daily weights-contact PCP/Cardiology for any weight gain >3 lb in 1 day or >5 lb in 3 days Monitor for any shortness of breath on exertion, difficulty breathing when lying flat, swelling/edema in the lower extremities STOP valsartan and amlodipine (started while in the hospital. START carvedilol 6.25 mg twice daily tonight Monitor blood pressures- goal 140/90 or below Follow-up with PCP/Cardiology Assessment: See above. See discharge summary Patient Instructions: Heart Failure (DC), Low-Sodium Diet (DC) Discharge Date/Time: 06/23/24 12:31
[2024-06-23 11:28] VITALS: BP 151/97; PULSE 91; RESP 15; TEMP 36.9; O2SAT 95
--- NOTE | 2024-06-23 12:35 | MHC.CM.PN ---
pt medically cleared for dc home self-care, pt's at bedside and will transport
== END 2024-06-23 12:31 | disposition home or self-care (01) | DRG 291 ==
LOC: HO.ED 13:32 → HO.EDOVER 16:48 → HO.IMC 16:51
PROVIDERS: Physician Assistant; Admitting Provider Nurse Practitioner Acute Care; Emergency Provider Emergency Medicine; PCP Internal Medicine; Visit Provider Physician Assistant
DX: I11.0 Hypertensive heart disease with heart failure (principal); I50.41 Acute combined systolic (congestive) and diastolic (congestive) heart failure; I16.1 Hypertensive emergency; Z20.822 Contact with and (suspected) exposure to COVID-19
CPT/HCPCS: 0241U; 36415; 71045; 71250; 74177; 80048; 80053; 83036; 83605; 83735; 83880; 84443; 84484; 85025; 85027; 87040; 93005; 93306; 99285; J0360; J1644; J1938; Q9957; Q9967

== ENCOUNTER → 2024-06-21 09:08 | Outpatient (BNV) | payer OTHER, SELFPAY | PROVIDERS: Emergency Provider Emergency Medicine; PCP Internal Medicine; Visit Provider Radiology Vascular & Interventional Radiology | DX: R10.9 Unspecified abdominal pain (principal); R14.0 Abdominal distension (gaseous); J98.4 Other disorders of lung; R06.02 Shortness of breath | CPT/HCPCS: 71045; 71250; 74177 ==

== ENCOUNTER 2024-06-21 16:32 | Outpatient (BNV) | payer OTHER, SELFPAY | END 2024-06-22 07:00 | PROVIDERS: Admitting Provider Nurse Practitioner Acute Care; Emergency Provider Emergency Medicine; PCP Internal Medicine; Visit Provider Internal Medicine | DX: I50.30 Unspecified diastolic (congestive) heart failure (principal); I35.8 Other nonrheumatic aortic valve disorders | CPT/HCPCS: 93306 ==

== ENCOUNTER → 2024-06-21 16:32 | Outpatient (BNV) | payer OTHER, SELFPAY | PROVIDERS: Admitting Provider Nurse Practitioner Acute Care; Emergency Provider Emergency Medicine; PCP Internal Medicine; Visit Provider Internal Medicine | DX: I50.9 Heart failure, unspecified (principal); I16.1 Hypertensive emergency | CPT/HCPCS: 93010; 99223 ==

== ENCOUNTER → 2024-06-21 16:32 | Outpatient (BNV) | payer OTHER, SELFPAY | PROVIDERS: Admitting Provider Nurse Practitioner Acute Care; Emergency Provider Emergency Medicine; PCP Internal Medicine; Visit Provider Nurse Practitioner Acute Care | DX: I50.41 Acute combined systolic (congestive) and diastolic (congestive) heart failure (principal); I16.1 Hypertensive emergency; I10 Essential (primary) hypertension; I50.9 Heart failure, unspecified | CPT/HCPCS: 99223; 99232; 99239 ==

== ENCOUNTER 2024-06-28 14:08 | Outpatient (AMB) | payer OTHER, SELFPAY ==
--- NOTE | 2024-06-28 14:09 | A.OFFVIS_ITS ---
Vital Signs 06/28/24 14:10 Height 5 ft 7 in Weight 172 lb BMI 26.9 BP 140/90 H Blood Pressure Location Rt brachial Position Sitting Pulse 88 Pulse Source Pulse Oximeter Pulse Oximetry (%) 94 Oxygen Delivery Method Room Air Intake Visit Reasons: Colonoscopy screening Intake Note: ESTABLISHED PATIENT for repeat colo screening. Last > 10 Years ago. Chief Complaint; Pt denies any GI sx or concerns. Pt does report recent admission for cardiovascular concern (CHF)? Pt saw Dr. Dietz. 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 male with past medical history of hypertension, new onset of Congestive heart failure, nocturia, hemorrhoids is here today for pre colonoscopy screening.? Patient was sent to us by his PCP.? Last colonoscopy over 10 years ago in [place].? Patient was admitted about a week ago for diastolic and systolic heart failure. Adjustment to his medication and patient has appointment with Cardiology on August 31. Patient denies any gastrointestinal symptoms in the past or at present.? Denies any personal or family history of gastrointestinal disease, colon polyps, or CRC.? Denies history of difficulty with sedation or anesthesia in the past.? Negative for history of sleep apnea.? Denies any history of renal, pulmonary, or hepatic disease.?? No history of infectious? diseases like hepatitis A, B, C, HIV or tuberculosis.? Patient is not on any anticoagulation REPLACED BY [facility] Medical History Lumbar degenerative disc disease Compression fracture of L3 vertebra Hypertension Surgical History No pertinent past surgical history Family History Mother No problems noted. Father No problems noted. Social History Household Members: Spouse Housing: House Do you presently have visiting nurse or other home services: No Alcohol intake: current Alcohol intake frequency: holidays/special occasions only Alcohol type: hard liquor Patient Tobacco Use Status: Never used Tobacco e-Cigarette/Vaping Use: Never Used Second Hand Smoke Exposure: No service: No Current occupational status: unemployed Cognitive needs: No Hearing needs: No Vision needs: Yes (glasses) Review of Systems Const Denies weight gain and Denies weight loss ENT Reports no additional complaints, Denies dysphagia and Denies odynophagia Card Reports no additional complaints Resp Reports no additional complaints GI Denies abdominal pain, Denies belching, Denies melena, Denies bloating, Denies change in bowel habits, Denies dysphagia, Denies excessive flatus, Denies dyspepsia, Denies heartburn, Denies diarrhea, Denies loose stools, Denies nausea, Denies odynophagia and Denies vomiting Reports no additional complaints Musc Reports no additional complaints Neuro Reports no additional complaints Psych Reports no additional complaints Endo Reports no additional complaints Physical Exam Vital Signs: Last Vital Signs Pulse 88 06/28/24 14:10 BP 140/90 H 06/28/24 14:10 Pulse Ox 94 06/28/24 14:10 Oxygen Delivery Method Room Air 06/28/24 14:10 BMI result Body Mass Index 26.9 Const General: healthy appearing, no acute distress and well developed Nutritional Appearance: well nourished Orientation/consciousness: patient oriented x3 Resp Effort & Inspection: normal respiratory effort, able to speak in complete sentences, no tracheal deviation and symmetric chest movement Auscultation: clear to auscultation bilaterally Cardio Rate: regular rate GI Inspection: Yes normal to inspection and No distended Palpation (GI): Soft to palpation, not firm, nontender and No hepatosplenomegaly present Auscultation: normal bowel sounds General: Yes no CVA tenderness Back/Spine/Pelvis Back: no CVA tenderness Skin General skin exam: elasticity normal, turgor normal and dry skin Neuro General: patient oriented x3 Psych Appearance: grossly normal Mental Status: mental status grossly normal Assessment & Plan Assessment & Plan (1) Screen for colon cancer: Code(s): Z12.11 - Encounter for screening for malignant neoplasm of colon Plan Patient denies any GI, cardiac or respiratory symptoms.? Patient was admitted about a week ago for shortness of breath and is found to be in heart failure. 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 Message sent to classification officer to add clearance to his appointment. Denies any issues with anesthesia in the past.? Denies any history of sleep apnea.? No history infectious diseases in the past or present.? Not on any anticoagulation therapy.? No family or personal history of colon cancer or polyps.? Patient denies melena, hematochezia, unintentional weight loss or ribbon like stools.? Discussed at length the pre- procedure,? prep, diet & medications as well as what to expect prior, during and after the procedure.?? Stressed the importance of good bowel prep.? Recommended the use of Vaseline or Calmoseptine OTC & baby wipes with bowel movements to promote comfort.? ?Patient verbalizes understanding and agrees to plan of care.? He was given the opportunity to ask questions and all questions answered.? We will see him after the procedure.? Medications: New 2 polyethylene glycol 3350 (Miralax) As directed by gastroenterology department at [facility] 238 grams PO ONCE 238 grams 0RF Z12.11 - Encounter for screening for malignant neoplasm of colon bisacodyl (Dulcolax (bisacodyl)) take 4 tabs at noon the day before your colonoscopy 20 mg (4 x 5 mg) PO ONCE 4 tabs 0RF 1 day Z12.11 - Encounter for screening for malignant neoplasm of colon Coding Level of Care Code New Pt Level 3 (61666) Diagnoses Screen for colon cancer Z12.11 Time Spent (min) 40 Comment 30 minutes spent with patient and additional 10 minutes spent reviewing his records
[2024-06-28 14:10] VITALS: BP 140/90; PULSE 88; O2SAT 94; BMI 26.9
== END 2024-06-28 16:31 | disposition home or self-care (01) ==
LOC: HO.HGI 14:09
PROVIDERS: PCP Internal Medicine; Visit Provider Nurse Practitioner Family
DX: Z01.818 Encounter for other preprocedural examination (principal); Z12.11 Encounter for screening for malignant neoplasm of colon
CPT/HCPCS: 99202

== ENCOUNTER → 2024-06-28 14:08 | Outpatient (BNVA) | payer OTHER, SELFPAY | PROVIDERS: PCP Internal Medicine; Visit Provider Nurse Practitioner Family ==

== ENCOUNTER 2024-07-05 10:29 | Outpatient (AMB) | payer OTHER, SELFPAY ==
--- NOTE | 2024-07-05 10:33 | MHC.PC.OV ---
Vital Signs 07/05/24 10:36 Height 5 ft 7 in Weight 172 lb 4 oz BMI 27.0 BP 130/90 H Blood Pressure Location Lt brachial Position Sitting Respiration 16 Pulse 85 Pulse Source Pulse Oximeter Temp 97.3 F Temp Source Temporal Artery Scan Pulse Oximetry (%) 95 Oxygen Delivery Method Room Air Intake Visit Reasons: COUNT INCLUDES THE [facility] 06/23 CHF Intake Note: Patient is here for hospital discharge and [facility] follow up. Patient was discharged from [facility] on 06/23/24. Digital Solutions Architect Required: No Engineering Systems Analyst: Not Required per policy Allergies No Known Allergies Allergy (Verified 07/05/24 10:58) Medication List - Last Reconciled 07/05/24 by LEROY Lewis bisacodyl (Dulcolax (bisacodyl)) 20 mg (4 x 5 mg) PO ONCE 1 day blood pressure monitor As directed carvedilol 6.25 mg PO BID furosemide 20 mg PO DAILY lidocaine 5% 1 patch topical DAILY 30 days polyethylene glycol 3350 (Miralax) 238 grams PO ONCE Tobacco use date assessed: 05/13/24 Fall risk assessment: No Falls in past year Last assessed Fall Risk: 07/05/24 Dental Screening Dental Screen Date: 05/13/24 HPI COUNT INCLUDES THE [facility] 06/23 CHF HPI Details The patient is a 68-year-old male presenting with heart failure. He was recently hospitalized for heart failure and initiated on furosemide to manage fluid retention. The patient's hypertension has a longstanding history, with consistent elevation in blood pressure unrelated to family history. The focus has been on lifestyle adjustments such as reduced sodium intake and maintaining regular physical activity. However, despite these efforts, high blood pressure remains a persistent issue He denies experiencing any exacerbations of heart failure symptoms like shortness of breath, chest discomfort, or lower extremity swelling. The patient has been vigilant about his fluid status and weight management. Concerns about renal function were addressed by modifying his furosemide dosage to 20 mg daily due to worsening creatinine levels, in the hospital, while ensuring optimal blood pressure control to prevent further renal impairment. It is essential to continue regular monitoring to evaluate his cardiac and renal status. Hospital course: Patient admitted [facility] for new onset congestive heart failure. He was 40 mg IV Lasix twice daily but this was increased to 60 mg twice daily due to ongoing symptoms. Unfortunately on morning of discharge, creatinine had increased so furosemide was held. Creatinine 1.21 to 1.47. Cardiology did follow patient and echocardiogram was performed revealing reduced systolic function with EF 28% as well as grade 2 diastolic dysfunction. No obvious valvular pathology. Mild dilatation of the ascending aorta at 3.8 cm. Cardiology recommends starting Lasix 20 mg daily starting tomorrow morning as well as starting carvedilol 6.25 mg b.i.d. tomorrow morning. He was treated with valsartan and amlodipine while in the hospital but these are recommended to be discontinued. He should follow-up in the cardiology office in 1 week for consideration of Entresto. He is also recommended to repeat BMP on Friday which is ordered. He is counseled on diet and fluid restrictions as well as daily weights. Following diuresis as well as antihypertensive therapy, blood pressure did improve significantly. Vital signs otherwise remained stable. There was never any documented hypoxia. TCM TCM Information Date of Discharge 06/23/24 Discharged From [facility] Interactive Contact Date (Reference documentation from this date) 07/05/24 [facility] Medical History (Updated 07/11/24 @ 16:12 by LEROY Lewis) Hypertension Lumbar degenerative disc disease Compression fracture of L3 vertebra Surgical History No pertinent past surgical history Family History Mother No problems noted. Father No problems noted. Social History Household Members: Spouse Housing: House Do you presently have visiting nurse or other home services: No Alcohol intake: current Alcohol intake frequency: holidays/special occasions only Alcohol type: hard liquor Patient Tobacco Use Status: Never used Tobacco e-Cigarette/Vaping Use: Never Used Second Hand Smoke Exposure: No service: No Current occupational status: unemployed Cognitive needs: No Hearing needs: No Vision needs: Yes (glasses) Questionnaire PHQ-9 Over the last 2 weeks, how often have you been bothered by any of the following problems? 1. Little interest or pleasure in doing things: not at all 2. Feeling down, depressed, or hopeless: not at all 3. Trouble falling or staying asleep, or sleeping too much: not at all 4. Feeling tired or having little energy: not at all 5. Poor appetite or overeating: not at all 6. Feeling bad about yourself - or that you are a failure or have let yourself or your family down: not at all 7. Trouble concentrating on things, such as reading the newspaper or watching television: not at all 8. Moving or speaking so slowly that other people could have noticed. Or the opposite - being so fidgety or restless that you have been moving around a lot more than usual: not at all 9. Thoughts that you would be better off or of hurting yourself in some way: not at all Total score: 0 Depression Screening Interpretation: Negative Depression Screening Done: Yes Source: Developed by Drs. Bud Lee, Alba Jc, Yeyo Gonzalez and colleagues, with an educational luis miguel from [employer]. Thrive Questionnaire Date Thrive assessed: 05/13/24 URI-7 AMB Questionnaire URI-7 Date URI - 7 assessed: 05/13/24 Source: Developed by Drs. Bud Lee, Alba Jc, Yeyo Gonzalez and colleagues, with an educational luis miguel from [employer]. Review of Systems Const Denies headache(s) Eyes Denies loss of vision ENT Denies vertigo, Denies dizziness, Denies headache(s) and Denies sore throat Card Denies chest pain, Denies leg edema and Denies lightheadedness Resp Denies cough, Denies hemoptysis and Denies wheezing GI Denies abdominal pain, Denies melena, Denies constipation, Denies diarrhea and Denies vomiting Denies dysuria, Denies urinary frequency and Denies urinary urgency Neuro Denies Abnormal speech present, Denies vertigo, Denies dizziness, Denies headache(s) and Denies loss of vision Ayden/Lymph Denies easy bleeding and Denies easy bruising Aller/Immun Denies wheezing Physical exam (Primary Care) Vital Signs: Last Vital Signs Temp 97.3 F 07/05/24 10:36 BP 130/90 H 07/05/24 10:36 BMI result Body Mass Index 27.0 Tobacco/Smoking Status: Tobacco use Status Tobacco use date assessed 05/13/24 07/05/24 10:42 Patient Tobacco Use Status Never used Tobacco 07/05/24 10:42 e-Cigarette/Vaping Use Never Used 07/05/24 10:42 PHQ-9: PHQ-9 Score PHQ-9: Total score 0 07/05/24 11:11 Depression Screening Interpretation: Negative Thrive Assessment: Date of Thrive Assessment Date Thrive assessed 05/13/24 07/05/24 10:42 Const General: healthy appearing, no acute distress, alert and awake Nutritional Appearance: well nourished Orientation/consciousness: oriented to person, oriented to place and oriented to time HENMT Ears: TM's normal bilaterally General nose exam: Normal nasal mucous membranes and turbinates present Eyes Conjunctivae: conjunctivae normal Sclerae: sclerae normal Pupils: Equal, round and reactive pupils present Neck Neck: Yes no lymphadenopathy and Yes no JVD Thyroid: Thyroid normal Carotids: no bruits Resp Effort & Inspection: normal respiratory effort and not tachypneic Auscultation: no crackles, no rales, no rhonchi and no wheezes Cardio Rate: regular rate Rhythm: regular rhythm Heart sounds: no murmurs and normal S1 and S2 GI Palpation (GI): Soft to palpation, nontender, no hepatomegaly and no splenomegaly Auscultation: normal bowel sounds Skin General skin exam: no rashes or lesions noted and dry skin Neuro General: oriented to person, oriented to place and oriented to time Cranial nerves: Yes Equal, round and reactive pupils present Speech: No Abnormal speech present Gait exam (Neuro): Normal gait present Motor exam (neuro): no tremor noted Extrem Right upper extremity: full ROM Left upper extremity: full ROM Right lower extremity: full ROM; no edema Left lower extremity: full ROM; no edema Psych Mental Status: mental status grossly normal Speech and movement: Normal speech and movement present Affect: normal affect Attitude: cooperative Thought process: Normal thought process present Results Reviewed Results Reviewed: Laboratory Tests 07/05/24 11:34 Sodium 142 Potassium 4.8 Chloride 105 Carbon Dioxide 32 H Anion Gap 10 L BUN 25 H Creatinine 1.34 Estimated GFR 53 Random Glucose 93 Calcium 9.4 B-Natriuretic Peptide 1926 H Coding Level of Care Code TCM Mod MDM <= 14 Days Diagnoses Acute combined systolic and diastolic congestive heart failure I50.41 Hypertension, unspecified type I10 Hypertension type: unspecified Elevated serum creatinine R79.89 Time Spent (min) 39 Assessment & Plan Assessment & Plan (1) Acute combined systolic and diastolic congestive heart failure: Code(s): I50.41 - Acute combined systolic (congestive) and diastolic (congestive) heart failure Category: Medical Plan: Patient was in the hospital with complaints of progressive shortness of breath. Found to be in hypertension emergency and heart failure. Blood pressure was treated with IV medication then transitioned to p.o.. The patient was started on furosemide 40 mg then increased to 60 mg, creatinine level increased, so this was switched to furosemide 20 mg per cardiology recommendation. BMP a week after showed improvement in creatinine, however the patient BNP is elevated. He denies shortness of breath and has clear lungs bilaterally and no edema in legs. Diastolic continues to be elevated at 90. The patient was encouraged to remove salt from his diet, to weigh himself daily and to monitor blood pressure frequently. Patient has an upcoming appointment with Cardiology encouraged the patient to keep this appointment. Continue carvedilol 6.25 mg b.i.d. and furosemide 20 mg daily (2) Hypertension: Code(s): I10 - Essential (primary) hypertension Category: Medical Qualifiers: Hypertension type: unspecified Qualified Code(s): I10 - Essential (primary) hypertension Plan: Reinforced low-salt diet Continue carvedilol 6.25 mg b.i.d. and furosemide 20 mg daily (3) Elevated serum creatinine: Code(s): R79.89 - Other specified abnormal findings of blood chemistry Category: Medical Plan: Repeat creatinine improved with the decreasing of furosemide to 20 mg.
[2024-07-05 10:36] VITALS: BP 130/90; PULSE 85; RESP 16; TEMP 36.3; O2SAT 95; BMI 27.0
== END 2024-07-05 12:21 | disposition home or self-care (01) ==
LOC: HO.HMCH 10:30
PROVIDERS: PCP Internal Medicine
DX: I50.41 Acute combined systolic (congestive) and diastolic (congestive) heart failure (principal); I10 Essential (primary) hypertension; R79.89 Other specified abnormal findings of blood chemistry

== ENCOUNTER 2024-07-05 10:29 | Outpatient (REF) | payer OTHER, SELFPAY ==
[2024-07-05 12:12] LABS: Anion Gap 10 (12-20); Blood Urea Nitrogen 25 mg/dL (9-16); Calcium 9.4 mg/dL (8.4-10.2); Carbon Dioxide 32 mmol/L (22-29); Chloride 105 mmol/L (96-108); Estimated Glomerular Filt Rate 53; Glucose Random 93 mg/dL (60-115); Potassium 4.8 mmol/L (3.3-5.1); Sodium 142 mmol/L (135-145)
[2024-07-05 12:21] LABS: B Type Natriuretic Peptide 1926 pg/mL (<100)
== END 2024-07-05 10:30 | disposition home or self-care (01) ==
LOC: HO.LAB 10:29
PROVIDERS: PCP Internal Medicine; Visit Provider Internal Medicine
DX: I50.9 Heart failure, unspecified (principal); I10 Essential (primary) hypertension; R79.89 Other specified abnormal findings of blood chemistry
CPT/HCPCS: 36415; 80048; 83880

== ENCOUNTER 2024-07-19 09:03 | Outpatient (AMB) | payer OTHER, SELFPAY ==
--- NOTE | 2024-07-19 09:05 | MHC.OFFVIS ---
Intake Visit Reasons: Nocturia Intake Note: Pt presents to the office today as a new patient visit for Nocturia. Urology Meds:none PVR:0ml Utility Tractor Operator Required: Yes Utility Tractor Operator Services: Utility Tractor Operator Present Utility Tractor Operator Name: [phone] Allergies No Known Allergies Allergy (Verified 07/19/24 21:30) Medication List - Last Reconciled 07/19/24 by CARMEN Lovett- bisacodyl (Dulcolax (bisacodyl)) 20 mg (4 x 5 mg) PO ONCE 1 day blood pressure monitor As directed carvedilol 6.25 mg PO BID furosemide 20 mg PO DAILY lidocaine 5% 1 patch topical DAILY 30 days polyethylene glycol 3350 (Miralax) 238 grams PO ONCE HPI Comments Details: Abbe is a 68-year-old Albanian-speaking male patient of . He has a past medical history of hypertension, lumbar degenerative disc disease, and compression fracture of L3. He presents to the office today as a new patient for nocturia. In discussion with the patient today reports having followed up with his PCP in discussing ongoing episodes of nocturia. He reports he works overnight and typically goes to sleep around 8 in the morning and feels he is up every 2-3 hours urinating. In review of patient's chart it appears CT and PSA were ordered and performed. These results were reviewed and communicated with the patient today. PSA 05/25 1.2. Kidneys and ureters and bladder are within normal limits. He otherwise denies urinary urgency, urinary frequency, incontinence, hematuria, dysuria, foul smelling urine, changes to urinary stream, flank pain, fever, and or chills. In office urinalysis results reviewed with the patient today. PVR 0 mL. We did discussed potential causes of nocturia as well as further treatment options and risks and benefits of these treatment options. We discussed obtaining sleep study as patient does report a history of snoring and fatigue upon wakening. We also discussed lifestyle modifications to assist with nocturia. All questions were answered. He otherwise offers no other issues or concerns at this time. Plan The plan for the patient's nocturia involves conducting a sleep study to determine if sleep apnea is contributing. Meanwhile, reducing fluid intake before bedtime is advised to manage symptoms. The strategy considers the sleep study's results to inform further interventions, such as bladder medications if necessary. The patient was briefed about the plan's rationale, and he agreed to proceed. Patient was informed and verbally consented to the use of an ambient scribe for clinic note documentation during this visit. Discussion Notes I discussed with the patient the potential diagnosis of sleep apnea, which may be causing his nocturnal urinary frequency. To confirm this, I recommended a sleep study. Should sleep apnea be diagnosed, we discussed the management involving the use of a CPAP machine to reduce nighttime urination. I have emphasized the importance of reducing fluid intake three hours prior to bedtime. I explained the sleep study's benefits and possible outcomes, including additional bladder treatments if apnea is ruled out. The patient was informed of the potential risks and benefits of the planned approach. I have secured his consent and he is agreeable to the outlined management plan. COUNTS INCLUDE 234 BEDS AT THE [facility] Medical History Hypertension Lumbar degenerative disc disease Compression fracture of L3 vertebra Surgical History No pertinent past surgical history Family History Mother No problems noted. Father No problems noted. Social History Household Members: Spouse Housing: House Do you presently have visiting nurse or other home services: No Alcohol intake: current Alcohol intake frequency: holidays/special occasions only Alcohol type: hard liquor Patient Tobacco Use Status: Never used Tobacco e-Cigarette/Vaping Use: Never Used Second Hand Smoke Exposure: No service: No Current occupational status: unemployed Cognitive needs: No Hearing needs: No Vision needs: Yes (glasses) Review of Systems Const All systems reviewed & are unremarkable except as noted in HPI and below Physical Exam Const General: cooperative, healthy appearing, comfortable, no acute distress, well developed, alert and awake Orientation/consciousness: patient oriented x3 Limitations: language barrier HEENT Head: Yes normal to inspection, Yes normocephalic and Yes atraumatic Ears: hearing grossly normal bilaterally Eyes General: appearance normal, both eyes and all related structures Neck Neck: Yes normal visual inspection and Yes trachea midline Chest Chest palpation & inspection: normal inspection of the chest Resp Effort & Inspection: normal respiratory effort and able to speak in complete sentences Cardio Rate: regular rate GI Inspection: Yes normal to inspection General: Yes no CVA tenderness Back/Spine/Pelvis Back: no CVA tenderness Skin General skin exam: no rashes or lesions noted Neuro General: patient oriented x3 Extrem General: Yes normal to inspection Psych Appearance: grossly normal and well kempt Mental Status: mental status grossly normal Speech and movement: Normal speech and movement present and Clear speech present Affect: normal affect Attitude: cooperative Thought process: Normal thought process present Thought content: Normal thought content present Insight: Fair insight present (Psych) Judgement: Fair judgement present (Psych) Office Procedures Post Void Residual Post Residual Void Post Void Residual (PVR): 0 20114-Zgge Void Residual by ultrasound Results AMB Urinalysis, Automated UA Leukoctes 0 Edil/uL Last Edit by Stephany Murray CMA on 07/19/24 09:14 UA Nitrite Negative Last Edit by Stephany Murray CMA on 07/19/24 09:14 UA Urobilinogen 0.2 mg/dL Last Edit by Stephany Murray CMA on 07/19/24 09:14 UA Protein 0 mg/dL Last Edit by Stephany Murray CMA on 07/19/24 09:14 UA pH 6.0 Last Edit by Stephany Murray CMA on 07/19/24 09:14 UA Blood 0 Mitchell/uL Last Edit by Stephany Murray CMA on 07/19/24 09:14 UA Specific [place] 1.015 Last Edit by Stephany Murray CMA on 07/19/24 09:14 UA Ketone Negative Last Edit by Stephany Murray CMA on 07/19/24 09:14 UA Bilirubin 0 mg/dL Last Edit by Stephany Murray CMA on 07/19/24 09:14 UA Glucose 0 mg/dL Last Edit by Stephany Murray CMA on 07/19/24 09:14 Results Reviewed Results Reviewed: Laboratory Last Values Urine pH (Auto) 6.0 07/19/24 09:08 Specific [place] (Auto) 1.015 07/19/24 09:08 Urine Protein (Auto) 0 mg/dL 07/19/24 09:08 Glucose (UA)(Auto) 0 mg/dL 07/19/24 09:08 Urine Ketones (Auto) Negative 07/19/24 09:08 Urine Blood (Auto) 0 Mitchell/uL 07/19/24 09:08 Urine Nitrite (Auto) Negative 07/19/24 09:08 Urine Bilirubin (Auto) 0 mg/dL 07/19/24 09:08 Urine Urobilinogen (Auto) 0.2 mg/dL 07/19/24 09:08 Leukocyte Esterase (Auto) 0 Edil/uL 07/19/24 09:08 Date of Service: 06/21/24 Procedure(s): CT abdomen pelvis w IV con Findings: The lung bases are described on the chest CT same day. The gallbladder is decompressed. The liver, spleen, right adrenal gland and pancreas are unremarkable. The left adrenal gland is mildly prominent without discrete mass identified. Kidneys, ureters and bladder are within normal limits. No bowel obstruction or free air. Mild fecal retention. No pneumatosis, free fluid or abscess. Moderate diffuse atherosclerotic disease present. Chronic compression fracture at L3. No definite acute osseous finding. Impression: No definite acute process within the abdomen or pelvis. Mild fecal retention within the colon. Incidental findings as detailed. Assessment & Plan Assessment & Plan (1) Nocturia: Code(s): R35.1 - Nocturia Category: Medical Plan In office urinalysis results reviewed with the patient today; as noted above. PVR 0 mL. Will obtain retroperitoneal ultrasound for further assessment evaluation. We discussed potential causes of nocturia as well as further treatment options and risks and benefits of these treatment options. Will obtain sleep study for further assessment evaluation. We discussed importance of limiting fluids 2-3 hours prior to bed to decrease episodes of nocturia. We discussed potential near future in office cystoscopy if symptoms continue and or worsen. Follow-up in 3 months with sleep study and PVR; or sooner with any issues, concerns, and or questions. Orders: Orders RT home sleep study Today R06.83 - Snoring, R35.1 - Nocturia AMB Urinalysis Automated Today R35.1 - Nocturia AMB Post Void Residual by ultrasound Today R35.1 - Nocturia US retroperitoneal comp Today R35.1 - Nocturia Patient Instructions: The patient had an opportunity to ask questions regarding the treatment plan. All questions were answered. Physical exam, labs, and imaging were discussed and reviewed in detail. As well as risks, benefits, and discussion of treatment choices. No major barriers to understanding were identified. The patient expressed understanding and agreement with the above treatment plan. The patient was made aware they should contact our office by phone for worsening of their current condition, the appearance of new symptoms, or with any questions or concerns. Compliance is encouraged with any medications and follow up testing that is ordered. It is a privilege to be allowed the opportunity to participate in? your urological care.? Again, if you have any questions or concerns If you have any questions or concerns please do not hesitate to contact me. The office is [phone]. This note is constructed using voice recognition software. While every effort has been made to ensure accuracy education liaison errors may have been included. Yours sincerely, YOBANI Lovett Coding Level of Care Code New Pt Level 3 (87848) Diagnoses Nocturia R35.1 CPT Codes Post Residual Void - PVR CPT Code: 57453-Efig Void Residual by ultrasound ([id number])
== END 2024-07-19 09:45 | disposition home or self-care (01) ==
LOC: HO.HUSH 09:04
PROVIDERS: PCP Internal Medicine; Visit Provider Nurse Practitioner Family
DX: R35.1 Nocturia (principal)
CPT/HCPCS: 99203

== ENCOUNTER → 2024-07-19 09:03 | Outpatient (BNVA) | payer OTHER, SELFPAY | PROVIDERS: PCP Internal Medicine; Visit Provider Nurse Practitioner Family | DX: R35.1 Nocturia (principal) | CPT/HCPCS: 51798; 81003 ==

== ENCOUNTER 2024-07-19 14:44 | Outpatient (AMB) | payer OTHER, SELFPAY ==
[2024-07-19 14:51] VITALS: BP 134/100; PULSE 80; BMI 26.9
--- NOTE | 2024-07-19 14:51 | A.OFFVIS_ITS ---
Vital Signs 07/19/24 14:51 Height 5 ft 7 in Weight 171 lb 8.314 oz BMI 26.9 BP 134/100 H Blood Pressure Location Lt brachial Position Sitting Pulse 80 Pulse Source Pulse Oximeter Intake Visit Reasons: Follow up per HS Insurance Sales Professional Required: No Allergies No Known Allergies Allergy (Verified 07/19/24 21:30) Medication List - Last Reconciled 07/19/24 by Kerri Perrin NP-C bisacodyl (Dulcolax (bisacodyl)) 20 mg (4 x 5 mg) PO ONCE 1 day blood pressure monitor As directed carvedilol 6.25 mg PO BID furosemide 20 mg PO DAILY lidocaine 5% 1 patch topical DAILY 30 days polyethylene glycol 3350 (Miralax) 238 grams PO ONCE HPI HPI Follow up per HS: Details: Abbe is a 68-year-old male with past medical history of hypertension who was recently admitted to [facility] with uncontrolled hypertension, acute systolic and diastolic heart failure with echocardiogram showing EF 28% with grade 2 diastolic dysfunction. He was diuresed and started on carvedilol. He was discharged with Lasix 20 mg daily and now presents for follow-up. Today he reports that prior to his hospital discharge he was experiencing shortness of breath for about 1 month. He also then notice leg edema which prompted his ER evaluation. Since his hospital discharge he says he is doing well with no concerning symptoms. He says his breathing is back to normal. He no longer has leg edema. He does not get chest discomfort at rest or with activity. No heart palpitations, lightheadedness, presyncope, syncope. He says his tells him he holds his breath during sleep. He has been compliant with his medications. 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 He tells me he is going to the [facility] from July 31 to August 28. He goes to the gym and is able to do a stationary bike and lift weights what she says he tolerates well. [facility] Medical History Hypertension Lumbar degenerative disc disease Compression fracture of L3 vertebra Surgical History No pertinent past surgical history Family History Mother No problems noted. Father No problems noted. Social History Household Members: Spouse Housing: House Do you presently have visiting nurse or other home services: No Alcohol intake: current Alcohol intake frequency: holidays/special occasions only Alcohol type: hard liquor Patient Tobacco Use Status: Never used Tobacco e-Cigarette/Vaping Use: Never Used Second Hand Smoke Exposure: No service: No Current occupational status: unemployed Cognitive needs: No Hearing needs: No Vision needs: Yes (glasses) Review of Systems Const All systems reviewed & are unremarkable except as noted in HPI and below ENT Denies dizziness Card Denies chest pain, Denies chest pain at rest, Denies chest pain with activity, Denies rapid heart rate, Denies pedal edema, Denies edema, Denies leg edema, Denies lightheadedness, Denies palpitations, Denies dyspnea, Denies dyspnea on exertion and Denies orthopnea Resp Denies cough, Denies dyspnea and Denies dyspnea on exertion GI Denies hematochezia and Denies change in stool character Musc Denies abnormal gait, Denies limited range of motion, Denies muscle cramps, Denies muscle weakness, Denies numbness, Denies radiating pain into limb, Denies stiffness and Denies tingling Neuro Denies abnormal gait, Denies dizziness, Denies numbness and Denies tingling Endo Denies palpitations Physical Exam Vital Signs: Last Vital Signs Pulse 80 07/19/24 14:51 BP 134/100 H 07/19/24 14:51 BMI result Body Mass Index 26.9 Const General: cooperative, healthy appearing, comfortable and no acute distress Orientation/consciousness: patient oriented x3 Neck Neck: Yes normal visual inspection and Yes no JVD Resp Effort & Inspection: normal respiratory effort Auscultation: clear to auscultation bilaterally, no rales, no rhonchi and no wheezes Cardio Rate: regular rate Rhythm: regular rhythm Heart sounds: S1 normal heart sound present, S2 normal heart sound present, no gallops, no murmurs and no rubs Neuro General: patient oriented x3 Extrem General: Yes normal to inspection and No no pedal edema Psych Appearance: grossly normal Mental Status: mental status grossly normal Speech and movement: Normal speech and movement present Results AMB Urinalysis, Automated UA Leukoctes 0 Edil/uL Last Edit by Stephany Murray CMA on 07/19/24 09:14 UA Nitrite Negative Last Edit by Stephany Murray CMA on 07/19/24 09:14 UA Urobilinogen 0.2 mg/dL Last Edit by Stephany Murray CMA on 07/19/24 09:14 UA Protein 0 mg/dL Last Edit by Stephany Murray CMA on 07/19/24 09:14 UA pH 6.0 Last Edit by Stephany Murray CMA on 07/19/24 09:14 UA Blood 0 Mitchell/uL Last Edit by Stephany Murray CMA on 07/19/24 09:14 UA Specific [place] 1.015 Last Edit by Stephany Murray CMA on 07/19/24 09:14 UA Ketone Negative Last Edit by Stephany Murray CMA on 07/19/24 09:14 UA Bilirubin 0 mg/dL Last Edit by Stephany Murray CMA on 07/19/24 09:14 UA Glucose 0 mg/dL Last Edit by Stephany Murray CMA on 07/19/24 09:14 Results Reviewed Results Reviewed: Echocardiogram 06/22/24 Conclusions: - The left ventricular systolic function is severely decreased. The calculated ejection fraction is 28% by biplane method. - Evidence suggests grade II (moderate) diastolic dysfunction. - There is moderately decreased right ventricular systolic function. - No obvious valvular pathology seen on this study. - There is mild dilatation of the ascending aorta measuring 3.80 cm. EKG done 06/21/2024 shows sinus tachycardia, T-wave abnormality suggestive of lateral wall ischemia, rate 106. Assessment & Plan Assessment & Plan (1) Acute combined systolic and diastolic congestive heart failure: Code(s): I50.41 - Acute combined systolic (congestive) and diastolic (congestive) heart failure Category: Medical Plan: New onset acute systolic and diastolic heart failure noted during recent hospital admission and started on guideline directed medical therapy with carvedilol and Lasix. NYHA class 1 symptoms at this time. At this time I will add Entresto 24/26 mg b.i.d.. BMP in 1 week. Cardiac risk factors of hypertension. Blood pressure initially very elevated and improved with med management. Blood pressure currently 134/100. His cardiomyopathy may be related to uncontrolled hypertension. He has possible untreated sleep apnea which can contribute. Will check a home sleep study. He will need ischemic evaluation. Discussed cardiac catheterization in detail including risks and potential outcomes. He is agreeable to proceed. He wants to wait until after his vacation. Instructed on light physical activities. Preprocedure labs ordered. Cardiac catheterization question PCI ordered. Cardiology follow-up 2 weeks post procedure. (2) Hypertension: Code(s): I10 - Essential (primary) hypertension Category: Medical Qualifiers: Hypertension type: unspecified Qualified Code(s): I10 - Essential (prim whitley) hypertension Plan: Blood pressure goal less than 130/80. He continues to have elevated diastolic readings. Adding Entresto, continue carvedilol. (3) Cardiomyopathy: Code(s): I42.9 - Cardiomyopathy, unspecified Category: Medical Plan: New cardiomyopathy as above. (4) Hospital discharge follow-up: Code(s): Z09 - Encounter for follow-up examination after completed treatment for conditions other than malignant neoplasm Category: Medical Plan: Discharge summary reviewed Plan Time spent on chart review, documentation, interview and assessment Orders: Orders Basic Metabolic Panel 1 Month I42.9 - Cardiomyopathy, unspecified Prothrombin Time INR 1 Month I42.9 - Cardiomyopathy, unspecified Basic Metabolic Panel 07/19/24 I50.41 - Acute combined systolic (congestive) and diastolic (congestive) heart failure Cardiac Cath LT w PCI 07/19/24 I16.1 - Hypertensive emergency, I42.9 - Cardiomyopathy, unspecified Complete Blood Count Auto Diff 1 Month I42.9 - Cardiomyopathy, unspecified Medications: New sacubitril-valsartan 24-26 mg (Entresto) Take 1 tab twice daily 1 tab PO BID 60 tabs 5RF Coding Level of Care Code Est Pt Level 4 (11535) Diagnoses Acute combined systolic and diastolic congestive heart failure I50.41 Hypertension, unspecified type I10 Hypertension type: unspecified Cardiomyopathy I42.9 Hospital discharge follow-up Z09
== END 2024-07-19 15:44 | disposition home or self-care (01) ==
LOC: HO.HCS 14:45
PROVIDERS: PCP Internal Medicine; Visit Provider Nurse Practitioner Family
DX: I50.41 Acute combined systolic (congestive) and diastolic (congestive) heart failure (principal); I10 Essential (primary) hypertension; I42.9 Cardiomyopathy, unspecified; Z09 Encounter for follow-up examination after completed treatment for conditions other than malignant neoplasm
CPT/HCPCS: 99214

== ENCOUNTER 2024-07-26 11:51 | Emergency (ER) | payer OTHER, SELFPAY ==
--- NOTE | ~2024-07-26 | XR_ITS ---
CLINICAL HISTORY: pain 2 view chest x-ray Comparison: CR - XR CHEST 1V - 06/21/24 09:07 EDT Findings: There are small bilateral pleural effusions. There is a mild degree of pulmonary congestion. There are linear opacities present at both lung bases, knytl-lhvugib-lsrr-left. Normal size heart. No acute fracture. IMPRESSION: 1. There is a mild degree of pulmonary congestion. There are small bilateral pleural effusions. 2. Mild bibasilar opacities are most likely secondary to atelectasis. This document has been electronically signed by: Galina Whittington MD on 07/26/2024 13:20:09
[2024-07-26 11:59] VITALS: BP 167/108; PULSE 84; RESP 19; TEMP 36.6; O2SAT 96; BMI 26.6
--- NOTE | 2024-07-26 11:59 | ECG_ITS ---
Test Reason : DYSPNEA Blood Pressure : */* mmHG Vent. Rate : 78 BPM Atrial Rate : 78 BPM P-R Int : 188 ms QRS Dur : 90 ms QT Int : 416 ms P-R-T Axes : 43 -2 159 degrees QTcB Int : 474 ms Normal sinus rhythm Minimal voltage criteria for LVH, may be normal variant ( Ramana product ) T wave abnormality, consider lateral ischemia Prolonged QT Abnormal ECG When compared with ECG of 21-Jun-2024 08:26, No significant change was found Referred By: Casey Devlin Electronically Signed By: Arvind Terrazas
--- NOTE | 2024-07-26 11:59 | ED.GENADULT ---
HPI - General Adult General Chief complaint: Upper Respiratory Symptoms Stated complaint: HBP SOB Time Seen by Provider: 07/26/24 13:31 Source: patient and RN notes reviewed Mode of arrival: ambulatory Limitations: no limitations History of Present Illness ED Provider: Lacey Wong PA-C HPI narrative: This is a 68-year-old male, with a past medical history of hypertension, and recent diagnosis of CHF, who presents emergency department with concerns for shortness of breath and bilateral lower extremity swelling. Of note, patient was admitted to the hospital on June 21, 2024 where he was diagnosed with new onset heart failure and hypertensive urgency. He does report that he has a slight cough, no fevers or chills. No abdominal pain, nausea, vomiting or diarrhea. He states that the shortness ofbreath worsens with lying down. He denies any chest pain. He was seen by skirt panel assembler on July 19, 2024, where he was started on Entresto. He states he has been compliant with all his medications, last took his Lasix this morning. He denies any severe headache, dizziness, blurred vision, palpitations, chest pain, abdominal pain, nausea, vomiting or diarrhea. He is urinating without difficulty. No other complaints or concerns at this time. MD complaint: Shortness of breath Onset (ago): day(s) Relieving factors: none Associated symptoms: shortness of breath Treatments prior to arrival: none Related Data Previous Rx's ?Medication ?Instructions ?Recorded blood pressure monitor #1 ea 11/21/22 lidocaine 5 % topical patch 1 patch topical DAILY pain 30 days 05/31/24 #30 ea bisacodyl 5 mg tablet,delayed 20 mg (4 x 5 mg) PO ONCE 1 day #4 06/28/24 release (Dulcolax (bisacodyl)) tabs polyethylene glycol 3350 17 238 g PO ONCE #238 grams 06/28/24 gram/dose oral powder (Miralax) carvedilol 6.25 mg tablet 6.25 mg PO BID 90 days #180 tabs 07/24/24 furosemide 20 mg tablet 20 mg PO DAILY 90 days #90 tabs 07/24/24 sacubitril 24 mg-valsartan 26 mg 1 tab PO BID 90 days #180 tabs 25 tablet (Entresto) Allergies Allergy/AdvReac Type Severity Reaction Status Date / Time No Known Allergies Allergy Verified 07/26/24 12:01 Review of Systems Review of Systems: Constitutional: No Weight loss, No Fever, No Chills, No Night Sweats, No Fatigue, No Malaise ENT/Mouth: No Hearing loss, No Ear Pain, No Nasal Congestion, No Sinus Pain, No Hoarseness, No sore throat, No Rhinorrhea, No Swallowing Difficulty Eyes: No Eye Pain, No Swelling, No Redness, No Foreign Body, No Discharge, No Vision Changes Cardiovascular: No Chest Pain, No SOB, No Dyspnea on Exertion, No Orthopnea, No Edema, No Palpitations Respiratory: +Cough, + Sputum, No Wheezing, No Smoke Exposure, + Dyspnea, +orthopnea Gastrointestinal: No Nausea, No Vomiting, No Diarrhea, No Constipation, No Abdominal pain, No Hematochezia, No Melena Genitourinary: No irregular bleeding, No Dysuria, No Urinary Frequency, No Hematuria, No Urinary Incontinence/retention, No Urgency, No Flank Pain, No Urinary Flow Changes, No Hesitancy Musculoskeletal: No joint pain, No Myalgias, No Joint Swelling Skin: No Skin Lesions, No rash Neuro: No Weakness, No Numbness, No Paresthesias, No Loss of Consciousness, No Dizziness, No Headache Psych: No Anxiety/Panic, No Depression, No SI/HI/AH/VH, No Social Issues, Heme/Lymph: No Bruising, No Bleeding,No Lymphadenopathy Endocrine: No Polyuria, No Polydipsia, No Temperature Intolerance Yes all other systems are reviewed and are negative Constitutional: Constitutional: Reports as per [facility] Past Medical History Medical History Hypertension Lumbar degenerative disc disease Compression fracture of L3 vertebra Surgical History No pertinent past surgical history Family History Family History Mother No problems noted. Father No problems noted. Social History Social History Household Members: Spouse Housing: House Do you presently have visiting nurse or other home services: No Alcohol intake: current Alcohol intake frequency: holidays/special occasions only Alcohol type: hard liquor Patient Tobacco Use Status: Never used Tobacco e-Cigarette/Vaping Use: Never Used Second Hand Smoke Exposure: No Advance Directives: No Advance Directives Information Provided: Yes Do you have a plan to hurt others: No Plan service: No Current occupational status: unemployed Cognitive needs: No Hearing needs: No Vision needs: Yes (glasses) Physical Exam ED Vital Signs: Vital Signs - 24 hr 07/26/24 11:59 07/26/24 14:42 07/26/24 15:09 Temperature 98 F 98.4 F Pulse Rate 84 80 Respiratory Rate 19 18 Blood Pressure 167/108 H 157/114 H Pulse Oximetry 96 94 94 Oxygen Delivery Method Room Air Room Air Room Air 07/26/24 15:46 07/26/24 17:07 Temperature 98.4 F 98.4 F Pulse Rate 80 80 Respiratory Rate 16 16 Blood Pressure 154/102 H 152/102 H Pulse Oximetry 96 96 Oxygen Delivery Method Room Air Room Air BMI result Body Mass Index 26.6 Const General: cooperative, comfortable and no acute distress Orientation/consciousness: patient oriented x3 Limitations: no limitations HENMT Head: Yes normal to inspection, Yes normocephalic and Yes atraumatic Ears: hearing grossly normal bilaterally General nose exam: Normal external nose present Face and sinus: Yes normal facial exam Mouth: Normal oral and palatal mucosa present, oropharynx normal and moist mucous membranes Throat: Yes posterior oropharynx normal Eyes General: appearance normal, both eyes and all related structures Eyelids: Yes eyelids normal Conjunctivae: conjunctivae normal Sclerae: sclerae normal Pupils: Equal, round and reactive pupils present EOM: EOMs intact bilaterally Neck Neck: Yes normal visual inspection, Yes full ROM and Yes no lymphadenopathy Lymphatic: no lymphadenopathy noted Chest Chest palpation & inspection: normal inspection of the chest Resp Effort & Inspection: normal respiratory effort and able to speak in complete sentences Auscultation: clear to auscultation bilaterally, no crackles, no rales, no rhonchi and no wheezes Cardio Rate: regular rate Rhythm: regular rhythm Heart sounds: S1 normal heart sound present and S2 normal heart sound present GI Inspection: Yes normal to inspection Skin General skin exam: no rashes or lesions noted Trauma: no lacerations or abrasions Wounds: no wounds Neuro General: patient oriented x3 and moves all extremities Cranial nerves: Yes Equal, round and reactive pupils present Extrem Other: Very minimal edema noted bilaterally, no calf tenderness. General: Yes normal to inspection Right upper extremity: normal to inspection Left upper extremity: normal to inspection Right lower extremity: normal to inspection Left lower extremity: normal to inspection Course Course Course Narrative: RME, this is a rapid medical exam performed by Eamon Devlin please refer to primary provider for complete H&P- 68 year old male presents for evaluation of shortness of breath and high blood pressure. Symptoms started yesterday. He does have a history of heart failure. He appears well in triage. Plan for cardiac workup Medications Administered Discontinued Medications Generic Name Dose Route Start Last Admin Trade Name Freq PRN Reason Stop Dose Admin Furosemide 40 mg 07/26/24 14:21 07/26/24 14:54 Furosemide 40 Mg/4 Ml Vial IVPUSH 07/26/24 14:22 40 mg ONCE ONE Administration Protocol Medical Decision Making Medical Decision Making [facility] Narrative: This is a 68-year-old male who presents emergency department with concerns for shortness for breath which started yesterday. Patient had recent diagnosis of CHF which he was admitted for back in June. On arrival, patient is well-appearing, appears to be under no acute distress. Lung sounds with crackles auscultated at bilateral lung bases, blood pressure slightly elevated 167/108, oxygen saturation 96% on room air. He is speaking in full sentences. Labs were obtained prior to my evaluation, he has no leukocytosis, H&H stable. Chemistry revealing no significant electrolyte derangement, creatinine 1.27, BUN 27, similar to previous. Slight elevation in liver transaminases. Troponin 16.6, will repeat. BNP is elevated at 08/21/1982. Urine does not appear to be infected. Viral swabs are negative. Chest x-ray was performed, revealing mild degree of pulmonary congestion, and small bilateral pleural effusions, and mild bibasilar opacities likely secondary to atelectasis. EKG appears to be similar to previous. Differential diagnoses include acute CHF, viral illness, COVID, flu. Given BNP, and current presentation, symptoms consistent with acute exacerbation of CHF. Discussed case with my attending physician, Dr. Early, will give dose of Lasix 40 mg IV, and reassess. Given that he is not hypoxic, we will see if patient symptomatically improved after receiving IV Lasix. We will continue to closely monitor. 07/26/2024 1645 - repeat trop flat. patient feeling much better after Lasix, reports that the shortness for breath has fully resolved. He had 1600 cc of urine output. Ambulatory O2 was performed, patient did not become hypoxic or short of breath. I discussed this with my attending physician, Dr. Early. Given that clinically he is feeling much better, and is asymptomatic at this time with normal vital signs, patient can be discharged. We will increase Lasix 20 mg by mouth to Lasix 40 mg by mouth for the next 4 days. He has a 90 day supply therefore new prescription was not sent. I stressed the importance of calling skirt panel assembler tomorrow for further management of his symptoms. I also stressed the importance of returning with any new or worsening symptoms. He understands and agrees with this plan. Patient stable for discharge. Differential Diagnosis Differential Diagnoses: The differential diagnosis associated with the presentation includes See [facility] Admission/Observation Consideration of admission/observation: Escalation of care including admission/observation considered Lab Data [facility] Lab Attestation statement: I reviewed the patient's lab results. See MDM and course 07/26/24 12:13 07/26/24 12:13 Labs: Lab Results 07/26/24 07/26/24 07/26/24 Range/Units 12:13 12:18 14:47 WBC 7.3 (4.8-10.8) X10*3/uL RBC 6.22 H (4.60-5.80) X10*6/uL Hgb 17.9 (14.0-18.0) g/dl Hct 55.1 H (42.0-52.0) % MCV 88.6 (80.0-98.0) fL MCH 28.8 (27.0-33.0) pg MCHC 32.5 (31.0-36.0) g/dl RDW 13.8 (11.0-16.0) % Plt Count 203 (160-400) X10*3/uL MPV 10.4 (9.4-12.4) fL Immature Gran % (Auto) 0.3 (0.0-0.4) % Neut % (Auto) 67.1 (45-73) % Lymph % (Auto) 19.8 L (20-40) % [place] % (Auto) 9.6 (2-11) % Eos % (Auto) 2.8 (0-4) % Baso % (Auto) 0.4 (0-2) % Lymph # (Auto) 1.4 (1.2-4.9) X10*3/uL [place] # (Auto) 0.7 (0.1-1.2) X10*3/uL Eos # (Auto) 0.2 (0.0-0.4) X10*3/uL Baso # (Auto) 0.0 (0.0-0.2) X10*3/uL Abs Immat Gran (auto) 0.02 (0.00-0.03) X10*3/uL Absolute Neuts (auto) 4.9 (2.0-8.3) x10*3/uL Absolute Nucleated RBC 0.000 (0.0-0.012) X10*3/uL Nucleated RBC % (auto) 0.0 (0.0-0.2) /100WBC Sodium 143 (135-145) mmol/L Potassium 4.6 (3.3-5.1) mmol/L Chloride 104 (96-108) mmol/L Carbon Dioxide 30 H (22-29) mmol/L Anion Gap 14 (12-20) BUN 27 H (9-16) mg/dL Creatinine 1.27 (0.5-1.4) mg/dL Estim Creat Clear Calc 52.7 Estimated GFR 57 Random Glucose 148 H (60-115) mg/dL Calcium 9.7 (8.4-10.2) mg/dL Total Bilirubin 0.7 (0.0-1.0) mg/dL AST 38 H (5-37) U/L ALT 67 H (0-40) U/L Alkaline Phosphatase 69 (39-117) U/L Troponin I High Sens 16.6 15.3 (<3.5-35.0) ng/L B-Natriuretic Peptide 2684 H (<100) pg/mL Total Protein 7.0 (6.5-8.0) g/dL Albumin 4.1 (3.5-5.0) g/dL Lipase 47 (8-78) U/L Urine Color Yellow Urine Appearance Clear Urine pH 6.0 (5.0-9.0) Ur Specific [place] 1.015 (1.005-1.025) Urine Protein 30 (1+) H (Neg-Trace) mg/dL Urine Glucose (UA) Negative (Negative) mg/dL Urine Ketones Negative (Negative) mg/dL Urine Blood Negative (Negative) Urine Nitrite Negative (Negative) Ur Leukocyte Esterase Negative (Negative) Urine RBC 0-2 (0-2) /HPF Urine WBC 0-5 (0-5) /HPF Ur Squamous Epith Cells 0-2 (0-2) /HPF Urine Bacteria None Seen (None Seen) Hyaline Casts 0-2 (0-2) /LPF Influenza Type A (PCR) NEGATIVE (Negative) Influenza Type B (PCR) NEGATIVE (Negative) RSV RNA Qual (PCR) NEGATIVE (Negative) SARS-CoV-2 RNA (RT-PCR) NEGATIVE (Negative) Independent Interpretation I performed an independent interpretation of an: EKG Interpretation: EKG normal sinus rhythm at a ventricular rate of 78 beats per minute, QT QTC 416/474, inverted T-waves noted in V5 and V6, which is seen on previous. No STEMI. Radiology Impression Discussion of test interpretation with radiology: I have reviewed the radiologist's reading. Radiologist Impression: CLINICAL HISTORY: pain 2 view chest x-ray Comparison: CR - XR CHEST 1V - 06/21/24 09:07 EDT Findings: There are small bilateral pleural effusions. There is a mild degree of pulmonary congestion. There are linear opacities present at both lung bases, sqjmw-hlbehut-rdpi-left. Normal size heart. No acute fracture. IMPRESSION: 1. There is a mild degree of pulmonary congestion. There are small bilateral pleural effusions. 2. Mild bibasilar opacities are most likely secondary to atelectasis. This document has been electronically signed by: Galina Whittington MD on 07/26/2024 13:20:09 Dictated By: Galina Whittington MD Discharge Plan Discharge Clinical Impression: CHF exacerbation Patient Disposition: Home, Self-Care Instructions: Heart Failure (ED) Additional Instructions: You were seen in the ER due to shortness of breath. Your shortness of breath is likely attributed to your CHF. We had given you IV lasix and your symptoms significantly improved. We are increasing your lasix for several days. Take 2 tablets of your furosemide (40mg) daily for the next 4 days. YOU NEED TO CALL YOUR WIRE DRAWING SETTER. Please continue taking all your medications at home. Please follow-up with your skirt panel assembler, call tomorrow to make an appointment. If any new or worsening symptoms occur including but not limited to severe chest pain, shortness of breath, please seek emergent care. Prescriptions: No Action carvedilol 6.25 mg tablet 6.25 mg PO BID 90 Days Qty: 180 1RF Rx Instructions: must administer with a meal/food furosemide 20 mg tablet 20 mg PO DAILY 90 Days Qty: 90 1RF Entresto 24-26 mg tablet 1 tab PO BID 90 Days Qty: 180 3RF Rx Instructions: Take 1 tab twice daily (DME) blood pressure monitor Kit See Rx Instructions .Route Qty: 1 0RF Rx Instructions: As directed bisacodyl [Dulcolax (bisacodyl)] 5 mg tablet,delayed release (DR/EC) 20 mg PO ONCE 1 Days Qty: 4 0RF Rx Instructions: take 4 tabs at noon the day before your colonoscopy polyethylene glycol 3350 [Miralax] 17 gram/dose powder 238 g PO ONCE Qty: 238 0RF Rx Instructions: As directed by gastroenterology department at [facility] lidocaine 5 % adhesive patch,medicated 1 patch topical DAILY 30 Days Qty: 30 1RF Interventions: ED Discharge Assessment Last Done: 07/26/24 17:07 Discharge Date/Time: 07/26/24 17:08 Print Language: Mauritian
[2024-07-26 12:19] LABS: MANUAL DIFF FLAG NO
[2024-07-26 12:21] LABS: Basophils Percent Auto 0.4 % (0-2); Eosinophils Absolute Auto 0.2 X10*3/uL (0.0-0.4); Eosinophils Percent Auto 2.8 % (0-4); Hemoglobin 17.9 g/dl (14.0-18.0); Imm Gran Abs Auto 0.02 X10*3/uL (0.00-0.03); Imm Gran Pct Auto 0.3 % (0.0-0.4); Lymphocytes Absolute Auto 1.4 X10*3/uL (1.2-4.9); Lymphocytes Percent Auto 19.8 % (20-40); Mean Corpuscular HGB Conc 32.5 g/dl (31.0-36.0); Mean Corpuscular Hemoglobin 28.8 pg (27.0-33.0); Mean Corpuscular Volume 88.6 fL (80.0-98.0); Mean Platelet Volume 10.4 fL (9.4-12.4); Monocytes Absolute Auto 0.7 X10*3/uL (0.1-1.2); Monocytes Percent Auto 9.6 % (2-11); Neutrophils Absolute Auto 4.9 x10*3/uL (2.0-8.3); Neutrophils Percent Auto 67.1 % (45-73); Platelet Count 203 X10*3/uL (160-400); Red Blood Count 6.22 X10*6/uL (4.60-5.80); Red Cell Distribution Width 13.8 % (11.0-16.0); White Blood Count 7.3 X10*3/uL (4.8-10.8)
[2024-07-26 12:25] LABS: Hematocrit 55.1 % (42.0-52.0)
[2024-07-26 12:38] LABS: Alanine Aminotransferase 67 U/L (0-40); Albumin Level 4.1 g/dL (3.5-5.0); Alkaline Phosphatase 69 U/L (39-117); Anion Gap 14 (12-20); Aspartate Amino Transferase 38 U/L (5-37); Bilirubin Total 0.7 mg/dL (0.0-1.0); Blood Urea Nitrogen 27 mg/dL (9-16); Calcium 9.7 mg/dL (8.4-10.2); Carbon Dioxide 30 mmol/L (22-29); Chloride 104 mmol/L (96-108); Creatinine Clr Calc Pharmacy 52.7; Estimated Glomerular Filt Rate 57; Glucose Random 148 mg/dL (60-115); Lipase 47 U/L (8-78); Potassium 4.6 mmol/L (3.3-5.1); Sodium 143 mmol/L (135-145)
[2024-07-26 12:39] LABS: Appearance Urine Clear; Color Urine Yellow; Glucose Urine UA Negative (Negative); Leukocyte Esterase Urine Negative (Negative); Nitrite Urine Negative (Negative); Specific Gravity - Urine 1.015 (1.005-1.025); UMIC TRIGGER UACC YES; Urine Blood Negative (Negative); Urine Ketones Negative (Negative); Urine Protein 30 (1+) mg/dL (Neg-Trace)
[2024-07-26 12:43] LABS: Bacteria Urine None Seen (None Seen); Hyaline Casts Urine 0-2 /LPF (0-2); RBC Urine 0-2 /HPF (0-2); Squamous Epithelial Cell Urine 0-2 /HPF (0-2); WBC Urine 0-5 /HPF (0-5)
[2024-07-26 12:45] LABS: Troponin-I High Sensitivity 16.6 ng/L (<3.5-35.0)
[2024-07-26 12:53] LABS: B Type Natriuretic Peptide 2684 pg/mL (<100)
[2024-07-26 13:07] LABS: Influenza A PCR NEGATIVE (Negative); Influenza B PCR NEGATIVE (Negative); Resp Syncy Virus RNA Qual PCR NEGATIVE (Negative); SARS COV2 PCR INHOUSE NEGATIVE (Negative)
[2024-07-26 14:42] VITALS: BP 157/114; PULSE 80; RESP 18; TEMP 36.9; O2SAT 94
[2024-07-26] MEDS: Furosemide 40 MG/4 ML VIAL IVPUSH (14:54)
[2024-07-26 15:09] VITALS: O2SAT 94
[2024-07-26 15:13] LABS: Troponin-I High Sensitivity 15.3 ng/L (<3.5-35.0)
[2024-07-26 15:46] VITALS: BP 154/102; PULSE 80; RESP 16; TEMP 36.9; O2SAT 96
[2024-07-26 17:07] VITALS: BP 152/102; PULSE 80; RESP 16; TEMP 36.9; O2SAT 96
== END 2024-07-26 17:08 | disposition home or self-care (01) ==
PROVIDERS: Physician Assistant; Physician Assistant Medical; Emergency Provider Emergency Medicine; PCP Internal Medicine
DX: I11.0 Hypertensive heart disease with heart failure (principal); I50.9 Heart failure, unspecified; R06.02 Shortness of breath; R05.9 Cough, unspecified; Z03.818 Encounter for observation for suspected exposure to other biological agents ruled out; Z79.899 Other long term (current) drug therapy
CPT/HCPCS: 0241U; 36415; 71046; 80053; 81001; 83690; 83880; 84484; 85025; 93005; 96374; 99284; 99285; J1938

== ENCOUNTER → 2024-07-26 11:59 | Outpatient (BNV) | payer OTHER, SELFPAY | PROVIDERS: Emergency Provider Emergency Medicine; PCP Internal Medicine; Visit Provider Internal Medicine Cardiovascular Disease | DX: I45.81 Long QT syndrome (principal) | CPT/HCPCS: 93010 ==

== ENCOUNTER → 2024-07-26 12:00 | Outpatient (BNV) | payer OTHER, SELFPAY | PROVIDERS: Emergency Provider Emergency Medicine; PCP Internal Medicine; Visit Provider Radiology Diagnostic Radiology | DX: J90 Pleural effusion, not elsewhere classified (principal) | CPT/HCPCS: 71046 ==

== ENCOUNTER 2024-09-13 07:55 | Outpatient (REF) | payer OTHER, SELFPAY ==
[2024-09-13 08:09] LABS: MANUAL DIFF FLAG NO
[2024-09-13 08:44] LABS: Hemoglobin 18.3 g/dl (14.0-18.0); Imm Gran Abs Auto 0.01 X10*3/uL (0.00-0.03); Imm Gran Pct Auto 0.2 % (0.0-0.4); Lymphocytes Absolute Auto 2.1 X10*3/uL (1.2-4.9); Mean Corpuscular HGB Conc 32.9 g/dl (31.0-36.0); Mean Corpuscular Hemoglobin 28.8 pg (27.0-33.0); Mean Corpuscular Volume 87.7 fL (80.0-98.0); NRBC Abs Auto 0.000 X10*3/uL (0.0-0.012); NRBC Pct Auto 0.0 /100WBC (0.0-0.2); Platelet Count 212 X10*3/uL (160-400); Red Blood Count 6.35 X10*6/uL (4.60-5.80); White Blood Count 6.2 X10*3/uL (4.8-10.8)
[2024-09-13 08:45] LABS: Hematocrit 55.7 % (42.0-52.0)
[2024-09-13 08:50] LABS: INTERNATIONAL NORM RATIO 1.0 (0.9-1.1); Prothrombin Time 11.6 SEC (10.9-12.4)
[2024-09-13 09:21] LABS: Anion Gap 9 (12-20); Blood Urea Nitrogen 18 mg/dL (9-16); Calcium 8.9 mg/dL (8.4-10.2); Carbon Dioxide 31 mmol/L (22-29); Chloride 106 mmol/L (96-108); Estimated Glomerular Filt Rate 57; Potassium 4.2 mmol/L (3.3-5.1); Sodium 142 mmol/L (135-145)
== END 2024-09-13 07:56 | disposition home or self-care (01) ==
LOC: HO.LAB 07:55
PROVIDERS: PCP Internal Medicine; Visit Provider Nurse Practitioner Family
DX: Z51.81 Encounter for therapeutic drug level monitoring (principal); I50.41 Acute combined systolic (congestive) and diastolic (congestive) heart failure; I42.9 Cardiomyopathy, unspecified
CPT/HCPCS: 36415; 80048; 85025; 85610

== ENCOUNTER 2024-09-20 08:56 | Outpatient (AMB) | payer OTHER, SELFPAY ==
[2024-09-20 09:00] VITALS: BP 148/80; PULSE 87; BMI 26.9
--- NOTE | 2024-09-20 09:00 | MHC.OFFVIS ---
Vital Signs 09/20/24 09:00 Height 5 ft 7 in Weight 171 lb 8.314 oz BMI 26.9 BP 148/80 H Blood Pressure Location Lt brachial Pulse 87 Pulse Source Pulse Oximeter Intake Visit Reasons: 2 wk s/p cath Bandoleer Packer Required: Yes Bandoleer Packer Language: Computer Information Systems Professor Name: voice rocha [id number] Allergies No Known Allergies Allergy (Verified 09/20/24 09:02) Medication List - Last Reconciled 09/20/24 by FELIX Ayala bisacodyl (Dulcolax (bisacodyl)) 20 mg (4 x 5 mg) PO ONCE 1 day blood pressure monitor As directed carvedilol 6.25 mg PO BID 90 days furosemide 20 mg PO DAILY 90 days lidocaine 5% 1 patch topical DAILY 30 days polyethylene glycol 3350 (Miralax) 238 grams PO ONCE sacubitril-valsartan 24-26 mg (Entresto) 1 tab PO BID 90 days verapamil ER 120 mg PO DAILY HPI HPI 2 wk s/p cath: Details: Abbe is a 69-year-old male with past medical history of hypertension who was admitted to [facility] 06/2024 with uncontrolled hypertension, acute systolic and diastolic heart failure with echocardiogram showing EF 28% with grade 2 diastolic dysfunction. He was started on carvedilol, Lasix and Entresto. On last visit a cardiac catheterization was ordered however he did not complete. He was in the emergency room on 07/26/2024 with shortness of breath and was found to have Congestive heart failure. He was given IV Lasix and his home dose of Lasix was temporarily increased. He now presents for follow-up. Today he reports that he is feeling good. He has no physical complaints. Since I last saw him he spent a month in the [facility]. He has no chest discomfort at rest or with activity. No heart palpitations, lightheadedness, presyncope, syncope. No shortness of breath, PND, orthopnea or edema. He reports compliance with his medications. He says he does not want to complete the cardiac catheterization or the sleep study that was previously ordered. He is willing to do a stress test and repeat echocardiogram. 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 He continues to use a stationary bike for exercise. PFSH Medical History Hypertension Lumbar degenerative disc disease Compression fracture of L3 vertebra Surgical History No pertinent past surgical history Family History Mother No problems noted. Father No problems noted. Social History Household Members: Spouse Housing: House Do you presently have visiting nurse or other home services: No Alcohol intake: current Alcohol intake frequency: holidays/special occasions only Alcohol type: hard liquor Patient Tobacco Use Status: Never used Tobacco e-Cigarette/Vaping Use: Never Used Second Hand Smoke Exposure: No service: No Current occupational status: unemployed Cognitive needs: No Hearing needs: No Vision needs: Yes (glasses) Review of Systems Const All systems reviewed & are unremarkable except as noted in HPI and below ENT Denies dizziness Card Denies chest pain, Denies chest pain at rest, Denies chest pain with activity, Denies rapid heart rate, Denies pedal edema, Denies edema, Denies leg edema, Denies lightheadedness, Denies palpitations, Denies dyspnea, Denies dyspnea on exertion and Denies orthopnea Resp Denies cough, Denies dyspnea and Denies dyspnea on exertion GI Denies hematochezia and Denies change in stool character Musc Denies abnormal gait, Denies limited range of motion, Denies muscle cramps, Denies muscle weakness, Denies numbness, Denies radiating pain into limb, Denies stiffness and Denies tingling Neuro Denies abnormal gait, Denies dizziness, Denies numbness and Denies tingling Endo Denies palpitations Physical Exam Vital Signs: Last Vital Signs Pulse 87 09/20/24 09:00 BP 148/80 H 09/20/24 09:00 BMI result Body Mass Index 26.9 Const General: cooperative, healthy appearing, comfortable and no acute distress Orientation/consciousness: patient oriented x3 Neck Neck: Yes normal visual inspection and Yes no JVD Resp Effort & Inspection: normal respiratory effort Auscultation: clear to auscultation bilaterally, no rales, no rhonchi and no wheezes Cardio Rate: regular rate Rhythm: regular rhythm Heart sounds: S1 normal heart sound present, S2 normal heart sound present, no gallops, no murmurs and no rubs Neuro General: patient oriented x3 Extrem General: Yes normal to inspection and No no pedal edema Psych Appearance: grossly normal Mental Status: mental status grossly normal Speech and movement: Normal speech and movement present Assessment & Plan Assessment & Plan (1) Acute combined systolic and diastolic congestive heart failure: Code(s): I50.41 - Acute combined systolic (congestive) and diastolic (congestive) heart failure Category: Medical Plan: New onset acute systolic and diastolic heart failure June 2024. Echocardiogram 06/22/2024 showed EF 28%, grade 2 diastolic dysfunction, moderate decrease in the RV systolic function. Currently stable with NYHA class 1 symptoms. He is on carvedilol, Entresto, Lasix. Blood pressure elevated at 148/80. Will titrate Entresto. BMP in 1 week. He declines cardiac catheterization. He declines sleep study. He is willing to pursue exercise nuclear stress test, will order. Will check limited echo to reassess EF. Signs and symptoms of heart failure reviewed with him. Reviewed low-salt diet. Cardiology follow-up 2-3 months, sooner if needed. (2) Hypertension: Code(s): I10 - Essential (primary) hypertension Category: Medical Qualifiers: Hypertension type: unspecified Qualified Code(s): I10 - Essential (primary) hypertension Plan: Blood pressure goal less than 130/80. Blood pressure elevated today. Increasing Entresto dose. Continue carvedilol and Lasix. (3) Cardiomyopathy: Code(s): I42.9 - Cardiomyopathy, unspecified Category: Medical Plan: New cardiomyopathy as above.-unknown if this is ischemic versus nonischemic. He denies anginal symptoms. No signs of heart failure on examination. Plan I discussed with the patient the need for an ultrasound to evaluate heart function and a nuclear stress test to assess blood flow. We talked about adjusting the Entresto dosage to improve blood pressure control and the potential to reduce diuretic therapy if heart function improves. The patient was informed about the scheduling process for the tests and agreed to proceed. Orders: Orders NM cardiolite stress test Today I42.9 - Cardiomyopathy, unspecified, I50.41 - Acute combined systolic (congestive) and diastolic (congestive) heart failure CA Echo Limited Today I42.9 - Cardiomyopathy, unspecified, I50.41 - Acute combined systolic (congestive) and diastolic (congestive) heart failure CA stress test Today I42.9 - Cardiomyopathy, unspecified, I50.41 - Acute combined systolic (congestive) and diastolic (congestive) heart failure Medications: New sacubitril-valsartan 49-51 mg (Entresto) dose increased 1 tab PO BID 60 tabs 5RF Discontinued sacubitril-valsartan 24-26 mg (Entresto) Take 1 tab twice daily Discontinued Reason: Doctor's Order 1 tab PO BID 90 days 180 tabs 3RF Patient Instructions: - Continue taking all prescribed medications as directed. - Await a call from centralized scheduling to arrange test appointments. - Inform the vp strategic planning of any preferred dates for testing. Patient was informed and verbally consented to the use of an ambient scribe for clinic note documentation during this visit. Visit time spent on chart review, interview, assessment, orders, documentation. Coding Level of Care Code Est Pt Level 4 (82328) Complex EM visit Add On G2211 Diagnoses Acute combined systolic and diastolic congestive heart failure I50.41 Hypertension, unspecified type I10 Hypertension type: unspecified Cardiomyopathy I42.9 Time Spent (min) 32
== END 2024-09-20 09:49 | disposition home or self-care (01) ==
LOC: HO.HCS 08:57
PROVIDERS: PCP Internal Medicine; Visit Provider Nurse Practitioner Family
DX: I50.41 Acute combined systolic (congestive) and diastolic (congestive) heart failure (principal); I10 Essential (primary) hypertension; I42.9 Cardiomyopathy, unspecified
CPT/HCPCS: 99214

== ENCOUNTER 2024-09-21 16:07 | Outpatient (AMB) | payer OTHER, SELFPAY ==
--- NOTE | 2024-09-21 16:11 | A.OFFPC_ITS ---
Vital Signs 09/21/24 16:12 Height 5 ft 7 in Weight 169 lb BMI 26.5 BP 138/90 H Blood Pressure Location Lt brachial Position Sitting Intake Visit Reasons: 4 Month F/U Intake Note: Patient here for a 4 month follow up Audiovisual Production Specialist Required: No Accompanied by: Self / Same As Patient Allergies No Known Allergies Allergy (Verified 09/21/24 16:21) Medication List - Last Reconciled 09/21/24 by Cheli Joshua MD bisacodyl (Dulcolax (bisacodyl)) 20 mg (4 x 5 mg) PO ONCE 1 day blood pressure monitor As directed carvedilol 6.25 mg PO BID 90 days furosemide 20 mg PO DAILY 90 days lidocaine 5% 1 patch topical DAILY 30 days polyethylene glycol 3350 (Miralax) 238 grams PO ONCE sacubitril-valsartan 49-51 mg (Entresto) 1 tab PO BID verapamil ER 120 mg PO DAILY Tobacco use date assessed: 05/13/24 Fall risk assessment: No Falls in past year Last assessed Fall Risk: 09/21/24 Dental Screening Dental Screen Date: 05/13/24 HPI HPI Comments History of Present Illness Details The patient is a 69-year-old male presenting for follow-up of heart failure management and medication review. The patient was hospitalized in July due to heart failure, where an echocardiogram revealed an ejection fraction of 28%. He has since been under the care of a pet counselor, who adjusted his medications, including the addition of Entresto, which is known to reduce mortality in patients with an ejection fraction below 40%. The patient reports improvement in symptoms, although he experienced fluid retention, which was evaluated with chest imaging in June and July. The radiologist recommended follow-up CT scans to monitor for residual fluid. He also reports erectile dysfunction, for which Sildenafil was considered but not approved due to potential cardiac risks. Patient declines urology referral. [facility] Medical History (Updated 09/21/24 @ 16:32 by Cheli Joshua MD) Hypertension Lumbar degenerative disc disease Compression fracture of L3 vertebra Surgical History No pertinent past surgical history Family History Mother No problems noted. Father No problems noted. Social History Household Members: Spouse Housing: House Do you presently have visiting nurse or other home services: No Alcohol intake: current Alcohol intake frequency: holidays/special occasions only Alcohol type: hard liquor Patient Tobacco Use Status: Never used Tobacco e-Cigarette/Vaping Use: Never Used Second Hand Smoke Exposure: No service: No Current occupational status: unemployed Cognitive needs: No Hearing needs: No Vision needs: Yes (glasses) Questionnaire PHQ-9 Over the last 2 weeks, how often have you been bothered by any of the following problems? 1. Little interest or pleasure in doing things: not at all 2. Feeling down, depressed, or hopeless: not at all 3. Trouble falling or staying asleep, or sleeping too much: not at all 4. Feeling tired or having little energy: not at all 5. Poor appetite or overeating: not at all 6. Feeling bad about yourself - or that you are a failure or have let yourself or your family down: not at all 7. Trouble concentrating on things, such as reading the newspaper or watching television: not at all 8. Moving or speaking so slowly that other people could have noticed. Or the opposite - being so fidgety or restless that you have been moving around a lot more than usual: not at all 9. Thoughts that you would be better off or of hurting yourself in some way: not at all Total score: 0 Depression Screening Interpretation: Negative Depression Screening Done: Yes 63086 - PHQ-9 Billing: Yes Source: Developed by Drs. Bud Lee, Alba Jc, Yeyo Gonzalez and colleagues, with an educational luis miguel from [employer]. Thrive Questionnaire Date Thrive assessed: 05/13/24 I am a: Patient What is your living situation today?: I have a steady place to live Within the past 12 months, did the food you bought not last and you didn't have the money to get more?: I choose not to answer this question Within the past 12 months, did you worry whether your food would run out before you got money to buy more?: I choose not to answer this question Do you have trouble paying for medicines?: No Do you have trouble getting transportation to medical appointments?: No Do you have trouble paying your heating and electricity bill?: No Do you have trouble taking care of your child, family member or friend?: No Do you have trouble with day-to-day activities such as bathing, preparing meals, shopping, managing finances, etc.?: No Are you currently unemployed and looking for a job?: No Are you interested in more education?: No Please select the resources that you would like help with: Food and [employer] Currently or been in a relationship where the following occur: No concerns reported THRIVE Score: 0 AUDIT C Alcohol Use Questionnaire (AUDIT-C) 1. How often do you have a drink containing alcohol?: 2-4 times a month 2. How many drinks containing alcohol do you have on a typical day when you are drinking?: 1 or 2 3. How often do you have six or more drinks on one occasion?: Never Total Score: 2 Score Reviewed/Action Taken: No URI-7 AMB Questionnaire URI-7 Date URI - 7 assessed: 05/13/24 Feeling nervous, anxious, or on edge: 0 = Not at all Not being able to stop or control worryin = Not at all Worrying too much about different things: 0 = Not at all Trouble relaxin = Not at all Being so restless that it is hard to sit still: 0 = Not at all Becoming easily annoyed or irritable: 0 = Not at all Feeling afraid as if something awful might happen: 0 = Not at all Total URI-7 score (0-4 normal; 5-9 mild; 10-14 moderate; 15-21 severe): 0 Source: Developed by Drs. Bud Lee, Alba Jc, Yeyo Gonzalez and colleagues, with an educational luis miguel from [employer]. URI-7 Assessment Billing URI-7 Assessment Tool: URI-7 Assessment 49761 Review of Systems Const All systems reviewed & are unremarkable except as noted in HPI and below Card Denies chest pain at rest, Denies chest pain with activity, Denies edema, Denies irregular heart rhythm, Denies claudication, Denies dyspnea, Denies dyspnea on exertion, Denies orthopnea, Denies paroxysmal nocturnal dyspnea and Denies slow heart rate Resp Denies cough, Denies dyspnea and Denies dyspnea on exertion GI Denies abdominal pain, Denies change in bowel habits, Denies excessive flatus, Denies nausea and Denies vomiting Denies urinary hesitancy, Denies urinary incontinence and Denies urinary urgency Musc Denies atrophy, Denies deformity and Denies limited range of motion Skin/Breast Denies bleeding lesions, Denies changing lesions and Denies rash Physical exam (Primary Care) Vital Signs: Last Vital Signs BP 138/90 H 09/21/24 16:12 BMI result Body Mass Index 26.5 Tobacco/Smoking Status: Tobacco use Status Tobacco use date assessed 05/13/24 09/21/24 16:17 Patient Tobacco Use Status Never used Tobacco 09/21/24 16:17 e-Cigarette/Vaping Use Never Used 09/21/24 16:17 PHQ-9: PHQ-9 Score PHQ-9: Total score 0 09/21/24 16:17 Depression Screening Interpretation: Negative Thrive Assessment: Date of Thrive Assessment Date Thrive assessed 05/13/24 09/21/24 16:17 Currently or been in a relationship where the following occur: No concerns reported Resp Effort & Inspection: normal respiratory effort Auscultation: clear to auscultation bilaterally Cardio Jugular venous distension: no JVD Rate: regular rate Rhythm: regular rhythm Heart sounds: S1 normal heart sound present and S2 normal heart sound present Extrem General: Yes full ROM Coding Level of Care Code Est Pt Level 4 (20339) Complex EM visit Add On G2211 Diagnoses Cardiomyopathy I42.9 Erectile dysfunction, unspecified erectile dysfunction type N52.9 Erectile dysfunction type: unspecified Hypertension, unspecified type I10 Hypertension type: unspecified Pleural effusion J90 Additional Codes PHQ-9 - 94127 - PHQ-9 Billing: Yes ([id number]) URI-7 Assessment Billing - URI-7 Assessment Tool: URI-7 Assessment 65592 ([id number]) Time Spent (min) 23 Assessment & Plan Assessment & Plan (1) Cardiomyopathy: Code(s): I42.9 - Cardiomyopathy, unspecified Category: Medical (2) Erectile dysfunction: Code(s): N52.9 - Male erectile dysfunction, unspecified Category: Medical Qualifiers: Erectile dysfunction type: unspecified Qualified Code(s): N52.9 - Male erectile dysfunction, unspecified (3) Hypertension: Code(s): I10 - Essential (primary) hypertension Category: Medical Qualifiers: Hypertension type: unspecified Qualified Code(s): I10 - Essential (primary) hypertension (4) Pleural effusion: Code(s): J90 - Pleural effusion, not elsewhere classified Category: Medical Plan The patient will continue with the current heart failure management plan, including the use of Entresto, which has shown to improve outcomes in patients with reduced ejection fraction. Follow-up imaging will be conducted to assess for any residual fluid accumulation as previously recommended by the radiologist. Erectile dysfunction management will be deferred due to potential cardiac risks associated with Sildenafil, and alternative treatments may be considered in consultation with a urologist. Patient was informed and verbally consented to the use of an ambient scribe for clinic note documentation during this visit. Orders: Orders XR chest 2V Today J90 - Pleural effusion, not elsewhere classified Referrals Open Access Screening Colonoscopy Referral Z12.12 - Encounter for screening for malignant neoplasm of rectum
[2024-09-21 16:12] VITALS: BP 138/90; BMI 26.5
== END 2024-09-21 16:34 | disposition home or self-care (01) ==
LOC: HO.HMCH 16:08
PROVIDERS: PCP Internal Medicine; Visit Provider Internal Medicine
DX: I42.9 Cardiomyopathy, unspecified (principal); N52.9 Male erectile dysfunction, unspecified; I10 Essential (primary) hypertension; J90 Pleural effusion, not elsewhere classified

== ENCOUNTER → 2024-09-21 16:07 | Outpatient (BNVA) | payer OTHER, SELFPAY | PROVIDERS: PCP Internal Medicine; Visit Provider Internal Medicine | DX: I11.0 Hypertensive heart disease with heart failure (principal); I50.9 Heart failure, unspecified; I42.9 Cardiomyopathy, unspecified; N52.9 Male erectile dysfunction, unspecified; J90 Pleural effusion, not elsewhere classified | CPT/HCPCS: 96127 ==

== ENCOUNTER 2024-10-04 09:29 | Outpatient (REF) | payer OTHER, SELFPAY ==
--- NOTE | ~2024-10-04 | US_ITS ---
CLINICAL HISTORY: R35.1 - Nocturia Retroperitoneal ultrasound Comparison: CT/SR - CT ABDOMEN PELVIS W IV CON - 06/21/24 10:21 EDT Findings: The kidneys are normal in echotexture bilaterally. No hydronephrosis. The right kidney is normal in size, measuring 9.6cm in length. There is a cyst in the lower pole measuring 1.2 x 1.1 x 1.0 cm. The left kidney is normal in size, measuring 11.0cm in length. There is a cyst in the midportion measuring 2.0 x 2.3 x 2.0 cm with thin internal septations and question of peripheral punctate calcification. The urinary bladder is unremarkable. Prevoid volume 408 mL. Postvoid volume 37.4 mL, within normal limits. Ureteral jets are visualized bilaterally. The prostate is the upper limit of normal size for the patient's age, measuring 4.3 x 4.0 x 4.2cm, volume 37.8 mL. Impression: Postvoid residual volume is within normal limits. Upper limit of normal sized prostate. This document has been electronically signed by: Carla Mcdermott MD on 10/04/2024 16:38:49
== END 2024-10-04 09:30 | disposition home or self-care (01) ==
LOC: HO.US 09:29
PROVIDERS: PCP Internal Medicine; Visit Provider Nurse Practitioner Family
DX: R35.1 Nocturia (principal)
CPT/HCPCS: 76770

== ENCOUNTER → 2024-10-04 09:31 | Outpatient (BNV) | payer OTHER, SELFPAY | PROVIDERS: PCP Internal Medicine; Visit Provider Radiology Diagnostic Radiology | DX: R35.1 Nocturia (principal) | CPT/HCPCS: 76770 ==

== ENCOUNTER → 2024-10-12 13:28 | Outpatient (REF) | payer OTHER, SELFPAY ==
--- NOTE | 2024-10-12 13:33 | CA_ITS ---
Transthoracic Echocardiogram Patient (Last, First, Middle): Abbe Pena, Gender: Male Date of : 1955 Age: 69 Procedure Date: 10/12/2024 Procedure Type: Transthoracic Echocardiogram Location: OP Height: 170.18 cm Weight: 76.66 kg BSA: 1.88 m2 Heart Rate: bpm BP: 148 / 82 mmHg Airplane Inspector: TO Referring MD: Kerri Perrin DIPLOMA MAKERDioni Symptoms: I42.9 - Cardiomyopathy, unspecified Study Quality: Fair, contrast Conclusions: - The left ventricular systolic function is moderate to severely decreased. The calculated ejection fraction is 32% by biplane method. Findings Procedure Information Contrast agent, definity, is being given per protocol without apparent complications. Left Ventricle Normal left ventricular cavity size. The left ventricular systolic function is moderate to severely decreased. The calculated ejection fraction is 32% by biplane method. There is severe global hypokinesis. Prominent trabeculae at the apex. Venous The inferior vena cava is normal in size and collapses greater than 50% with inspiration. Prior Study Comparison Changes noted compared to prior study dated: 06/22/2024. Slight improvement in LVEF. Measurements 2D Linear Measurements IVSd: 1.14 0.6-0.9/0.6-1.0 cm LVIDd: 5.67 3.9-5.3/4.2-5.9 cm LVIDd Index: 3.02 2.4-3.2/2.2-3.1 cm/m2 LVIDs: 4.60 2.0-3.6 cm LVPWd: 0.75 0.7-1.1 cm LV Mass: 260.32 67-162/88-224 g LV Mass Index: 138.47 43-95/49-115 g/m2 LVOT Diam: 2.20 3.0+(-)1.3 cm 2D Systolic Function EF 4C: 30.20 >55% EF 2C: 37.90 >55% EF BiP: 32.40 >55% LVOT LVOT Pk Harinder: 0.67 LVOT Mn Harinder: 0.41 LVOT VTI: 0.11 LVOT Pk Grad: 2.00 LVOT Mn Grad: 1.00 LVOT Diam: 2.20 LVOT Area: 3.80 Tricuspid Valve RA Press: 3.00 Updated in Other Vendor System with Status of Final Jero Dietz MD electronically signed on 10/13/2024 2:02:15 PM with status of Final
== END ==
LOC: HO.CARD 13:28
PROVIDERS: PCP Internal Medicine; Visit Provider Nurse Practitioner Family
DX: I42.9 Cardiomyopathy, unspecified (principal); I50.41 Acute combined systolic (congestive) and diastolic (congestive) heart failure
CPT/HCPCS: 93308; Q9957

== ENCOUNTER → 2024-10-12 13:33 | Outpatient (BNV) | payer OTHER, SELFPAY | PROVIDERS: PCP Internal Medicine; Visit Provider Internal Medicine | DX: I50.20 Unspecified systolic (congestive) heart failure (principal) | CPT/HCPCS: 93308 ==

== ENCOUNTER 2024-10-17 11:44 | Emergency (ER) | payer OTHER, SELFPAY ==
--- NOTE | ~2024-10-17 | XR_ITS ---
CLINICAL HISTORY: right shoulder pain Four views of the right shoulder. COMPARISON: None provided. FINDINGS: Proximal right humerus, the right scapula, and the right clavicle appear intact. Humeral head is appropriately seated in the glenoid. Small osteophytes present along the inferior margin of the glenoid. Mild hypertrophy of the right acromioclavicular joint. Visualized portions of the right lung are clear. IMPRESSION: 1. No radiographic evidence of acute injury to the right shoulder. 2. Mild acromioclavicular and glenohumeral joint degenerative changes. This document has been electronically signed by: Sonu Franks MD on 10/17/2024 14:07:27
[2024-10-17 11:46] VITALS: BP 182/86; PULSE 88; RESP 17; TEMP 36.3; O2SAT 95; BMI 26.8
--- NOTE | 2024-10-17 11:47 | ED_ITS ---
HPI - General Adult General Chief complaint: Extremity Injury, Upper Stated complaint: right shoulder pain Time Seen by Provider: 10/17/24 15:36 Source: patient Limitations: no limitations History of Present Illness HPI narrative: 69-year-old male presents for evaluation of right shoulder pain. Patient states approximately 2 weeks ago he was doing lifting with some weights when he began to have pain. It has been persistent. He denies any paresthesias or paralysis. No direct trauma. He is here for further evaluation. Patient also reports he has a swollen area that has been there for many years. In addition, patient has been out of several of his medications including his blood pressure medication for the past 3 days. He denies any chest pain or shortness of breath. Patient states there was a problem with the pharmacy being able to feel his medications. Related Data Home Medications ?Medication ?Instructions ?Recorded ?Confirmed verapamil 120 mg 24 hr 120 mg PO DAILY 09/20/24 capsule,extended release Previous Rx's ?Medication ?Instructions ?Recorded blood pressure monitor #1 ea 11/21/22 bisacodyl 5 mg tablet,delayed 20 mg (4 x 5 mg) PO ONCE 1 day #4 06/28/24 release (Dulcolax (bisacodyl)) tabs polyethylene glycol 3350 17 238 g PO ONCE #238 grams 0 06/28/24 gram/dose oral powder (Miralax) lidocaine 5 % topical patch 1 patch topical DAILY pain 30 days 07/29/24 #30 ea sacubitril 49 mg-valsartan 51 mg 1 tab PO BID #60 tabs 09/20/24 tablet (Entresto) furosemide 20 mg tablet 20 mg PO DAILY 90 days #90 t abs 10/04/24 carvedilol 6.25 mg tablet 6.25 mg PO BID 90 days #180 tabs 10/11/24 Allergies Allergy/AdvReac Type Severity Reaction Status Date / Time No Known Allergies Allergy Verified 10/17/24 11:48 Review of Systems Review of Systems: Yes all other systems are reviewed and are negative Musculoskeletal: Musculoskeletal: Denies deformity PMFSH Past Medical History Medical History Hypertension Lumbar degenerative disc disease Compression fracture of L3 vertebra Surgical History No pertinent past surgical history Family History Family History Mother No problems noted. Father No problems noted. Social History Social History Household Members: Spouse Housing: House Do you presently have visiting nurse or other home services: No Alcohol intake: current Alcohol intake frequency: holidays/special occasions only Alcohol type: hard liquor Patient Tobacco Use Status: Never used Tobacco e-Cigarette/Vaping Use: Never Used Second Hand Smoke Exposure: No Advance Directives: No Advance Directives Information Provided: Yes Do you have a plan to hurt others: No Plan service: No Current occupational status: unemployed Cognitive needs: No Hearing needs: No Vision needs: Yes (glasses) Physical Exam ED Vital Signs: Vital Signs - 24 hr 10/17/24 11:46 10/17/24 15:39 10/17/24 16:44 Temperature 97.4 F 97.6 F 97.6 F Pulse Rate 88 70 70 Respiratory Rate 17 15 15 Blood Pressure 182/86 H 174/102 H 174/102 H Pulse Oximetry 95 97 97 Oxygen Delivery Method Room Air Room Air Room Air BMI result Body Mass Index 26.8 Const General: cooperative, alert and awake Neck Other: No spinous, paraspinous or paravertebral tenderness. Resp Other: Lung sounds clear throughout Cardio Other: Regular rate and rhythm Back/Spine/Pelvis Other: Anatomic Pathology Assistant is 5/5 bilaterally. Full range of motion of all joints. Skin Other: Fairly well demarcated area underneath the soft tissue above the right clavicle. No tenderness. No fluctuance, no induration no redness or streaking. Course Course Course Narrative: Medical screening exam performed. Please refer to detailed history, exam, evaluation, and management by primary provider. Working out 2 weeks ago; gradual pain. No meds or other treatment. Medical Decision Making Medical Decision Making MDM Narrative: 69-year-old male with right-sided shoulder pain. Does not appear to be obvious injury from patient weight lifting. He has a known suspected lipoma to the right clavicular region. There was no secondary signs of infection. There was no obvious abscess. Limited bedside ultrasound does not reveal any fluid collection. Patient will be discharged home with surgical follow up. Patient expresses understanding of all discharge instructions and has no further questions at this time. Differential Diagnosis Differential Diagnoses: The differential diagnosis associated with the presentation includes Fracture Ligamentous strain Arthritis Muscle spasm Lipoma Abscess Cellulitis Discharge Plan Discharge Clinical Impression: Hypertension Lipoma Qualifiers: Lipoma location: neck Qualified Code(s): D17.0 - Benign lipomatous neoplasm of skin and subcutaneous tissue of head, face and neck Patient Disposition: Home, Self-Care Instructions: Chronic Hypertension (ED), Lipoma (ED) Additional Instructions: The area on the right shoulder appears to be a lipoma. This should be further evaluated by a surgical specialists. Follow up with surgical referral. As discussed, I spoke with your pharmacy. You are able to fill your carvedilol and furosemide but you will have to pay out of pocket. You can use a prescription card for a discount. Your insurance is requiring you to fill your prescriptions through a mail order pharmacy. Your Entresto is able to be filled through your insurance at your pharmacy today. Follow-up with your primary care provider. Call this week to schedule a follow- up appointment. Return to the emergency department if you have any worsening of symptoms, or any concerns. Get well soon! Prescriptions: No Action lidocaine 5 % adhesive patch,medicated 1 patch topical DAILY 30 Days Qty: 30 1RF furosemide 20 mg tablet 20 mg PO DAILY 90 Days Qty: 90 1RF carvedilol 6.25 mg tablet 6.25 mg PO BID 90 Days Qty: 180 1RF Rx Instructions: must administer with a meal/food (DME) blood pressure monitor Kit See Rx Instructions .Route Qty: 1 0RF Rx Instructions: As directed bisacodyl [Dulcolax (bisacodyl)] 5 mg tablet,delayed release (DR/EC) 20 mg PO ONCE 1 Days Qty: 4 0RF Rx Instructions: take 4 tabs at noon the day before your colonoscopy polyethylene glycol 3350 [Miralax] 17 gram/dose powder 238 g PO ONCE Qty: 238 0RF Rx Instructions: As directed by gastroenterology department at [facility] verapamil 120 mg capsule,ext rel. pellets 24 hr 120 mg PO DAILY Entresto 49-51 mg tablet 1 tab PO BID Qty: 60 5RF Rx Instructions: dose increased Referrals: Allie Trinh MD [Physician, General Surgery] Referral Note: Right shoulder lipoma Interventions: ED Discharge Assessment Last Done: 10/17/24 16:44 Discharge Date/Time: 10/17/24 16:46 Print Language: Vietnamese
[2024-10-17 15:39] VITALS: BP 174/102; PULSE 70; RESP 15; TEMP 36.4; O2SAT 97
[2024-10-17 16:44] VITALS: BP 174/102; PULSE 70; RESP 15; TEMP 36.4; O2SAT 97
== END 2024-10-17 16:46 | disposition home or self-care (01) ==
PROVIDERS: Emergency Provider Emergency Medicine; PCP Internal Medicine
DX: M25.511 Pain in right shoulder (principal); I10 Essential (primary) hypertension; D17.0 Benign lipomatous neoplasm of skin and subcutaneous tissue of head, face and neck
CPT/HCPCS: 73030; 99282; 99283

== ENCOUNTER → 2024-10-17 12:20 | Outpatient (BNV) | payer OTHER, SELFPAY | PROVIDERS: PCP Internal Medicine; Visit Provider Radiology Diagnostic Radiology | DX: M19.011 Primary osteoarthritis, right shoulder (principal) | CPT/HCPCS: 73030 ==

== ENCOUNTER 2024-10-18 09:11 | Outpatient (AMB) | payer OTHER, SELFPAY ==
--- NOTE | 2024-10-18 09:24 | A.OFFVIS_ITS ---
Intake Visit Reasons: 3m/sleep study Intake Note: Pt presents: 3MO FOLLOW UP Urology Meds:none BLOOD THINNERS: NONE PVR:0ml Tail Worker Required: Yes Tail Worker Services: Tail Worker Present Tail Worker Name: PATEL Ledbetter Accompanied by: Self / Same As Patient Allergies No Known Allergies Allergy (Verified 10/18/24 10:03) Medication List - Last Reconciled 10/18/24 by YOBANI Lovett blood pressure monitor As directed carvedilol 6.25 mg PO BID 90 days furosemide 20 mg PO DAILY 90 days lidocaine 5% 1 patch topical DAILY 30 days sacubitril-valsartan 24-26 mg (Entresto) 1 tab PO BID HPI Comments Details: Abbe is a 69-year-old Turkmen-speaking male patient of Dr. Bay. He has a past medical history of hypertension, lumbar degenerative disc disease, and compression fracture of L3. He presents to the office today for follow-up. Of note, patient was seen approximately 3 months ago as a new patient for nocturia at which time a retroperitoneal ultrasound and sleep study were ordered for further assessment evaluation. In discussion with the patient today he reports he did not wish to undergo sleep study as he does not feel episodes of nocturia have been bothersome. Recent retroperitoneal ultrasound results were reviewed 10/25 bilateral kidneys are normal in echotexture. No hydronephrosis noted bilaterally. Bilateral renal cysts. The urinary bladder is unremarkable. Prostate measures approximately 38 mLs. He reports episodes of nocturia he had been experiencing have improved and feels he is getting up less. We did d iscussed potential causes of nocturia as well as further treatment options. PSA 05/25 1.2. Kidneys and ureters and bladder are within normal limits. He otherwise denies urinary urgency, urinary frequency, incontinence, hematuria, dysuria, foul smelling urine, changes to urinary stream, flank pain, fever, and or chills. In office urinalysis results reviewed with the patient today. PVR 0 mL. We also discussed lifestyle modifications to assist with nocturia. All questions were answered. He otherwise offers no other issues or concerns at this time.[facility] Medical History Hypertension Lumbar degenerative disc disease Compression fracture of L3 vertebra Surgical History No pertinent past surgical history Family History Mother No problems noted. Father No problems noted. Social History Household Members: Spouse Housing: House Do you presently have visiting nurse or other home services: No Alcohol intake: current Alcohol intake frequency: holidays/special occasions only Alcohol type: hard liquor Patient Tobacco Use Status: Never used Tobacco e-Cigarette/Vaping Use: Never Used Second Hand Smoke Exposure: No service: No Current occupational status: unemployed Cognitive needs: No Hearing needs: No Vision needs: Yes (glasses) Review of Systems Const All systems reviewed & are unremarkable except as noted in HPI and below Physical Exam Const General: cooperative, healthy appearing, comfortable, no acute distress, well developed, alert and awake Orientation/consciousness: patient oriented x3 Limitations: language barrier HEENT Head: Yes normal to inspection, Yes normocephalic and Yes atraumatic Ears: hearing grossly normal bilaterally Eyes General: appearance normal, both eyes and all related structures Neck Neck: Yes normal visual inspection and Yes trachea midline Chest Chest palpation & inspection: normal inspection of the chest Resp Effort & Inspection: normal respiratory effort and able to speak in complete sentences Cardio Rate: regular rate GI Inspection: Yes normal to inspection General: Yes no CVA tenderness Back/Spine/Pelvis Back: no CVA tenderness Skin General skin exam: no rashes or lesions noted Neuro General: patient oriented x3 Extrem General: Yes normal to inspection Psych Appearance: grossly normal and well kempt Mental Status: mental status grossly normal Speech and movement: Normal speech and movement present and Clear speech present Affect: normal affect Attitude: cooperative Thought process: Normal thought process present Thought content: Normal thought content present Insight: Fair insight present (Psych) Judgement: Fair judgement present (Psych) Office Procedures Post Void Residual Post Residual Void Post Void Residual (PVR): 0 [id number] Void Residual by ultrasound Results AMB Urinalysis, Automated UA Leukoctes 0 Edil/uL Last Edit by NICHO Tello on 10/18/24 09:42 UA Nitrite Negative Last Edit by NICHO Tello on 10/18/24 09:42 UA Urobilinogen 3.5 mg/dL Last Edit by NICHO Tello on 10/18/24 09:4 2 UA Protein 15 mg/dL [facility] 10/18/[facility] 09:42 UA pH 6.0 Last Edit by Fang Ramos [facility] on 10/18/24 09:42 UA Blood 0 Mitchell/uL Last Edit by Fang Ramos [facility] on 10/18/24 09:42 UA Specific [place] 1.015 Last Edit by Fang Ramos [facility] on 10/18/24 09: 42 UA Ketone Negative Last Edit by Fang Ramos [facility] on 10/18/24 09:42 UA Bilirubin 0 mg/dL Last Edit by Fang Ramos [facility] on 10/18/24 09:42 UA Glucose 0 mg/dL Last Edit by Fang Ramos [facility] on 10/18/24 09:42 Results Reviewed Results Reviewed: Laboratory Last Values Urine pH (Auto) 6.0 10/18/24 09:40 Specific [place] (Auto) 1.015 10/18/24 09:40 Urine Protein (Auto) 15 mg/dL 10/18/24 09:40 Glucose (UA)(Auto) 0 mg/dL 10/18/24 09:40 Urine Ketones (Auto) Negative 10/18/24 09:40 Urine Blood (Auto) 0 Mitchell/uL 10/18/24 09:40 Urine Nitrite (Auto) Negative 10/18/24 09:40 Urine Bilirubin (Auto) 0 mg/dL 10/18/24 09:40 Urine Urobilinogen (Auto) 3.5 mg/dL 10/18/24 09:40 Leukocyte Esterase (Auto) 0 Edil/uL 10/18/24 09:40 Date of Service: 10/04/24 Procedure(s): US retroperitoneal comp Findings: The kidneys are normal in echotexture bilaterally. No hydronephrosis. The right kidney is normal in size, measuring 9.6cm in length. There is a cyst in the lower pole measuring 1.2 x 1.1 x 1.0 cm. The left kidney is normal in size, measuring 11.0cm in length. There is a cyst in the midportion measuring 2.0 x 2.3 x 2.0 cm with thin internal septations and question of peripheral punctate calcification. The urinary bladder is unremarkable. Prevoid volume 408 mL. Postvoid volume 37.4 mL, within normal limits. Ureteral jets are visualized bilaterally. The prostate is the upper limit of normal size for the patient's age, measuring 4.3 x 4.0 x 4.2cm, volume 37.8 mL. Impression: Postvoid residual volume is within normal limits. Upper limit of normal sized prostate. Assessment & Plan Assessment & Plan (1) Nocturia: Code(s): R35.1 - Nocturia Category: Medical (2) Renal cyst: Code(s): N28.1 - Cyst of kidney, acquired Category: Medical Plan In office urinalysis results reviewed with the patient today; as noted above. PVR 0 mL. Recent retroperitoneal ultrasound results reviewed with the patient today; as noted above. We discussed at length potential causes of nocturia as well as further treatment options and risks and benefits of these treatment options. Will continue with surveillance monitoring at this time as patient does not feel symptoms are bothersome. We discussed lifestyle modifications to assist with nocturia. All questions were answered. Follow-up in 6 months with PSA and PVR; or sooner with any issues, concerns, and or questions. Orders: Orders AMB Urinalysis Automated Today Z13.9 - Encounter for screening, unspecified AMB Post Void Residual by ultrasound Today R35.1 - Nocturia Prostate Specific Antigen 6 Months R35.1 - Nocturia Patient Instructions: The patient had an opportunity to ask questions regarding the treatment plan. All questions were answered. Physical exam, labs, and imaging were discussed and reviewed in detail. As well as risks, benefits, and discussion of treatment choices. No major barriers to understanding were identified. The patient expressed understanding and agreement with the above treatment plan. The patient was made aware they should contact our office by phone for worsening of their current condition, the appearance of new symptoms, or with any questions or concerns. Compliance is encouraged with any medications and follow up testing that is ordered. It is a privilege to be allowed the opportunity to participate in? your urological care.? Again, if you have any questions or concerns If you have any questions or concerns please do not hesitate to contact me. The office is [phone]. This note is constructed using voice recognition software. While every effort has been made to ensure accuracy assistant inventory manager errors may have been included. Yours sincerely, CARMEN Lovett- Coding Level of Care Code Est Pt Level 3 (30231) Complex EM visit Add On G2211 Diagnoses Nocturia R35.1 Renal cyst N28.1 CPT Codes Post Residual Void - PVR CPT Code: 92970-[id number] Void Residual by ultrasound ([id number])
== END 2024-10-18 10:13 | disposition home or self-care (01) ==
LOC: HO.HUSH 09:12
PROVIDERS: PCP Internal Medicine; Visit Provider Nurse Practitioner Family
DX: R35.1 Nocturia (principal); N28.1 Cyst of kidney, acquired; Z13.9 Encounter for screening, unspecified
CPT/HCPCS: 99213

== ENCOUNTER → 2024-10-18 09:11 | Outpatient (BNVA) | payer OTHER, SELFPAY | PROVIDERS: PCP Internal Medicine; Visit Provider Nurse Practitioner Family | DX: R35.1 Nocturia (principal); N28.1 Cyst of kidney, acquired | CPT/HCPCS: 51798; 81003 ==

== ENCOUNTER 2024-11-05 08:06 | Outpatient (AMB) | payer OTHER, SELFPAY ==
--- NOTE | 2024-11-05 08:17 | MHC.OFFVIS ---
Vital Signs 11/05/24 08:18 Height 5 ft 7 in Weight 174 lb BMI 27.2 BP 160/98 H Blood Pressure Location Lt brachial Position Sitting Respiration 16 Pulse 84 Pulse Source Pulse Oximeter Pulse Oximetry (%) 96 Oxygen Delivery Method Room Air Intake Visit Reasons: Right Shoulder Pain Cement Paver Required: No Allergies No Known Allergies Allergy (Verified 11/05/24 08:21) Medication List - Last Reconciled 11/05/24 by Leeann Dsouza LPN blood pressure monitor As directed carvedilol 6.25 mg PO BID 90 days furosemide 20 mg PO DAILY 90 days lidocaine 5% 1 patch topical DAILY 30 days sacubitril-valsartan 24-26 mg (Entresto) 1 tab PO BID 90 days valsartan 320 mg PO DAILY HPI Comments Details: The patient is a 69-year-old male presenting with right shoulder pain. The shoulder pain has been present for approximately four to five months, with no specific injury reported as the cause. The pain is described as muscular in nature and is exacerbated by movements such as raising the arm overhead and performing internal and external rotations. The patient has a history of mild degenerative changes in the acromioclavicular and glenohumeral joints, as evidenced by an x-ray performed on October 17. Additionally, there is a noted large lipoma on the right shoulder, for which the patient has been referred to a general surgeon but has not received an appointment yet. He reports lipoma for many years and recently has been increasing which affects his daily activities, movements and sleep due to its size and tenderness. The patient was hospitalized in July for heart failure, with an echocardiogram revealing a reduced ejection fraction of 28%. The patient follows up with a loan servicing specialist for ongoing management of this condition. - Onset: Approximately four to five months ago - Quality: Aching, sore, sharp, dull, hurting - Location: Right shoulder - Exacerbating factors: Raising arm overhead, internal and external rotations - Associated symptoms: Intermittent numbness and tingling in the arm, especially when sleeping on the right side - Affect: The pain impacts the patient's ability to perform certain movements with the right arm. - Analgesia: No specific pain medications mentioned; patient prefers to see a surgeon before considering injections. - Activities of Daily Living: Pain interferes with overhead activities and causes discomfort during sleep. [facility] Medical History Hypertension Lumbar degenerative disc disease Compression fracture of L3 vertebra Surgical History No pertinent past surgical history Family History Mother No problems noted. Father No problems noted. Social History Household Members: Spouse Housing: House Do you presently have visiting nurse or other home services: No Alcohol intake: current Alcohol intake frequency: holidays/special occasions only Alcohol type: hard liquor Patient Tobacco Use Status: Never used Tobacco e-Cigarette/Vaping Use: Never Used Second Hand Smoke Exposure: No service: No Current occupational status: unemployed Cognitive needs: No Hearing needs: No Vision needs: Yes (glasses) Review of Systems Const Details: - Musculoskeletal: Reports right shoulder pain and intermittent numbness/tingling in the arm, especially when sleeping on the right side. - Cardiovascular: Denies diabetes, chest pain or tightness, shortness of breaths, dizziness or dyspnea. All systems reviewed & are unremarkable except as noted in HPI and below Physical Exam Vital Signs: Last Vital Signs Pulse 84 11/05/24 08:18 Resp 16 11/05/24 08:18 BP 160/98 H 11/05/24 08:18 Pulse Ox 96 11/05/24 08:18 Oxygen Delivery Method Room Air 11/05/24 08:18 BMI result Body Mass Index 27.2 General: Appears afebrile. Alert and oriented. Mood and affect appropriate. Follows and participates in conversation appropriately. Respiratory effort is unlabored. No cough. Able to transition from sit to stand unassisted. Ambulates with bilaterally normal heel strike and toe off. Extrem Right upper extremity: shoulder/upper arm (Limited ROM. Pain with I/E rotations.) Details: tenderness Location: of the A-C joint and over the subacromial bursa, swelling (Large lipoma top of right shoulder.), axillary nerve sensory function normal and crepitus; no ecchymosis and no unusual warmth Shoulder/upper arm images:  1. Right shoulder lipoma Results Reviewed Results Reviewed: XR shoulder RT min 2V 10/17/24 CLINICAL HISTORY: right shoulder pain Four views of the right shoulder. COMPARISON: None provided. FINDINGS: Proximal right humerus, the right scapula, and the right clavicle appear intact. Humeral head is appropriately seated in the glenoid. Small osteophytes present along the inferior margin of the glenoid. Mild hypertrophy of the right acromioclavicular joint. Visualized portions of the right lung are clear. IMPRESSION: 1. No radiographic evidence of acute injury to the right shoulder. 2. Mild acromioclavicular and glenohumeral joint degenerative changes. Assessment & Plan Assessment & Plan (1) Shoulder pain: Comment: er PT and rx; 20 min reviwing chart eval pt and documenting Code(s): M25.519 - Pain in unspecified shoulder Category: Medical (2) Lipoma of right shoulder: Code(s): D17.21 - Benign lipomatous neoplasm of skin and subcutaneous tissue of right arm Category: Medical Plan The plan for the patient's right shoulder pain includes a referral to a General surgeon for evaluation of the lipoma, as well as discussing the option of a cortisone injection for pain relief. Patient is interested to undergo general surgery referral before deciding on further interventions such as cortisone injections or longer term procedures such as Sprint PNS trial or RFA. All questions and concerns have been answered and patient agreed with the treatment plan. Follow up as needed. Patient was informed and verbally consented to the use of an ambient scribe for clinic note documentation during this visit. Orders: Referrals General Surgery Referral D17.21 - Benign lipomatous neoplasm of skin and subcutaneous tissue of right arm, M25.519 - Pain in unspecified shoulder Patient Instructions: - Follow up with the general surgeon for evaluation of the right shoulder lipoma. - Consider scheduling a cortisone injection if shoulder pain persists after surgical consultation. Coding Level of Care Code Est Pt Level 4 (17642) Complex EM visit Add On G2211 Diagnoses Shoulder pain M25.519 Lipoma of right shoulder D17.21
[2024-11-05 08:18] VITALS: BP 160/98; PULSE 84; RESP 16; O2SAT 96; BMI 27.2
== END 2024-11-05 09:26 | disposition home or self-care (01) ==
LOC: HO.PMC 08:08
PROVIDERS: PCP Internal Medicine; Visit Provider Nurse Practitioner Family
DX: M25.519 Pain in unspecified shoulder (principal); D17.21 Benign lipomatous neoplasm of skin and subcutaneous tissue of right arm
CPT/HCPCS: 99214

== ENCOUNTER → 2024-11-05 08:06 | Outpatient (BNVA) | payer OTHER, SELFPAY | PROVIDERS: PCP Internal Medicine; Visit Provider Nurse Practitioner Family | DX: M25.511 Pain in right shoulder (principal); D17.21 Benign lipomatous neoplasm of skin and subcutaneous tissue of right arm; Z13.89 Encounter for screening for other disorder ==

== ENCOUNTER → 2024-11-15 08:03 | Outpatient (REF) | payer OTHER, SELFPAY ==
--- NOTE | ~2024-11-15 | NM_ITS ---
EXERCISE MYOCARDIAL PERFUSION STUDY INDICATION: Cardiomyopathy TECHNIQUE: The patient was brought in for an exercise perfusion study on 11/15/2024. Patient performed exercise as per Morgan protocol and was injected 25 mCi of sestamibi once target heart rate was achieved. Images were obtained using the SPECT gamma camera interlaced with the gating device. Images were obtained in supine position. Resting perfusion study was performed on 11/16/2024. Patient was administered 25 mCi of sestamibi intravenously at rest. Images were then obtained in supine position. Total DLP 79 mGy-cm. Images were processed with the software and compared side to side in short axis, horizontal long axis and vertical long axis views. FINDINGS: Raw aquisition reviewed. The stress perfusion study showed diminished tracer uptake along the inferior wall. There is improvement with CT attenuation correction suggestive of diaphragmatic attenuation artifact. The gated study shows globally reduced LV systolic function with calculated LVEF of 38%. LV cavity is mildly dilated in size. The gated study shows globally reduced wall thickening and contraction of segments. Resting study shows decreased tracer uptake along the inferior wall. There is improvement with CT attenuation correction which would suggest components of diaphragmatic attenuation artifact. Gating at rest reveals globally reduced wall motion with ejection fraction at 34%. The findings are consistent with fixed inferior perfusion defect. No clear reversible defects. NM/NM cardiolite stress test IMPRESSION: 1. Myocardial perfusion imaging study shows no clear evidence of ischemia or infarction. Fixed inferior defect could be from diaphragmatic attenuation artifact. 2. Gated LVEF is 38% during stress and 34% during rest. 3. Transient ischemic dilatation not present. EKG component of the test reported separately. Electronically signed by: Jero Dietz MD 11/17/2024 03:48 PM EDT
--- NOTE | 2024-11-15 08:06 | CA_ITS ---
Acquisition Time: 2024-11-15 08:11:30 Total Exercise Time: 00:07:46 Test Indications: CARDIOMYOPATHY CHF Medications: CARVEDILOL VERAPAMIL FUROSEMIDE ENTRESTO VERAPAMIL Protocol: KAY Max HR: 137 BPM 90% of Pred: 152 BPM Max BP: 220/110 mmHG Max Work Load: 9.7 METS Exercise stress test with exercise 7 mins 46 secs of Kay Protocol, achieving 85% MPHR, with reports of SOB, no chest pain, with frequent PACs and atrial runs longest 20 beats, with hypeertensive response to exercise - max BP 220/110. With baseline T wave inversion suggesting possible ischemia, unchanged with exercise. In recovery, breathing returned to baseline. Took his meds and BP improved to baseline. Nuclear images pending. Test reviewed with Dr. Dietz. Referred By: Kerri Perrin Electronically Signed By: Priyank Tadeo
== END ==
LOC: HO.CARD 08:03
PROVIDERS: PCP Internal Medicine; Visit Provider Nurse Practitioner Family
DX: I50.41 Acute combined systolic (congestive) and diastolic (congestive) heart failure (principal); I42.9 Cardiomyopathy, unspecified
CPT/HCPCS: 78452; 93017; A9500

== ENCOUNTER → 2024-11-15 08:06 | Outpatient (BNV) | payer OTHER, SELFPAY | PROVIDERS: PCP Internal Medicine | DX: I49.1 Atrial premature depolarization (principal); R06.02 Shortness of breath | CPT/HCPCS: 78452; 93016; 93018 ==

== ENCOUNTER 2024-11-22 14:17 | Outpatient (AMB) | payer OTHER, SELFPAY ==
--- NOTE | 2024-11-22 14:26 | MHC.OFFVIS ---
Vital Signs 11/22/24 14:37 Height 5 ft 7 in Weight 174 lb 2.643 oz BMI 27.3 BP 160/82 H Blood Pressure Location Lt brachial Position Sitting Intake Visit Reasons: Rt. shoulder lipoma Intake Note: Patient is seen in office for evaluation of a right shoulder lipoma. Pt c/o: onset yrs, increase in size, pain all over the arm, discomfort, denies redness, discharge, or other concerns Ultimate Hoops Trainer Required: No Accompanied by: Self / Same As Patient Allergies No Known Allergies Allergy (Verified 11/22/24 14:36) Medication List - Last Reconciled 11/22/24 by Ed Guzman MD blood pressure monitor As directed carvedilol 6.25 mg PO BID 90 days furosemide 20 mg PO DAILY 90 days lidocaine 5% 1 patch topical DAILY 30 days sacubitril-valsartan 24-26 mg (Entresto) 1 tab PO BID 90 days valsartan 320 mg PO DAILY HPI Comments Details: 69-year-old male patient presenting for evaluation of a large lipoma in the right supraclavicular fossa. He reports that this has been present for many years but continues to increase in size and now seems to be extending towards the neck. He denies any pain at the site of the lipoma but does have occasional pain extending into the right arm. He denies any previous biopsies. A previous ultrasound performed on 01/23/2024 revealed a 4.8 x 1.7 x 7.7 cm right anterior shoulder supraclavicular lipoma which was encapsulated and benign-appearing. He feels that has increased in size since then and is requesting excision.. He also reports a lump in the posterior left shoulder and neck which also causes discomfort. He is requesting excision of this lesion as well. [facility] Medical History Hypertension Lumbar degenerative disc disease Compression fracture of L3 vertebra Surgical History No pertinent past surgical history Family History Mother No problems noted. Father No problems noted. Social History Household Members: Spouse Housing: House Do you presently have visiting nurse or other home services: No Alcohol intake: current Alcohol intake frequency: holidays/special occasions only Alcohol type: hard liquor Patient Tobacco Use Status: Never used Tobacco e-Cigarette/Vaping Use: Never Used Second Hand Smoke Exposure: No service: No Current occupational status: unemployed Cognitive needs: No Hearing needs: No Vision needs: Yes (glasses) Review of Systems Const All systems reviewed & are unremarkable except as noted in HPI and below Physical Exam Vital Signs: Last Vital Signs BP 160/82 H 11/22/24 14:37 BMI result Body Mass Index 27.3 Const General: cooperative and no acute distress Nutritional Appearance: well nourished Orientation/consciousness: patient oriented x3 Limitations: no limitations HEENT Head: Yes normocephalic and Yes atraumatic Ears: hearing grossly normal bilaterally Neck Neck images:  1. 10 x 7 cm soft tissue mass within the supraclavicular fossa, mobile within the subcutaneous tissue and no overlying skin changes. No similar lesion noted in the left supraclavicular fossa Resp Effort & Inspection: normal respiratory effort, no audible wheezes, no cough and no respiratory distress Cardio Jugular venous distension: no JVD GI Inspection: Yes normal to inspection Back/Spine/Pelvis Back/spine/pelvis image:  1. Sebaceous cyst measuring approximately 5 cm in diameter. Lesion is somewhat fluctuant but there was no erythema. Central punctum is noted. Skin Other: Warm, dry, no rash Neuro General: patient oriented x3 Extrem General: Yes no clubbing, cyanosis or edema Assessment & Plan Assessment & Plan (1) Lipoma of right shoulder: Code(s): D17.21 - Benign lipomatous neoplasm of skin and subcutaneous tissue of right arm Category: Medical (2) Sebaceous cyst: Code(s): L72.3 - Sebaceous cyst Category: Medical Plan 69-year-old male patient presenting with a large lipoma located in the right supraclavicular fossa and sebaceous cyst located in the left upper back. The patient has requested excision of the 2 lesions. After discussion of the procedure, risks, and alternatives, he consents to an excision of the right supraclavicular lipoma and left upper back sebaceous cyst. This will be scheduled as a short-stay surgery. Coding Level of Care Code New Pt Level 4 (51601) Diagnoses Lipoma of right shoulder D17.21 Sebaceous cyst L72.3
[2024-11-22 14:37] VITALS: BP 160/82; BMI 27.3
== END 2024-11-22 15:10 | disposition home or self-care (01) ==
LOC: HO.HGS 14:18
PROVIDERS: PCP Internal Medicine; Visit Provider Surgery
DX: D17.21 Benign lipomatous neoplasm of skin and subcutaneous tissue of right arm (principal); L72.3 Sebaceous cyst
CPT/HCPCS: 99204

== ENCOUNTER 2024-12-06 12:58 | Outpatient (AMB) | payer OTHER, SELFPAY ==
[2024-12-06 13:38] VITALS: BP 120/62; PULSE 76; BMI 27.3
--- NOTE | 2024-12-06 13:38 | MHC.OFFVIS ---
Vital Signs 12/06/24 13:38 Height 5 ft 7 in Weight 174 lb 2.643 oz BMI 27.3 BP 120/62 Blood Pressure Location Lt brachial Position Sitting Pulse 76 Pulse Source Pulse Oximeter Intake Visit Reasons: 3 mth/Preop lipoma removal Cutter Apprentice Hand Required: Yes Cutter Apprentice Hand Services: Cutter Apprentice Hand Offered & Declined Allergies No Known Allergies Allergy (Verified 11/22/24 14:36) Medication List - Last Reconciled 12/06/24 by Jero Dietz MD blood pressure monitor As directed carvedilol 6.25 mg PO BID 90 days furosemide 20 mg PO DAILY 90 days lidocaine 5% 1 patch topical DAILY 30 days sacubitril-valsartan 24-26 mg (Entresto) 1 tab PO BID 90 days HPI Comments Details: Abbe returns for follow-up. He was admitted to hospital few months back for shortness of breath and treated as congestive heart failure. At that time, blood pressure was quite high. Since then, medications have been optimized. He states he is feeling fine for the most part. He really does not have any symptoms like chest pains or shortness of breath or leg swelling or any other concerns. He states he is doing good. He has got a lipoma and needs surgery for the same. [facility] Medical History (Updated 12/06/24 @ 15:44 by Jero Dietz MD) Chronic combined systolic and diastolic CHF (congestive heart failure) Hypertension Lumbar degenerative disc disease Compression fracture of L3 vertebra Surgical History No pertinent past surgical history Family History Mother No problems noted. Father No problems noted. Social History Household Members: Spouse Housing: House Do you presently have visiting nurse or other home services: No Alcohol intake: current Alcohol intake frequency: holidays/special occasions only Alcohol type: hard liquor Patient Tobacco Use Status: Never used Tobacco e-Cigarette/Vaping Use: Never Used Second Hand Smoke Exposure: No service: No Current occupational status: unemployed Cognitive needs: No Hearing needs: No Vision needs: Yes (glasses) Review of Systems Const Denies weakness ENT Denies dizziness Card Denies chest pain, Denies chest pain with activity, Denies syncope, Denies rapid heart rate, Denies pedal edema, Denies edema, Denies leg edema, Denies lightheadedness, Denies palpitations, Denies dyspnea, Denies dyspnea on exertion and Denies orthopnea Resp Denies cough, Denies dyspnea and Denies dyspnea on exertion GI Denies hematochezia and Denies change in stool character Musc Denies abnormal gait, Denies muscle cramps, Denies muscle weakness, Denies numbness, Denies radiating pain into limb and Denies tingling Neuro Denies abnormal gait, Denies dizziness, Denies syncope, Denies numbness, Denies tingling and Denies weakness Endo Denies palpitations Physical Exam Vital Signs: Last Vital Signs Pulse 76 12/06/24 13:38 BP 120/62 12/06/24 13:38 BMI result Body Mass Index 27.3 Const General: comfortable and no acute distress Orientation/consciousness: patient oriented x3 HEENT Other: Unremarkable Head: Yes normal to inspection Neck Neck: Yes normal visual inspection Chest Chest palpation & inspection: normal inspection of the chest Resp Auscultation: clear to auscultation bilaterally Cardio Palpation: normal PMI Heart sounds: S1 normal heart sound present, S2 normal heart sound present, no gallops, no murmurs and no rubs GI Palpation (GI): Soft to palpation Back/Spine/Pelvis Other: unremarkable Skin General skin exam: no rashes or lesions noted Neuro General: patient oriented x3 Extrem General: Yes normal to inspection Psych Mental Status: mental status grossly normal Assessment & Plan Assessment & Plan (1) Chronic combined systolic and diastolic CHF (congestive heart failure): Code(s): I50.42 - Chronic combined systolic (congestive) and diastolic (congestive) heart failure Category: Medical Plan: In the initial echocardiogram, LVEF was 28%. Repeat study with 32%. Myocardial perfusion imaging study without any clear ischemia or infarction. Cardiomyopathy could be all related to hypertension. Meds will need to be further optimized. Continue carvedilol. We will go up on the Entresto dose. Add Jardiance and spironolactone. Continue diuretic. Check labs few days after med changes. We discussed about this today. (2) Hypertension: Code(s): I10 - Essential (primary) hypertension Category: Medical Qualifiers: Hypertension type: unspecified Qualified Code(s): I10 - Essential (primary) hypertension Plan: Med changes above should help. We will need to be followed and further adjusted. (3) Preop cardiovascular exam: Code(s): Z01.810 - Encounter for preprocedural cardiovascular examination Category: Medical Plan: Patient absolutely wants the lipoma removed and does not want to wait any longer. Intermediate cardiac risk. Avoid excessive IV fluids that could precipitate congestive heart failure. Continue usual cardiac medications without interruption. Orders: Orders Basic Metabolic Panel 1 Week I50.41 - Acute combined systolic (congestive) and diastolic (congestive) heart failure NT Pro B Type Natriuretic Pept 2 Weeks I42.9 - Cardiomyopathy, unspecified Medications: New sacubitril-valsartan 49-51 mg (Entresto) 1 tab PO BID 180 tabs 1RF 90 days I42.9 - Cardiomyopathy, unspecified empagliflozin (Jardiance) 10 mg PO DAILY 90 tabs 1RF I42.9 - Cardiomyopathy, unspecified spironolactone 25 mg PO DAILY 90 tabs 1RF I42.9 - Cardiomyopathy, unspecified Discontinued sacubitril-valsartan 24-26 mg (Entresto) Discontinued Reason: Doctor's Order 1 tab PO BID 90 days 180 tabs 1RF Coding Level of Care Code Est Pt Level 4 (66566) Complex EM visit Add On G2211 Diagnoses Chronic combined systolic and diastolic CHF (congestive heart failure) I50.42 Hypertension, unspecified type I10 Hypertension type: unspecified Preop cardiovascular exam Z01.810
== END 2024-12-06 14:10 | disposition home or self-care (01) ==
LOC: HO.HCS 12:59
PROVIDERS: PCP Internal Medicine; Visit Provider Internal Medicine
DX: I50.42 Chronic combined systolic (congestive) and diastolic (congestive) heart failure (principal); I10 Essential (primary) hypertension; Z01.810 Encounter for preprocedural cardiovascular examination
CPT/HCPCS: 99214

== ENCOUNTER 2024-12-14 14:18 | Outpatient (AMB) | payer OTHER, SELFPAY ==
[2024-12-14 14:22] VITALS: BP 120/84; PULSE 70; TEMP 36.1; O2SAT 98; BMI 26.8
--- NOTE | 2024-12-14 14:22 | MHC.PC.OV ---
Vital Signs 12/14/24 14:22 Height 5 ft 7 in Weight 171 lb 4 oz BMI 26.8 BP 120/84 Blood Pressure Location Lt brachial Position Sitting Pulse 70 Pulse Source Pulse Oximeter Temp 97.0 F Temp Source Temporal Artery Scan Pulse Oximetry (%) 98 Oxygen Delivery Method Room Air Intake Visit Reasons: Pain in groin Allergies No Known Allergies Allergy (Verified 12/14/24 14:24) Tobacco use date assessed: 12/14/24 Fall risk assessment: No Falls in past year Last assessed Fall Risk: 12/14/24 Dental Screening Dental Screen Date: 12/14/24 Did you have a dental visit in the last 12 months?: Yes Did you have a dental problem in the last 6 months where you did not have access to dental care?: No Was dental information given to patient?: Patient has dentist HPI HPI Comments History of Present Illness Details The patient is a 69-year-old male presenting with right-sided abdominal pain and pressure. The pain began approximately one week ago and is described as a pressure sensation that worsens with coughing and straining. The patient denies any fever or chills accompanying the pain. The patient reports that the discomfort is more pronounced when he delays urination. There is no history of hernia or similar issues in the past, and the patient has not been using any medication for the pain. [facility] Medical History Chronic combined systolic and diastolic CHF (congestive heart failure) Hypertension Lumbar degenerative disc disease Compression fracture of L3 vertebra Surgical History No pertinent past surgical history Family History Mother No problems noted. Father No problems noted. Social History Household Members: Spouse Housing: House Do you presently have visiting nurse or other home services: No Alcohol intake: current Alcohol intake frequency: holidays/special occasions only Alcohol type: hard liquor Patient Tobacco Use Status: Never used Tobacco e-Cigarette/Vaping Use: Never Used Second Hand Smoke Exposure: No service: No Current occupational status: unemployed Cognitive needs: No Hearing needs: No Vision needs: Yes (glasses) Questionnaire PHQ-9 Over the last 2 weeks, how often have you been bothered by any of the following problems? 1. Little interest or pleasure in doing things: not at all 2. Feeling down, depressed, or hopeless: not at all 3. Trouble falling or staying asleep, or sleeping too much: not at all 4. Feeling tired or having little energy: not at all 5. Poor appetite or overeating: not at all 6. Feeling bad about yourself - or that you are a failure or have let yourself or your family down: not at all 7. Trouble concentrating on things, such as reading the newspaper or watching television: not at all 8. Moving or speaking so slowly that other people could have noticed. Or the opposite - being so fidgety or restless that you have been moving around a lot more than usual: not at all 9. Thoughts that you would be better off or of hurting yourself in some way: not at all Total score: 0 Depression Screening Interpretation: Negative Depression Screening Done: Yes Source: Developed by Drs. Bud Lee, Alba Jc, Yeyo Gonzalez and colleagues, with an educational luis miguel from [employer]. Thrive Questionnaire Date Thrive assessed: 09/21/24 I am a: Patient What is your living situation today?: I have a steady place to live Within the past 12 months, did the food you bought not last and you didn't have the money to get more?: I choose not to answer this question Within the past 12 months, did you worry whether your food would run out before you got money to buy more?: I choose not to answer this question Do you have trouble paying for medicines?: No Do you have trouble getting transportation to medical appointments?: No Do you have trouble paying your heating and electricity bill?: No Do you have trouble taking care of your child, family member or friend?: No Do you have trouble with day-to-day activities such as bathing, preparing meals, shopping, managing finances, etc.?: No Are you currently unemployed and looking for a job?: No Are you interested in more education?: No Currently or been in a relationship where the following occur: No concerns reported THRIVE Score: 0 AUDIT C Alcohol Use Questionnaire (AUDIT-C) 1. How often do you have a drink containing alcohol?: 2-4 times a month 2. How many drinks containing alcohol do you have on a typical day when you are drinking?: 1 or 2 3. How often do you have six or more drinks on one occasion?: Never Total Score: 2 URI-7 AMB Questionnaire URI-7 Date URI - 7 assessed: 05/13/24 Feeling nervous, anxious, or on edge: 0 = Not at all Not being able to stop or control worryin = Not at all Worrying too much about different things: 0 = Not at all Trouble relaxin = Not at all Being so restless that it is hard to sit still: 0 = Not at all Becoming easily annoyed or irritable: 0 = Not at all Feeling afraid as if something awful might happen: 0 = Not at all Total URI-7 score (0-4 normal; 5-9 mild; 10-14 moderate; 15-21 severe): 0 Source: Developed by Drs. Bud Lee, Alba Jc, Yeyo Gonzalez and colleagues, with an educational luis miguel from [employer]. Review of Systems Const Details: Not done. Physical exam (Primary Care) Vital Signs: Last Vital Signs Temp 97.0 F 12/14/24 14:22 Pulse 70 12/14/24 14:22 BP 120/84 12/14/24 14:22 Pulse Ox 98 12/14/24 14:22 Oxygen Delivery Method Room Air 12/14/24 14:22 BMI result Body Mass Index 26.8 Tobacco/Smoking Status: Tobacco use Status Tobacco use date assessed 12/14/24 12/14/24 14:27 Patient Tobacco Use Status Never used Tobacco 12/14/24 14:27 e-Cigarette/Vaping Use Never Used 12/14/24 14:27 PHQ-9: PHQ-9 Score PHQ-9: Total score 0 12/14/24 14:27 Depression Screening Interpretation: Negative Thrive Assessment: Date of Thrive Assessment Date Thrive assessed 09/21/24 12/14/24 14:27 Currently or been in a relationship where the following occur: No concerns reported Const Other: Pertinent findings are in BOLD GENERAL APPEARANCE NAD, activity normal for age, well developed/ well nourished, no cyanosis, pallor, or diaphoresis. EYES lids/conjunctiva normal. EARS/NOSE/THROAT Mucous membranes moist, nares normal, lips/teeth normal uvula midline without oral pharyngeal erythema, exudate or swelling TMs normal bilaterally. No lymphangitis/lymphedema. HEAD/NECK normocephalic atraumatic, no facial trauma, neck is supple. RESPIRATORY respiratory effort normal, speaks in full sentences, no tripod position, no accessory muscle use. Lungs clear to auscultation without rhonchi, wheezes, rales CARDIAC Regular rate and rhythm, no edema. ABDOMINAL Soft, ND/NT. No evidence of fluid wave. No pulsatile masses on exam, rebound tenderness, Dubose sign or pain over Mcburney's point. No Hernia palpated. MUSCLES/EXTREMITIES No abnormal range of motion, no swelling. SKIN Warm, pink and dry. No rashes, dermatoses, petechiae or lesions. NEUROLOGICAL Speech is clear and appropriate. Normal level of consciousness. Gait and coordination are normal. 5/5 strength in all extremities. PSYCH Normal mood and affect. Judgement/competence is appropriate Coding Level of Care Code Est Pt Level 3 (38262) Diagnoses Groin lump R19.09 Time Spent (min) 20 Assessment & Plan Assessment & Plan (1) Groin lump: Code(s): R19.09 - Other intra-abdominal and pelvic swelling, mass and lump Category: Medical Plan: - CT scan recommended to further assess the abdominal area and confirm diagnosis - Follow-up appointment scheduled in [address] scan results and determine further management Plan I discussed with the patient the possibility of a hernia, noting that the symptoms are not definitive for a diagnosis without imaging confirmation. We agreed on obtaining a CT scan to better understand the condition and plan further management based on the results. I explained the CT scan procedure. Orders: Orders CT abdomen pelvis wo IV con Today R19.09 - Other intra-abdominal and pelvic swelling, mass and lump
== END 2024-12-14 14:42 | disposition home or self-care (01) ==
LOC: HO.HMCH 14:19
PROVIDERS: PCP Internal Medicine; Visit Provider Internal Medicine
DX: R19.09 Other intra-abdominal and pelvic swelling, mass and lump (principal)

== ENCOUNTER 2024-12-30 05:54 | Day surgery (SDC) | payer OTHER, SELFPAY ==
--- NOTE | 2024-12-28 09:36 | P.CONAN_ITS ---
Documented by User: Malathi Lainez NP 12/28/24 10:11 HPI - Anesthesia Eval Consult details Narrative: 69yo M for Excision RIGHT Supraclavicular Lipoma, Excision Posterior Neck Sebaceous Cyst Cardiac optimized. [place] [facility] for Chronic combined systolic and diastolic CHF, HTN. At 12/06/24 office visit, deemed intermed risk for elective surgery. In regards to CHF: In the initial echocardiogram, LVEF was 28%. Repeat study with 32%. Myocardial perfusion imaging study without any clear ischemia or infarction. Cardiomyopathy could be all related to hypertension. Meds will need to be further optimized. Continue carvedilol. We will go up on the Entresto dose. Add Jardiance and spironolactone. Continue diuretic. Case reviewed with HEIDI CRONIN Active Problems Active Problems: All Active Problems Groin lump (Acute) Chronic combined systolic and diastolic CHF (congestive heart failure) (Acute) Sebaceous cyst (Acute) Lipoma of right shoulder (Acute) Renal cyst (Acute) Pleural effusion (Acute) Preop cardiovascular exam (Acute) Hospital discharge follow-up (Acute) Cardiomyopathy (Acute) Snoring (Acute) Elevated serum creatinine (Acute) Hypertension (Acute) Acute combined systolic and diastolic congestive heart failure (Acute) Hypertensive emergency (Acute) New onset of congestive heart failure (Acute) Sacroiliac joint pain (Acute) Left knee pain (Acute) Lumbosacral spondylosis (Acute) Lumbar degenerative disc disease (Acute) Abnormal EKG (Acute) Nocturia (Acute) Cyst of right clavicle (Acute) Lumbar pain (Acute) Syphilis (Acute) Erectile dysfunction (Acute) Physical exam (Acute) Bleeding hemorrhoids (Acute) Rectal bleeding (Acute) Hip pain (Acute) Shoulder pain (Acute) Past Medical History Medical History Low back pain Chronic combined systolic and diastolic CHF (congestive heart failure) Hypertension Lumbar degenerative disc disease Compression fracture of L3 vertebra Family History Family History Mother No problems noted. Father No problems noted. Surgical History Surgical History History of dental surgery Hx of colonoscopy Social History Social History Household Members: Spouse Housing: House Are you a primary personal care attendant to a significant other at home: No Do you presently have visiting nurse or other home services: No Alcohol intake: current Alcohol intake frequency: holidays/special occasions only Alcohol type: hard liquor Patient Tobacco Use Status: Never used Tobacco e-Cigarette/Vaping Use: Never Used Second Hand Smoke Exposure: No Use of substances other than those prescribed or required for medical reasons: No Have you been hit, kicked, punched, or otherwise hurt by someone within the past year? If so, by whom?: No Are you DNR?: No Advance Directives: No Advance Directives Information Provided: Yes Advance Directives on File: Yes Advance Directives Date on File: 06/21/24 service: No Current occupational status: unemployed Cognitive needs: No Hearing needs: No Vision needs: Yes (glasses) Meds Allergies Allergy/AdvReac Type Severity Reaction Status Date / Time No Known Allergies Allergy Verified 12/30/24 06:14 Home Medications ?Medication ?Instructions ?Recorded ?Confirmed ?Last Taken ?Type lidocaine 5 % topical patch 1 patch topical DAILY PRN pain 12/28/24 12/28/24 Unknown History sacubitril 24 mg-valsartan 26 mg 1 tab PO BID 12/28/24 12/28/24 Unknown History tablet Documented by User: Sheela Chairez MD 12/30/24 08:05 [facility] Past Medical History Medical History Low back pain Chronic combined systolic and diastolic CHF (congestive heart failure) Hypertension Lumbar degenerative disc disease Compression fracture of L3 vertebra Family History Family History Mother No problems noted. Father No problems noted. Family history of problems with anesthesia: No Surgical History Surgical History History of dental surgery Hx of colonoscopy History of Problems with Anesthesia: No Social History Social History Household Members: Spouse Housing: House Are you a primary personal care attendant to a significant other at home: No Do you presently have visiting nurse or other home services: No Alcohol intake: current Alcohol intake frequency: holidays/special occasions only Alcohol type: hard liquor Patient Tobacco Use Status: Never used Tobacco e-Cigarette/Vaping Use: Never Used Second Hand Smoke Exposure: No Use of substances other than those prescribed or required for medical reasons: No Have you been hit, kicked, punched, or otherwise hurt by someone within the past year? If so, by whom?: No Are you DNR?: No Advance Directives: No Advance Directives Information Provided: Yes Advance Directives on File: Yes Advance Directives Date on File: 06/21/24 service: No Current occupational status: unemployed Cognitive needs: No Hearing needs: No Vision needs: Yes (glasses) Meds Allergies Allergy/AdvReac Type Severity Reaction Status Date / Time No Known Allergies Allergy Verified 12/30/24 06:14 Home Medications ?Medication ?Instructions ?Recorded ?Confirmed ?Last Taken ?Type lidocaine 5 % topical patch 1 patch topical DAILY PRN pain 12/28/24 12/28/24 Unknown History sacubitril 24 mg-valsartan 26 mg 1 tab PO BID 12/28/24 12/28/24 Unknown History tablet Exam Airway Mallampati Class: II TM Dist: >3cm Neck ROM: Limited Heart: rrr Lungs: cta Assessment and Plan Assessment Anesthesia Assessment: Anesthesia Plan Discussed and Chart Reviewed Final Anesthetic Review Family History of Problems with Anesthesia: No History of Problems with Anesthesia: No NPO: Yes ASA Class: III Final Preanesthetic Review: No Changes in Pt Med Stat (pt stopped bp meds 3 days , b.p initially high but sstaablised with borderline high normal values after one hour observation in pre op. opted to proceed and observe in pacu prior to discharge.) Patient Risk: Intermediate Procedure Risk: Low Anesthetic Plan Anesthetic Plan: GA and Agree w/ Assess. and Plan Disposition: Standard PACU
[2024-12-30] VITALS (7 sets, daily range): BP systolic 149–198; BP diastolic 90–127; PULSE 76–89; RESP 12–16; TEMP 36.1–36.5; O2SAT 94–98; BMI 26.9
--- NOTE | 2024-12-30 06:45 | PC.NURSE ---
1st bp on right 203/125, and repeat 198/127, 188/115 on left. manual on right 182/112 and left 182/114. surgeon and anesthesia made aware. bps coming down 178/105, 165/102. holding off on proceeding with surgery. will be evaluated when mds arrive to see if he needs meds and if bp comes down in order to proceed with surgery.
--- NOTE | 2024-12-30 07:25 | MHC.SHP ---
Pre-Procedural Eval Section A - 24 Hr Update-Section A only Date of Service: 12/30/24 The patient is an INPATIENT: No Changes since office visit: Yes Patient answered all questions; No Cold of Flu in the past 2 weeks, No New Medical Problems and No Changes in Medication The patient has been examined within 24 hours of the surgical procedure. The History & Physical has been completed within 30 days and I have reviewed it.: Yes Section B - Complete if H&P > 30 days Chief Complaint: Benign lipomatous neoplasm of skin.sebaceous cyst Details of Present Illness: no change in symptoms Relevant Family History (Specify if Yes): No Relevant Social History: None Present Medications: see Short Stay Collaborative assessment Medical History: Significant History (Hypertension) History of Previous Operations: No relevant previous surgery Allergies: Allergies Allergy/AdvReac Type Severity Reaction Status Date / Time No Known Allergies Allergy Verified 12/30/24 06:14 Review of Systems Sugical H&P ROS: Negative: Constitution, Cardiovascular, Respiratory, Neurological, Psychiatric, Hem-Onc, Allergic/Immunologic, Gastrointestinal, Genitourinary, Musculoskeletal, Integumentary and Endocrine Exam Surgical H&P Exam: Normal: HEENT, Normal: Heart, Normal: Lungs, Normal: Extremities, Normal: Abdomen and Normal: Skin Plan Diagnosis/Plan: Unchanged I have reviewed the history and physical and performed a pertinent physical examination on my patient. No changes have occurred unless specified. Time Spent With Patient Time: Total time managing care of this patient today ____ minutes.
--- NOTE | 2024-12-30 07:33 | PC.NURSE ---
late entry 0720 bps down to 165/99 and 155/96--[facility] at [facility] and ok'd to proceed.
--- NOTE | 2024-12-30 09:07 | W.PM.OPN ---
Operative Note Operative Note Date of Service: 12/30/24 Narrative: Preoperative diagnosis: Right supraclavicular lipoma, left posterior shoulder epidermal inclusion cyst Postoperative diagnosis: Same Procedure: Excision of right supraclavicular lipoma, left posterior shoulder epidermal inclusion cyst Surgeon: Ed Guzman MD Vending Machine Operator: Lloyd Garcia PA-C Anesthesia: General LMA Indications for procedure: 69-year-old male patient presenting with a large lipoma measuring approximately 8 cm in the right supraclavicular region. The patient also has a left posterior shoulder epidermal inclusion cyst measuring approximately 2 cm in diameter. Operative findings: Large multiloculated lipoma right supraclavicular region., epidermal inclusion cyst left upper back 2 cm Specimen: Lipoma right supraclavicular region, epidermal inclusion cyst left posterior shoulder Estimated blood loss: 10 mL Complications: None Procedure details: Patient was brought to the OR placed in a supine position. After administering general anesthesia the patient's right neck and supraclavicular region was prepped with ChloraPrep and draped in a sterile fashion. A surgical time-out was called the consent confirmed. Patient received preoperative antibiotics and Venodyne boots were in place. Local anesthesia consisting of 0.5% Sensorcaine plain was then infiltrated directly over the lipoma. Incision was then made with a scalpel and carried out through subcutaneous tissue. Combination of sharp and blunt dissection was then used to dissect a multiloculated lipoma from the subcutaneous tissue. Several additional lipomas were noted separate from the initial large lipoma were also included in the specimen. Hemostasis was assured using electrocautery and free ties of 3-0 Polysorb. The wounds were irrigated with saline solution and suctioned dry. Deep subcutaneous tissue was reapproximated using interrupted 3-0 Polysorb sutures. Dermis was closed using interrupted 3-0 Polysorb sutures. Skin was then closed using a running subcuticular 4-0 Polysorb suture. Steri-Strips, 4 x 4 gauze and Tegaderm were then applied. The patient was then rotated to a right lateral decubitus position. The area of the epidermal inclusion cyst was then prepped with Betadine and draped in a sterile fashion. Local anesthesia was then infiltrated circumferentially around the cyst. An elliptical incision oriented longitudinally was then created with a scalpel. This was carried out through subcutaneous tissue around the cyst wall. Electrocautery was used to dissect the cyst off the subcutaneous tissue. Hemostasis was assured using electrocautery. The cyst was passed off the table sent to pathology for further examination. Wounds were irrigated with saline solution and suctioned dry. Skin was then closed using interrupted 3-0 Polysorb sutures in dermis followed by 3-0 nylon sutures. Sterile dressings consisting of 4 x 4 gauze and Tegaderm were then applied. The patient tolerated the procedure well. Sponge, instrument, and needle counts reported as correct. The patient was transferred to PACU in stable condition.
== END 2024-12-30 10:55 | disposition home or self-care (01) ==
PROVIDERS: PCP Internal Medicine; Visit Provider Surgery
PROC: (CPT 21931; principal; 2024-12-30 07:30)
PROC: (CPT 21931; 2024-12-30 07:30)
DX: D17.0 Benign lipomatous neoplasm of skin and subcutaneous tissue of head, face and neck (principal); L72.0 Epidermal cyst; I10 Essential (primary) hypertension; M51.369 Other intervertebral disc degeneration, lumbar region without mention of lumbar back pain or lower extremity pain; Z87.311 Personal history of (healed) other pathological fracture; Z79.899 Other long term (current) drug therapy; Z56.0 Unemployment, unspecified
CPT/HCPCS: 21931; 11402; 88304; J0131; J0690; J1100; J2003; J2250; J2405; J2704; J2795; J3010

== ENCOUNTER → 2024-12-30 05:54 | Outpatient (BNV) | payer OTHER, SELFPAY | PROVIDERS: PCP Internal Medicine; Visit Provider Surgery | DX: D17.0 Benign lipomatous neoplasm of skin and subcutaneous tissue of head, face and neck (principal); L72.0 Epidermal cyst | CPT/HCPCS: 11402; 11426 ==

== ENCOUNTER 2025-01-06 10:31 | Outpatient (AMB) | payer OTHER, SELFPAY ==
--- NOTE | 2025-01-06 10:37 | A.OFFVIS_ITS ---
Vital Signs 01/06/25 10:44 Height 5 ft 7 in Weight 173 lb BMI 27.1 BP 141/89 H Blood Pressure Location Lt brachial Position Sitting Pulse 77 Intake Visit Reasons: S/P excision Rt supra lipoma/post neck cyst Intake Note: Patient is seen in office for post op assessment post excision of lipoma x2. Pt c/o: denies any cocerns, healing as expected Application Specialist Required: No Accompanied by: Self / Same As Patient Allergies No Known Allergies Allergy (Verified 01/06/25 10:44) HPI HPI S/P excision Rt supra lipoma/post neck cyst: Details: Mr. Pena is here for a wound check and follow up. He underwent excision of right supraclavicular lipoma, left posterior shoulder epidermal inclusion cyst on 12/30/[address] Guzman in the OR. He tolerated the procedure well. He had minimal pain following excision. He is tolerating a solid diet and moving his bowels. He notes some mild itching at the excision sites now but has no other complaints. [facility] Medical History Low back pain Chronic combined systolic and diastolic CHF (congestive heart failure) Hypertension Lumbar degenerative disc disease Compression fracture of L3 vertebra Surgical History Hx of surgical procedure (12/30/24) History of dental surgery Hx of colonoscopy Family History Mother No problems noted. Father No problems noted. Social History Household Members: Spouse Housing: House Are you a primary manager urgent care to a significant other at home: No Do you presently have visiting nurse or other home services: No Alcohol intake: current Alcohol intake frequency: holidays/special occasions only Alcohol type: hard liquor Patient Tobacco Use Status: Never used Tobacco e-Cigarette/Vaping Use: Never Used Second Hand Smoke Exposure: No Advance Directives Date on File: 06/21/24 service: No Current occupational status: unemployed Cognitive needs: No Hearing needs: No Vision needs: Yes (glasses) Review of Systems Const Denies chills and Denies fever(s) Card Denies chest pain and Denies dyspnea Resp Denies dyspnea GI Denies nausea and Denies vomiting Skin/Breast Reports as per HPI, Denies erythema and Denies rash Physical Exam Vital Signs: Last Vital Signs Pulse 77 01/06/25 10:44 BP 141/89 H 01/06/25 10:44 BMI result Body Mass Index 27.1 Const General: comfortable, no acute distress, well developed and alert Orientation/consciousness: patient oriented x3 Resp Effort & Inspection: normal respiratory effort and able to speak in complete sentences Skin Other: right supraclavicular incision well healed and approximated, mild edema surrounding, no erythema or induration posterior neck excision site with nylon sutures in place with good approximation of the skin edges, all sutures removed uneventfully, mild erythema localized just to where sutures had been in place with very mild induration Neuro General: patient oriented x3 and moves all extremities Results Reviewed Results Reviewed: A. Soft tissue, right supraclavicular, excision: Mature lobulated adipose tissue consistent with lipoma. B. Skin, posterior neck, excision: Epidermal inclusion cyst. Assessment & Plan Assessment & Plan (1) Lipoma of right shoulder: Code(s): D17.21 - Benign lipomatous neoplasm of skin and subcutaneous tissue of right arm Category: Medical (2) Epidermal inclusion cyst: Code(s): L72.0 - Epidermal cyst Category: Medical Plan 69 year old male s/p excision of right supraclavicular lipoma, left posterior shoulder epidermal inclusion cyst on 12/30/24. He tolerated the procedure well. The right supraclavicular incision and posterior neck excision sites are healing well without evidence of infection. His sutures of the posterior neck site were removed today uneventfully. Pathology reviewed. He has no questions. He can follow up in the office as needed if he develops concerns. Coding Level of Care Code Global (45340) Diagnoses Lipoma of right shoulder D17.21 Epidermal inclusion cyst L72.0
[2025-01-06 10:44] VITALS: BP 141/89; PULSE 77; BMI 27.1
--- OUTSIDE RECORDS SUMMARY | 2025-01-06 12:31 | XMS_ITS ---
Author Organization Unknown ENCOUNTERS Encounter Performer Location Date Diagnosis Diagnosis Status Outpatient [facility] [address] [place] [address] [id number] [place] Emergency [facility] [address] [place] [address] [id number] GEOVANNA Pre Admit [facility] [address] [place] [address] [id number] Emergency [facility] [address] [place] [address] [id number] GEOVANNA Pre Admit Generic ED Physician [facility] [address] [place] [address] [id number] Inpatient [facility] [address] [place] [address] [id number] [place] Emergency [facility] [address] [place] [address] [id number] AIP Pre Admit Generic ED Physician [facility] [address] [place] [address] [id number] *Note: Encounters from your own facility or health system may be excluded. Allergies, Adverse Reactions, Alerts Allergen Type Severity Identification Date Medications Name Date Quantity Days Supplied GPI Number
== END 2025-01-06 10:57 | disposition home or self-care (01) ==
LOC: HO.HGS 10:31
PROVIDERS: PCP Internal Medicine; Visit Provider Physician Assistant Surgical
DX: D17.21 Benign lipomatous neoplasm of skin and subcutaneous tissue of right arm (principal); L72.0 Epidermal cyst
CPT/HCPCS: 99024

== ENCOUNTER 2025-01-11 09:08 | Outpatient (REF) | payer OTHER, SELFPAY ==
--- NOTE | ~2025-01-11 | CT_ITS ---
EXAMINATION: CT ABDOMEN AND PELVIS WITHOUT CONTRAST CLINICAL INFORMATION: Intra-abdominal and pelvic swelling, mass and lump. COMPARISON: CT abdomen and pelvis with IV contrast 06/21/2024. TECHNIQUE: Multidetector volumetric imaging was performed from the superior aspect of the liver through the pubic symphysis. Sagittal and coronal reformatted images were obtained on the technologist's workstation. This CT examination was performed using dose optimization techniques as appropriate, variously including the following: *Automated exposure control *Adjustment of mA and/or kV according to patient size (this includes techniques or standardized protocols for targeted exams where dose is matched to indication/reason for exam; i.e. extremities or head) *Use of iterative reconstruction technique DLP: 459 FINDINGS: LUNG BASES: The lung bases are clear. The heart size is normal. Suspect small hiatal hernia. LIVER, GALLBLADDER, AND BILIARY TREE: The liver is normal in size, shape, and attenuation. No focal hepatic lesion or biliary ductal dilatation is present. The gallbladder is unremarkable with no evidence of radiopaque gallstones, gallbladder wall thickening, or obvious pericholecystic inflammatory changes. PANCREAS: Unremarkable. SPLEEN: Unremarkable. ADRENAL GLANDS: Unremarkable. KIDNEYS AND URETERS: The kidneys are normal in size, shape, and attenuation. No hydronephrosis, hydroureter, or calculi seen. No perinephric stranding. There is 8 mm hypodensity in the lower pole right kidney. There is mild bilateral perinephric stranding. BLADDER: Unremarkable. GASTROINTESTINAL TRACT: There is scattered stool, diverticuli and gas seen throughout the colon without distention or diverticulitis. The small bowel loops are normal caliber. Appendix is normal caliber. No free air, inflammatory process or free fluid seen. The stomach is distended recently ingested food. ABDOMINAL WALL: Small lumbrical hernia containing fat is noted. LYMPH NODES: Normal. VASCULAR: With herniation of small bowel loop in the right proximal inguinal canal containing intraluminal fluid and mild wall thickening. No fat stranding seen. The left inguinal canal is unremarkable. PELVIC VISCERA: The prostate gland is normal size. No free fluid. No abnormal pelvic lymphadenopathy. OSSEOUS STRUCTURES: No mild degenerative disc changes with vacuum disc phenomena L5-S1 and L4-5 and L2-3 disc levels. Old mid L3 vertebral body fracture . CT/CT abdomen pelvis wo IV con IMPRESSION: Moderate constipation without any acute process. Colonic diverticulosis without diverticulitis. Probable cyst lower pole right kidney. Fleischner guidelines were followed. Electronically signed by: Rob Bloom MD 01/11/2025 11:45 AM MING
--- OUTSIDE RECORDS SUMMARY | 2025-01-11 09:49 | XMS_ITS ---
Author Organization Unknown ENCOUNTERS Encounter Performer Location Date Diagnosis Diagnosis Status Outpatient [facility] [address] [place] [address] [id number] [place] Emergency [facility] [address] [place] [address] [id number] GEOVANNA Pre Admit [facility] [address] [place] [address] [id number] Emergency [facility] [address] [place] [address] [id number] GEOVANNA Pre Admit Generic ED Physician [facility] [address] [place] [address] [id number] Inpatient [facility] [address] [place] [address] [id number] [place] Emergency [facility] [address] [place] [address] [id number] AIP Pre Admit Generic ED Physician [facility] [address] [place] [address] [id number] *Note: Encounters from your own facility or health system may be excluded. Allergies, Adverse Reactions, Alerts Allergen Type Severity Identification Date Medications Name Date Quantity Days Supplied GPI Number
== END 2025-01-11 09:09 | disposition home or self-care (01) ==
LOC: HO.CT 09:08
PROVIDERS: PCP Internal Medicine; Visit Provider Internal Medicine
DX: R19.09 Other intra-abdominal and pelvic swelling, mass and lump (principal)
CPT/HCPCS: 74176

== ENCOUNTER → 2025-01-11 09:10 | Outpatient (BNV) | payer OTHER, SELFPAY | PROVIDERS: PCP Internal Medicine; Visit Provider Radiology Diagnostic Radiology | DX: K59.00 Constipation, unspecified (principal); K57.30 Diverticulosis of large intestine without perforation or abscess without bleeding | CPT/HCPCS: 74176 ==

== ENCOUNTER 2025-01-18 14:13 | Outpatient (AMB) | payer OTHER, SELFPAY ==
--- NOTE | 2025-01-18 14:28 | A.OFFPC_ITS ---
Vital Signs 01/18/25 14:29 Height 5 ft 7 in Weight 174 lb BMI 27.2 BP 140/82 H Blood Pressure Location Lt brachial Position Sitting Pulse 60 Pulse Source Pulse Oximeter Temp 97.1 F Temp Source Temporal Artery Scan Pulse Oximetry (%) 97 Oxygen Delivery Method Room Air Intake Visit Reasons: Annual Exam Intake Note: Patient is here today for a physical. Putty And Caulking Supervisor Required: No Medical Office Specialist: Present Accompanied by: Spouse Allergies No Known Allergies Allergy (Verified 01/18/25 14:43) Medication List - Last Reconciled 01/18/25 by Cheli Joshua MD blood pressure monitor As directed carvedilol 6.25 mg PO BID 90 days furosemide 20 mg PO DAILY 90 days lidocaine 5% 1 patch topical DAILY PRN oxycodone 5 mg PO Q6H PRN sacubitril-valsartan 24-26 mg 1 tab PO BID Tobacco use date assessed: 01/18/25 Fall risk assessment: No Falls in past year Last assessed Fall Risk: 01/18/25 Dental Screening Dental Screen Date: 12/14/24 HPI HPI Comments History of Present Illness Details The patient is a 69-year-old male presenting for a physical examination. He has combined systolic and diastolic heart failure follow by cardiology. Declines flu vaccine. A CT scan of the abdomen performed this month revealed a small umbilical hernia, constipation, and a benign right kidney cyst which requires no further follow- up. The patient reports persistent right shoulder pain. His medical history is significant for hypertension, for which he takes carvedilol and Entresto and follows with cardiology. He denies any chest pain, shortness of breath, or changes in bowel or bladder habits. A colonoscopy is scheduled for next month. [facility] Medical History (Updated 01/18/25 @ 14:58 by Cheli Joshua MD) Low back pain Chronic combined systolic and diastolic CHF (congestive heart failure) Hypertension Lumbar degenerative disc disease Compression fracture of L3 vertebra Surgical History Hx of surgical procedure (12/30/24) History of dental surgery Hx of colonoscopy Family History Mother No problems noted. Father No problems noted. Social History Household Members: Spouse Housing: House Are you a primary after school caregiver to a significant other at home: No Do you presently have visiting nurse or other home services: No Alcohol intake: current Alcohol intake frequency: holidays/special occasions only Alcohol type: hard liquor Patient Tobacco Use Status: Never used Tobacco e-Cigarette/Vaping Use: Never Used Second Hand Smoke Exposure: No Advance Directives Date on File: 06/21/24 service: No Current occupational status: unemployed Cognitive needs: No Hearing needs: No Vision needs: Yes (glasses) Questionnaire Thrive Questionnaire Date Thrive assessed: 09/21/24 I am a: Patient What is your living situation today?: I have a steady place to live Within the past 12 months, did the food you bought not last and you didn't have the money to get more?: I choose not to answer this question Within the past 12 months, did you worry whether your food would run out before you got money to buy more?: I choose not to answer this question Do you have trouble paying for medicines?: No Do you have trouble getting transportation to medical appointments?: No Do you have trouble paying your heating and electricity bill?: No Do you have trouble taking care of your child, family member or friend?: No Do you have trouble with day-to-day activities such as bathing, preparing meals, shopping, managing finances, etc.?: No Are you currently unemployed and looking for a job?: No Are you interested in more education?: No Currently or been in a relationship where the following occur: No concerns reported THRIVE Score: 0 URI-7 AMB Questionnaire URI-7 Date URI - 7 assessed: 05/13/24 Source: Developed by Drs. Bud Lee, Alba Jc, Yeyo Gonzalez and colleagues, with an educational luis miguel from [employer]. Review of Systems Const All systems reviewed & are unremarkable except as noted in HPI and below Card Denies chest pain at rest, Denies chest pain with activity, Denies edema, Denies irregular heart rhythm, Denies claudication, Denies dyspnea, Denies dyspnea on exertion, Denies orthopnea, Denies paroxysmal nocturnal dyspnea and Denies slow heart rate Resp Denies cough, Denies dyspnea and Denies dyspnea on exertion Physical exam (Primary Care) Vital Signs: Last Vital Signs Temp 97.1 F 01/18/25 14:29 Pulse 60 01/18/25 14:29 BP 140/82 H 01/18/25 14:29 Pulse Ox 97 01/18/25 14:29 Oxygen Delivery Method Room Air 01/18/25 14:29 BMI result Body Mass Index 27.2 Tobacco/Smoking Status: Tobacco use Status Tobacco use date assessed 01/18/25 01/18/25 14:33 Patient Tobacco Use Status Never used Tobacco 01/18/25 14:33 e-Cigarette/Vaping Use Never Used 01/18/25 14:33 Thrive Assessment: Date of Thrive Assessment Date Thrive assessed 09/21/24 01/18/25 14:33 Currently or been in a relationship where the following occur: No concerns reported HENMT Head: Yes normal to inspection, Yes normocephalic and Yes atraumatic Ears: external ears normal Eyes General: appearance normal, both eyes and all related structures Eyelids: Yes eyelids normal Conjunctivae: conjunctivae normal Neck Neck: Yes normal visual inspection and Yes supple Resp Effort & Inspection: normal respiratory effort Auscultation: clear to auscultation bilaterally Cardio Jugular venous distension: no JVD Rate: regular rate Rhythm: regular rhythm Heart sounds: S1 normal heart sound present and S2 normal heart sound present GI Inspection: Yes normal to inspection Palpation (GI): Soft to palpation and nontender Auscultation: normal bowel sounds Skin General skin exam: no rashes or lesions noted Neuro General: no focal motor deficits Extrem General: Yes full ROM Psych Appearance: grossly normal Coding Level of Care Code Est Pt Level 3 (14953) Est Pt Prev Care >65y(78515) Diagnoses Physical exam Z00.00 Right shoulder pain M25.511 Umbilical hernia K42.9 Chronic combined systolic and diastolic CHF (congestive heart failure) I50.42 Time Spent (min) 32 Assessment & Plan Assessment & Plan (1) Physical exam: Code(s): Z00.00 - Encounter for general adult medical examination without abnormal findings Category: Medical (2) Right shoulder pain: Code(s): M25.511 - Pain in right shoulder Category: Medical (3) Umbilical hernia: Code(s): K42.9 - Umbilical hernia without obstruction or gangrene Category: Medical (4) Chronic combined systolic and diastolic CHF (congestive heart failure): Code(s): I50.42 - Chronic combined systolic (congestive) and diastolic (congestive) heart failure Category: Medical Plan Plan 1. Physical exam Repeat in a year. 2. Umbilical Hernia A small umbilical hernia was identified on a recent CT scan of the abdomen. A referral will be placed to General Surgery for evaluation as per the patient's request. 3. Arthralgia Of Right Shoulder The patient continues to experience right shoulder pain. He will be referred to Orthopedics for further evaluation as requested. Orders: Referrals Orthopedics Referral M25.511 - Pain in right shoulder General Surgery Referral K42.9 - Umbilical hernia without obstruction or gangrene
[2025-01-18 14:29] VITALS: BP 140/82; PULSE 60; TEMP 36.2; O2SAT 97; BMI 27.2
--- OUTSIDE RECORDS SUMMARY | 2025-01-19 10:17 | XMS_ITS ---
Author Organization Unknown ENCOUNTERS Encounter Performer Location Date Diagnosis Diagnosis Status Outpatient [facility] [address] [place] [address] [id number] [place] Emergency [facility] [address] [place] [address] [id number] GEOVANNA Pre Admit [facility] [address] [place] [address] [id number] Emergency [facility] [address] [place] [address] [id number] GEOVANNA Pre Admit Generic ED Physician [facility] [address] [place] [id number] [facility] [address] [place] [address] [id number] GE[place] Emergency [facility] [address] [place] [address] [id number] AIP Pre Admit Generic ED Physician [facility] [address] [place] [address] [id number] *Note: Encounters from your own facility or health system may be excluded. Allergies, Adverse Reactions, Alerts Allergen Type Severity Identification Date Medications Name Date Quantity Days Supplied GPI Number
== END 2025-01-18 14:59 | disposition home or self-care (01) ==
LOC: HO.HMCH 14:14
PROVIDERS: PCP Internal Medicine; Visit Provider Internal Medicine
DX: Z00.00 Encounter for general adult medical examination without abnormal findings (principal); M25.511 Pain in right shoulder; K42.9 Umbilical hernia without obstruction or gangrene; I50.42 Chronic combined systolic (congestive) and diastolic (congestive) heart failure

== ENCOUNTER 2025-02-03 07:14 | Emergency (ER) | payer OTHER, SELFPAY ==
--- NOTE | ~2025-02-03 | CT_ITS ---
EXAMINATION: CT ABDOMEN AND PELVIS WITH CONTRAST CLINICAL INFORMATION: Right inguinal hernia, pain. COMPARISON: January 11, 2025 TECHNIQUE: Multidetector volumetric images were obtained from the superior aspect of the liver through the pubic symphysis following administration 85 mL of Omnipaque 350 intravenous contrast. Sagittal and coronal reformatted images were obtained on the technologist's workstation. Oral contrast: No This CT examination was performed using dose optimization techniques as appropriate, variously including the following: *Automated exposure control *Adjustment of mA and/or kV according to patient size (this includes techniques or standardized protocols for targeted exams where dose is matched to indication/reason for exam; i.e. extremities or head) *Use of iterative reconstruction technique. DLP: 692 mGy-cm FINDINGS: LUNG BASES: No acute airspace disease or discrete pulmonary nodule. LIVER, GALLBLADDER, AND BILIARY TREE: Liver measures 15 cm. No enhancing mass. Main portal veins, hepatic veins and intrahepatic portion of the IVC are patent. Gallbladder is fluid-filled nondistended. No pericholecystic fluid collection or gallbladder wall thickening. PANCREAS: No enhancing mass. No cystic lesion. No main pancreatic ductal dilatation. No peripancreatic fluid collection. SPLEEN: 11 cm. No solid or cystic mass. ADRENAL GLANDS: Soft tissue fullness without nodular lesions. KIDNEYS AND URETERS: Bilateral renal cysts. No hydronephrosis. No gross nephrolithiasis. No enhancing renal mass. BLADDER: Fluid-filled. GASTROINTESTINAL TRACT: Appendix is normal. Abundant stool, large intestine. Gas and fluid-filled mildly prominent small bowel loops no gross intestinal wall thickening. No pneumatosis intestinalis. Fecal material in the ileal loops. No ascites. No pneumoperitoneum. Scattered diverticula, left hemicolon. No pericolonic edema pattern. Hiatal hernia, moderate volume. ABDOMINAL WALL: Small fat-containing umbilical hernia. No gross inguinal hernia. There is prominent pampiniform plexus in the right inguinal canal with edema pattern. LYMPH NODES: No specific prominent less than 1 cm lymph nodes, retroperitoneum and mesenteric. VASCULAR: Mixed plaques throughout the aorta and iliac arteries without gross aneurysm or dissection. Calcified plaques in the femoral arteries. The heart appears enlarged, all 4 chambers. PELVIC VISCERA: Not enlarged prostate gland. OSSEOUS STRUCTURES: Old compression fracture deformity representing 70% volume loss at L3. Multilevel spondylosis from L2-3 to L5-S1. Grade 1 retrolisthesis L3-4 on a degenerative basis. Bilateral neuroforamina stenosis from L2-3 to L5-S1. Sclerosis and the sacroiliac joints. No lytic or blastic lesions. No gross acute fracture. CT/CT abdomen pelvis w IV con IMPRESSION: Concerning mild enteritis with the questionable regional ileus. Internal hernia without obstructive pattern cannot be entirely excluded. Concerning/probable right varicocele. Diverticular disease without diverticulitis, left hemicolon. Fat-containing umbilical hernia. Hiatal hernia, moderate volume. Atherosclerosis disease. Fleischner guidelines were followed. Electronically signed by: Armadno Andrews MD 02/03/2025 09:02 AM MING
[2025-02-03 07:16] VITALS: BP 176/92; PULSE 75; RESP 16; O2SAT 97; BMI 26.6
--- NOTE | 2025-02-03 07:29 | ED.GENADULT ---
HPI - General Adult General Chief complaint: General Medical Stated complaint: R side hernia Time Seen by Provider: 02/03/25 07:24 Source: patient Mode of arrival: ambulatory Limitations: no limitations History of Present Illness ED Provider: KHUSHBOO GONZALES PA-C HPI narrative: 69 year old male with PMHx significant for HTN and CHF presents to the ED today for evaluation of right inguinal pain. Patient has a known R inguinal hernia and has been following with general surgery for repair. Reports missing his follow up appointment last week. Last night he developed severe, constant pain to the inguinal area rated an 11/10. Pain does not radiate. Has not tried anything for pain. States that urinating relieves the pain. Denies abdominal pain, N/V/D, constipation, urinary symptoms, chest pain, or SOB. Related Data Home Medications ?Medication ?Instructions ?Recorded ?Confirmed lidocaine 5 % topical patch 1 patch topical DAILY PRN pain 12/28/24 02/04/25 sacubitril 24 mg-valsartan 26 mg 1 tab PO BID 12/28/24 02/04/25 tablet Previous Rx's ?Medication ?Instructions ?Recorded carvedilol 6.25 mg tablet 6.25 mg PO BID 90 days #180 tabs 11/02/24 furosemide 20 mg tablet 20 mg PO DAILY 90 days #90 tabs 11/02/24 blood pressure monitor #1 ea 12/06/24 oxycodone 5 mg tablet 5 mg PO Q6H PRN pain (scale score 12/30/24 7-10) #15 tabs Allergies Allergy/AdvReac Type Severity Reaction Status Date / Time No Known Allergies Allergy Verified 02/03/25 07:18 Review of Systems Review of Systems: Yes all other systems are reviewed and are negative [facility] Past Medical History Attestation statement: The following information was validated with the patient. Source: old records reviewed and nursing notes reviewed Medical History Low back pain Chronic combined systolic and diastolic CHF (congestive heart failure) Hypertension Lumbar degenerative disc disease Compression fracture of L3 vertebra Surgical History Hx of surgical procedure (12/30/24) History of dental surgery Hx of colonoscopy Family History Family History Mother No problems noted. Father No problems noted. Social History Social History Household Members: Spouse Housing: House Are you a primary health care facilities inspector to a significant other at home: No Do you presently have visiting nurse or other home services: No Alcohol intake: current Alcohol intake frequency: holidays/special occasions only Alcohol type: hard liquor Patient Tobacco Use Status: Never used Tobacco e-Cigarette/Vaping Use: Never Used Second Hand Smoke Exposure: No Advance Directives Date on File: 06/21/24 service: No Current occupational status: unemployed Cognitive needs: No Hearing needs: No Vision needs: Yes (glasses) Physical Exam ED Vital Signs: Vital Signs - 24 hr 02/03/25 07:16 02/03/25 11:25 02/03/25 11:30 Temperature 97.6 F 97.6 F Pulse Rate 75 88 88 Respiratory Rate 16 16 16 Blood Pressure 176/92 H 170/112 H 170/112 H Pulse Oximetry 97 99 99 Oxygen Delivery Method Room Air Room Air Room Air BMI result Body Mass Index 26.6 hypertensive, vitals are otherwise wnl General: Non-toxic appearing, in no acute distress. Skin: Warm, dry, intact. No rashes or lesions. Head: Normocephalic, atraumatic. EENT: Hearing is intact b/l. Conjunctiva clear. PERRLA. EOM intact. Moist mucous membranes.? Cardiac: Chest wall symmetric. RRR Lungs: Normal respiratory effort without accessory muscle use. CTA bilaterally Abdomen: soft, ND, ttp just medial to the right inguinal fold, no palpable hernia. active bs x4. no abdominal tenderness, rebound or guarding. no cvat. Back: No midline spinous or paraspinal tenderness. No step off deformity. Ext: Upper and lower extremities atraumatic, without tenderness, deformity, swelling or erythema. Full ROM throughout Neuro: AOx3. Normal speech. Ambulating with steady gait. Course Course Course Narrative: CBC without leukocytosis or left shift. No anemia, H&H stable. Chemistry without acute electrolyte abnormality requiring intervention. mildly elevated renal function. Will treat with 1L IVF. Medicated with morphine for pain control. Glucose 174, no anion gap. UA without infection. CT a/p obtained on 01/11 showing constipation, small herniation of small bowel loop in the right proximal inguinal canal containing intraluminal fluid and mild wall thickening. CT abdomen/pelvis showing: IMPRESSION: Concerning mild enteritis with the questionable regional ileus. Internal hernia without obstructive pattern cannot be entirely excluded. Concerning/probable right varicocele. Diverticular disease without diverticulitis, left hemicolon. Fat-containing umbilical hernia. Hiatal hernia, moderate volume. Atherosclerosis disease. I spoke with general surgeon Dr. Shelton - After reviewing the images, she believes this is more of a spermatic cord problem. Requesting case be discussed with urology. I spoke with urologist Dr. Morales - after review of imaging, she states that there is no emergent surgical intervention warranted at this time. Feels that patient can continue to follow up with general surgery outpatient for management. No further recommendations. Patient standing outside of his room, requesting to be discharged home. He has a colonoscopy scheduled for tomorrow. I discussed all workup results patient. He appears comfortable. walking up/down the halls, anxious for discharge. Advised to keep follow up appointment with general surgery. he verbalizes understanding, has an appointment scheduled for the end of the month. Medications Administered Discontinued Medications Generic Name Dose Route Start Last Admin Trade Name Freq PRN Reason Stop Dose Admin Sodium Chloride 1,000 mls @ 999 mls/hr 02/03/25 08:30 02/03/25 09:44 Ns IV 02/03/25 09:30 Infused .Q1H1M KHUSHI Infusion Iohexol 100 ml 02/03/25 08:50 02/03/25 08:51 Iohexol 350 Mg/Ml 100 Ml Infus..Btl IV 02/03/25 08:51 85 ml ONCE ONE Administration Morphine Sulfate 4 mg 02/03/25 07:45 02/03/25 08:06 Morphine Sulfate 4 Mg/Ml Cartridge IVPUSH 02/03/25 07:46 4 mg ONCE ONE Administration Protocol Medical Decision Making Medical Decision Making MDM Narrative: 69 year old male with PMHx significant for HTN and CHF presents to the ED today for evaluation of right inguinal pain. hypertensive, vitals are otherwise wnl. he is well appearing, in NAD. on exam, abdomen is soft, ND, ttp just medial to the right inguinal fold, no palpable hernia. active bs x4. no abdominal tenderness, rebound or guarding. no cvat. Differential diagnosis includes includes UTI, inguinal hernia, incarcerated/strangulated hernia, constipation, bowel obstruction Plan for labs, UA, imaging, pain control and re-evaluation. Differential Diagnosis Differential Diagnoses: The differential diagnosis associated with the presentation includes as above. Admission/Observation not indicated. Consult Healthcare Provider Management of the patient was discussed with: [facility] General surgery - dr. albert urology - dr. morales Lab Data MDM Lab Attestation statement: I reviewed the patient's lab results. as above. 02/03/25 08:02 02/03/25 08:02 Labs: Lab Results 02/03/25 02/03/25 Range/Units 08:02 09:54 WBC 7.1 (4.8-10.8) X10*3/uL RBC 5.65 (4.60-5.80) X10*6/uL Hgb 16.6 (14.0-18.0) g/dl Hct 49.5 (42.0-52.0) % MCV 87.6 (80.0-98.0) fL MCH 29.4 (27.0-33.0) pg MCHC 33.5 (31.0-36.0) g/dl RDW 12.6 (11.0-16.0) % Plt Count 202 (160-400) X10*3/uL MPV 10.2 (9.4-12.4) fL Immature Gran % (Auto) 0.3 (0.0-0.4) % Neut % (Auto) 62.9 (45-73) % Lymph % (Auto) 24.0 (20-40) % Payne % (Auto) 9.2 (2-11) % Eos % (Auto) 3.2 (0-4) % Baso % (Auto) 0.4 (0-2) % Lymph # (Auto) 1.7 (1.2-4.9) X10*3/uL Payne # (Auto) 0.7 (0.1-1.2) X10*3/uL Eos # (Auto) 0.2 (0.0-0.4) X10*3/uL Baso # (Auto) 0.0 (0.0-0.2) X10*3/uL Abs Immat Gran (auto) 0.02 (0.00-0.03) X10*3/uL Absolute Neuts (auto) 4.5 (2.0-8.3) x10*3/uL Absolute Nucleated RBC 0.000 (0.0-0.012) X10*3/uL Nucleated RBC % (auto) 0.0 (0.0-0.2) /100WBC Sodium 138 (135-145) mmol/L Potassium 4.2 (3.3-5.1) mmol/L Chloride 106 (96-108) mmol/L Carbon Dioxide 25 (22-29) mmol/L Anion Gap 11 L (12-20) BUN 24 H (9-16) mg/dL Creatinine 1.20 (0.5-1.4) mg/dL Estim Creat Clear Calc 55.0 Estimated GFR > 60 Random Glucose 174 H (60-115) mg/dL Lactic Acid 1.1 (0.5-2.0) mmol/L Calcium 9.4 (8.4-10.2) mg/dL Magnesium 2.1 (1.6-2.6) mg/dL Total Bilirubin 0.5 (0.0-1.0) mg/dL AST 29 (5-37) U/L ALT 33 (0-40) U/L Alkaline Phosphatase 58 (39-117) U/L Total Protein 6.8 (6.5-8.0) g/dL Albumin 4.2 (3.5-5.0) g/dL Lipase 32 (8-78) U/L Urine Color Yellow Urine Appearance Clear Urine pH 8.0 (5.0-9.0) Ur Specific Julian 1.015 (1.005-1.025) Urine Protein Negative (Neg-Trace) mg/dL Urine Glucose (UA) Negative (Negative) mg/dL Urine Ketones Negative (Negative) mg/dL Urine Blood Negative (Negative) Urine Nitrite Negative (Negative) Ur Leukocyte Esterase Negative (Negative) Independent Interpretation I performed an independent interpretation of an: CT Scan Interpretation: ct a/p showing constipation, no bowel obstruction Radiology Impression Discussion of test interpretation with radiology: I have reviewed the radiologist's reading. Radiologist Impression: Procedure(s): CT abdomen pelvis w IV con Accession Number(s): [id number] cc: Khushboo Gonzales; Cheli Dempsey MD~ Report Number: [id number]: Total DLP = 692.00 mGy-cm Reason for Exam: R inguinal hernia, pain out of proportion EXAMINATION: CT ABDOMEN AND PELVIS WITH CONTRAST CLINICAL INFORMATION: Right inguinal hernia, pain. COMPARISON: January 11, 2025 TECHNIQUE: Multidetector volumetric images were obtained from the superior aspect of the liver through the pubic symphysis following administration 85 mL of Omnipaque 350 intravenous contrast. Sagittal and coronal reformatted images were obtained on the technologist's workstation. Oral contrast: No This CT examination was performed using dose optimization techniques as appropriate, variously including the following: *Automated exposure control *Adjustment of mA and/or kV according to patient size (this includes techniques or standardized protocols for targeted exams where dose is matched to indication/reason for exam; i.e. extremities or head) *Use of iterative reconstruction technique. DLP: 692 mGy-cm FINDINGS: LUNG BASES: No acute airspace disease or discrete pulmonary nodule. LIVER, GALLBLADDER, AND BILIARY TREE: Liver measures 15 cm. No enhancing mass. Main portal veins, hepatic veins and intrahepatic portion of the IVC are patent. Gallbladder is fluid-filled nondistended. No pericholecystic fluid collection or gallbladder wall thickening. PANCREAS: No enhancing mass. No cystic lesion. No main pancreatic ductal dilatation. No peripancreatic fluid collection. SPLEEN: 11 cm. No solid or cystic mass. ADRENAL GLANDS: Soft tissue fullness without nodular lesions. KIDNEYS AND URETERS: Bilateral renal cysts. No hydronephrosis. No gross nephrolithiasis. No enhancing renal mass. BLADDER: Fluid-filled. GASTROINTESTINAL TRACT: Appendix is normal. Abundant stool, large intestine. Gas and fluid-filled mildly prominent small bowel loops no gross intestinal wall thickening. No pneumatosis intestinalis. Fecal material in the ileal loops. No ascites. No pneumoperitoneum. Scattered diverticula, left hemicolon. No pericolonic edema pattern. Hiatal hernia, moderate volume. ABDOMINAL WALL: Small fat-containing umbilical hernia. No gross inguinal hernia. There is prominent pampiniform plexus in the right inguinal canal with edema pattern. LYMPH NODES: No specific prominent less than 1 cm lymph nodes, retroperitoneum and mesenteric. VASCULAR: Mixed plaques throughout the aorta and iliac arteries without gross aneurysm or dissection. Calcified plaques in the femoral arteries. The heart appears enlarged, all 4 chambers. PELVIC VISCERA: Not enlarged prostate gland. OSSEOUS STRUCTURES: Old compression fracture deformity representing 70% volume loss at L3. Multilevel spondylosis from L2-3 to L5-S1. Grade 1 retrolisthesis L3-4 on a degenerative basis. Bilateral neuroforamina stenosis from L2-3 to L5-S1. Sclerosis and the sacroiliac joints. No lytic or blastic lesions. No gross acute fracture. CT/CT abdomen pelvis w IV con IMPRESSION: Concerning mild enteritis with the questionable regional ileus. Internal hernia without obstructive pattern cannot be entirely excluded. Concerning/probable right varicocele. Diverticular disease without diverticulitis, left hemicolon. Fat-containing umbilical hernia. Hiatal hernia, moderate volume. Atherosclerosis disease. Fleischner guidelines were followed. Electronically signed by: Armando Andrews MD 02/03/2025 09:02 AM [facility] Independent Historian Clinical information obtained from an independent historian. History obtained from or confirmed by: Spouse External Record Review External record reviewed: Inpatient record, Office record, Outpatient record and Prior outpatient labs Prescription Management I considered prescription management with: Pain Medication Social Determinants Patient?s care significantly limited by Social Determinants of Health including: Other Social Determinant of Health Critical Care Time Critical Care Time Critical Care Time: Yes Total Critical Care Time: 32 Attestation: Critical care time in the amount of 32 minutes has been provided to the patient in terms of direct patient care, frequent reevaluation on IV morphine, consultation with urology, review and interpretation of medical data and results, and management of potentially life-threatening conditions. This is all outside of any medical procedures. Discharge Plan Discharge Clinical Impression: Inguinal hernia, right Patient Disposition: Home, Self-Care Instructions: Inguinal Hernia (ED) Additional Instructions: You were evaluated in the ED today for right groin pain. Your evaluation has shown no signs of medical conditions requiring emergent intervention at this time. You are quite constipated. I recommend using stool softeners such as colace 100 mg twice daily. In addition, take over the counter miralax 2-3 times daily until you begin having multiple large volume bowel movements. For pain, I recommend you take 600mg ibuprofen every 6 hours or Tylenol 650mg every 6 hours as needed. If needed, you can alternate these medications so that you take one medication every 3 hours. For example, at noon take ibuprofen, then at 3pm take Tylenol, then at 6pm take ibuprofen. Please follow up with general surgery. Return with any new or worsening symptoms. In the case of an emergeny call 911. Prescriptions: No Action carvedilol 6.25 mg tablet 6.25 mg PO BID 90 Days Qty: 180 1RF Rx Instructions: must administer with a meal/food furosemide 20 mg tablet 20 mg PO DAILY 90 Days Qty: 90 1RF (DME) blood pressure monitor Kit See Rx Instructions .Route Qty: 1 0RF Rx Instructions: As directed sacubitril-valsartan 24-26 mg tablet 1 tab PO BID lidocaine 5 % adhesive patch,medicated 1 patch topical DAILY PRN (Reason: pain) oxycodone 5 mg tablet 5 mg PO Q6H PRN (Reason: pain (scale score 7-10)) Qty: 15 0RF Rx Instructions: Partial Fill upon patient request. [place] [facility] [facility] [Provider Group, General Surgery] Cheli Dempsey MD [Primary Care Provider, Internal Medicine] Interventions: ED Discharge Assessment Last Done: 02/03/25 11:30 Discharge Date/Time: 02/03/25 11:42 Print Language: Yoruba
[2025-02-03 08:06] LABS: MANUAL DIFF FLAG NO
[2025-02-03 08:09] LABS: Hematocrit 49.5 % (42.0-52.0); Hemoglobin 16.6 g/dl (14.0-18.0); Imm Gran Abs Auto 0.02 X10*3/uL (0.00-0.03); Imm Gran Pct Auto 0.3 % (0.0-0.4); Lymphocytes Absolute Auto 1.7 X10*3/uL (1.2-4.9); Mean Corpuscular HGB Conc 33.5 g/dl (31.0-36.0); Mean Corpuscular Hemoglobin 29.4 pg (27.0-33.0); Mean Corpuscular Volume 87.6 fL (80.0-98.0); NRBC Abs Auto 0.000 X10*3/uL (0.0-0.012); NRBC Pct Auto 0.0 /100WBC (0.0-0.2); Platelet Count 202 X10*3/uL (160-400); Red Blood Count 5.65 X10*6/uL (4.60-5.80); White Blood Count 7.1 X10*3/uL (4.8-10.8)
[2025-02-03 08:24] LABS: Alanine Aminotransferase 33 U/L (0-40); Albumin Level 4.2 g/dL (3.5-5.0); Alkaline Phosphatase 58 U/L (39-117); Anion Gap 11 (12-20); Aspartate Amino Transferase 29 U/L (5-37); Blood Urea Nitrogen 24 mg/dL (9-16); Calcium 9.4 mg/dL (8.4-10.2); Carbon Dioxide 25 mmol/L (22-29); Chloride 106 mmol/L (96-108); Creatinine Clr Calc Pharmacy 55.0; Estimated Glomerular Filt Rate > 60; Lipase 32 U/L (8-78); Magnesium 2.1 mg/dL (1.6-2.6); Potassium 4.2 mmol/L (3.3-5.1); Sodium 138 mmol/L (135-145); Total Protein 6.8 g/dL (6.5-8.0)
[2025-02-03] MEDS: iohexoL 350 MG/ML 100 ML INFUS..BTL IV (08:51)
[2025-02-03 10:05] LABS: Appearance Urine Clear; Glucose Urine UA Negative (Negative); PH 8.0 (5.0-9.0); Specific Gravity - Urine 1.015 (1.005-1.025)
[2025-02-03 11:25] VITALS: BP 170/112; PULSE 88; RESP 16; TEMP 36.4; O2SAT 99
[2025-02-03 11:30] VITALS: BP 170/112; PULSE 88; RESP 16; TEMP 36.4; O2SAT 99
== END 2025-02-03 11:42 | disposition home or self-care (01) ==
PROVIDERS: Physician Assistant Medical; Emergency Provider Emergency Medicine; PCP Internal Medicine
DX: K40.90 Unilateral inguinal hernia, without obstruction or gangrene, not specified as recurrent (principal); I10 Essential (primary) hypertension; M54.50 Low back pain, unspecified; I50.42 Chronic combined systolic (congestive) and diastolic (congestive) heart failure
CPT/HCPCS: 36415; 74177; 80053; 81003; 83605; 83690; 83735; 85025; 96361; 96374; 99284; 99285; J2270; Q9967

== ENCOUNTER → 2025-02-03 07:45 | Outpatient (BNV) | payer OTHER, SELFPAY | PROVIDERS: Emergency Provider Emergency Medicine; PCP Internal Medicine; Visit Provider Radiology Diagnostic Radiology | DX: K57.90 Diverticulosis of intestine, part unspecified, without perforation or abscess without bleeding (principal); K42.9 Umbilical hernia without obstruction or gangrene; K44.9 Diaphragmatic hernia without obstruction or gangrene; I70.90 Unspecified atherosclerosis | CPT/HCPCS: 74177 ==

== ENCOUNTER 2025-02-04 09:58 | Day surgery (SDC) | payer OTHER, SELFPAY ==
--- NOTE | 2025-02-01 13:13 | P.CONAN_ITS ---
Documented by User: Divya Gannon NP 02/01/25 13:16 HPI - Anesthesia Eval Consult details Narrative: 69yo M for Excision RIGHT Supraclavicular Lipoma, Excision Posterior Neck Sebaceous Cyst s/p lipoma excision 12/31/24 with GA, LMA 5 Follows [facility] cardiology, Dr. Dietz stated in work load on 01/26/25 may proceed with above, intermediate risk Notes from prior to 12/2024 procedure as follows: -Follows [facility] Cardiology for Chronic combined systolic and diastolic CHF, HTN. At 12/06/24 office visit, deemed intermed risk for elective surgery. -In regards to CHF: In the initial echocardiogram, LVEF was 28%. Repeat study with 32%. -Myocardial perfusion imaging study without any clear ischemia or infarction. -Cardiomyopathy could be all related to hypertension. Meds to be optimized. Case reviewed with LM prior to Dec 2024 GA case. PMFSH Active Problems Active Problems: All Active Problems Umbilical hernia (Acute) Right shoulder pain (Acute) Epidermal inclusion cyst (Acute) Groin lump (Acute) Sebaceous cyst (Acute) Lipoma of right shoulder (Acute) Renal cyst (Acute) Pleural effusion (Acute) Preop cardiovascular exam (Acute) Hospital discharge follow-up (Acute) Cardiomyopathy (Acute) Snoring (Acute) Elevated serum creatinine (Acute) Acute combined systolic and diastolic congestive heart failure (Acute) Hypertensive emergency (Acute) New onset of congestive heart failure (Acute) Sacroiliac joint pain (Acute) Left knee pain (Acute) Lumbosacral spondylosis (Acute) Abnormal EKG (Acute) Nocturia (Acute) Cyst of right clavicle (Acute) Lumbar pain (Acute) Syphilis (Acute) Erectile dysfunction (Acute) Physical exam (Acute) Bleeding hemorrhoids (Acute) Rectal bleeding (Acute) Hip pain (Acute) Shoulder pain (Acute) Chronic combined systolic and diastolic CHF (congestive heart failure) (Acute) Hypertension (Acute) Lumbar degenerative disc disease (Acute) Past Medical History Medical History Low back pain Chronic combined systolic and diastolic CHF (congestive heart failure) Hypertension Lumbar degenerative disc disease Compression fracture of L3 vertebra Family History Family History Mother No problems noted. Father No problems noted. Family history of problems with anesthesia: No Surgical History Surgical History Hx of surgical procedure (12/30/24) History of dental surgery Hx of colonoscopy History of Problems with Anesthesia: No Social History Social History Household Members: Spouse Housing: House Are you a primary long term care administrator to a significant other at home: No Do you presently have visiting nurse or other home services: No Alcohol intake: current Alcohol intake frequency: holidays/special occasions only Alcohol type: hard liquor Patient Tobacco Use Status: Never used Tobacco e-Cigarette/Vaping Use: Never Used Second Hand Smoke Exposure: No Use of substances other than those prescribed or required for medical reasons: No Advance Directives: No Advance Directives Information Provided: Yes Advance Directives Date on File: 06/21/24 service: No Current occupational status: unemployed Cognitive needs: No Hearing needs: No Vision needs: Yes (glasses) Meds Allergies Allergy/AdvReac Type Severity Reaction Status Date / Time No Known Allergies Allergy Verified 02/03/25 07:18 Home Medications ?Medication ?Instructions ?Recorded ?Confirmed ?Last Taken ?Type lidocaine 5 % topical patch 1 patch topical DAILY PRN pain 12/28/24 02/04/25 Unknown History sacubitril 24 mg-valsartan 26 mg 1 tab PO BID 12/28/24 02/04/25 02/04/25 History tablet Assessment and Plan Final Anesthetic Review Family History of Problems with Anesthesia: No History of Problems with Anesthesia: No Documented by User: Tyson Gonzalez MD 02/04/25 11:00 [facility] Past Medical History Medical History Low back pain Chronic combined systolic and diastolic CHF (congestive heart failure) Hypertension Lumbar degenerative disc disease Compression fracture of L3 vertebra Functional capacity: independent ambulation Family History Family History Mother No problems noted. Father No problems noted. Surgical History Surgical History Hx of surgical procedure (12/30/24) History of dental surgery Hx of colonoscopy Social History Social History Household Members: Spouse Housing: House Are you a primary long term care administrator to a significant other at home: No Do you presently have visiting nurse or other home services: No Alcohol intake: current Alcohol intake frequency: holidays/special occasions only Alcohol type: hard liquor Patient Tobacco Use Status: Never used Tobacco e-Cigarette/Vaping Use: Never Used Second Hand Smoke Exposure: No Use of substances other than those prescribed or required for medical reasons: No Advance Directives: No Advance Directives Information Provided: Yes Advance Directives Date on File: 06/21/24 service: No Current occupational status: unemployed Cognitive needs: No Hearing needs: No Vision needs: Yes (glasses) Meds Allergies Allergy/AdvReac Type Severity Reaction Status Date / Time No Known Allergies Allergy Verified 02/03/25 07:18 Home Medications ?Medication ?Instructions ?Recorded ?Confirmed ?Last Taken ?Type lidocaine 5 % topical patch 1 patch topical DAILY PRN pain 12/28/24 02/04/25 Unknown History sacubitril 24 mg-valsartan 26 mg 1 tab PO BID 12/28/24 02/04/25 02/04/25 History tablet Exam Exam Date and Time: 02/04/2025 Airway Mallampati Class: II TM Dist: >3cm Neck ROM: Full Heart: rrr Lungs: cta Other: good Assessment and Plan Assessment Anesthesia Assessment: Anesthesia Plan Discussed and Chart Reviewed Final Anesthetic Review ASA Class: II Final Preanesthetic Review: No Changes in Pt Med Stat, Meds/Allgs Chart Reviewed, Consent Obtained/Reviewed and Anes Risks/Benef Reviewed Patient Risk: Low Procedure Risk: Low Anesthetic Plan Anesthetic Plan: MAC: Disposition: Standard PACU
--- NOTE | 2025-02-04 10:03 | MHC.SHP ---
Pre-Procedural Eval Section A - 24 Hr Update-Section A only Date of Service: 02/04/25 Section B - Complete if H&P > 30 days Chief Complaint: screening Details of Present Illness: Lumbar degenerative disc disease Compression fracture of L3 vertebra Hypertension Surgical History No pertinent past surgical history Present Medications: see Short Stay Collaborative assessment Allergies: Allergies Allergy/AdvReac Type Severity Reaction Status Date / Time No Known Allergies Allergy Verified 02/03/25 07:18 Review of Systems Review of Systems Comment: Ten point ROS negative Exam Exam Comment: Gen appear: No acute distress HEENT: no icterus Chest: No overt resp distress Abd: soft, nontender, nondistended Psych: Stable affect, answering questions appropriately Neuro: A/Ox3 noted to move all extremities spontaneously Ext: no peripheral edema Plan Diagnosis/Plan: Unchanged I have reviewed the history and physical and performed a pertinent physical examination on my patient. No changes have occurred unless specified. Time Spent With Patient Time: Total time managing care of this patient today ____ minutes.
[2025-02-04 10:12] VITALS: BMI 26.5
[2025-02-04] MEDS: Lactated Ringers 1,000 ML 100 ML IVCONT (10:28)
[2025-02-04 10:29] VITALS: BP 169/83; PULSE 67; RESP 16; TEMP 36.3; O2SAT 97
--- NOTE | 2025-02-04 11:28 | P.OPN-COLO_ITS ---
Colonoscopy Operative Note Operative Note Date of Service: 02/04/25 Narrative: Procedure: Colonoscopy Indication: Screening Endoscopist: Shiloh Gold MD Anesthesia Provider: Dr Gonzalez Anesthesia type: MAC Instrument: Olympus [id number]-H190L Consent: Indication, risks vs benefits, and alternatives were discussed with the patient who gave written informed consent to proceed. EKG, pulse, pulse oximetry and blood pressure were monitored throughout the procedure. Please see anesthesia flowsheet. Procedure: The patient was brought to the procedure room and placed in the left lateral decubitus position. IV medications were administered by the anesthesia provider in attendance. A digital rectal exam was performed which was normal. A distal attachment cap was affixed to the tip of the colonoscope which was then inserted through the anus and advanced through the colon to the cecum at 80 cm. Appendiceal orifice and ileocecal valve were identified. Mucosa was carefully examined under high definition white light as the instrument was slowly withdrawn in a retrograde panoramic fashion. Retroflexion was performed in rectum. The procedure was not difficult. There were no immediate obvious complications. The quality of the prep was BBPS: 2+3+3 = adequate Withdrawal time 12 minutes. Limitations: No limitations. Findings: Mucosa: Normal to cecum. Protruding lesions: * 1 sessile polyp of size 2 mm in transverse colon. Cold snare polypectomy was performed. The polyp was completely removed and retrieved. * Medium internal hemorrhoids without stigmata of recent bleeding. Excavated lesions: * Moderate to severe diverticulosis of whole colon L>R. Impression: 1. Normal colon mucosa 2. Total of 1 polyp removed 3. Diverticulosis 4. Internal hemorrhoids Recommendations: - Follow path results. - Repeat colonoscopy in 7-10 years if polypis an adenoma.
[2025-02-04 11:33] VITALS: BP 99/67; PULSE 70; RESP 16; TEMP 36.6; O2SAT 96
[2025-02-04 11:48] VITALS: BP 105/68; PULSE 74; RESP 16; TEMP 36.9; O2SAT 98
== END 2025-02-04 12:37 | disposition home or self-care (01) ==
PROVIDERS: PCP Internal Medicine; Visit Provider Internal Medicine
PROC: 0DJD8ZZ Inspection of Lower Intestinal Tract, Via Natural or Artificial Opening Endoscopic (ICD-10-PCS; CPT 45378; principal; 2025-02-04 12:00)
DX: Z12.11 Encounter for screening for malignant neoplasm of colon (principal); K64.8 Other hemorrhoids; K57.30 Diverticulosis of large intestine without perforation or abscess without bleeding; K63.5 Polyp of colon
CPT/HCPCS: 45385; 88305; J2003; J2704; J3010

== ENCOUNTER → 2025-02-04 09:58 | Outpatient (BNV) | payer OTHER, SELFPAY | PROVIDERS: PCP Internal Medicine; Visit Provider Internal Medicine | DX: Z12.11 Encounter for screening for malignant neoplasm of colon (principal); K63.5 Polyp of colon; K57.90 Diverticulosis of intestine, part unspecified, without perforation or abscess without bleeding; K64.8 Other hemorrhoids | CPT/HCPCS: 45385 ==

== ENCOUNTER 2025-02-08 08:13 | Outpatient (AMB) | payer OTHER, SELFPAY ==
--- NOTE | 2025-02-08 08:53 | MHC.OFFVIS ---
Vital Signs 02/08/25 08:57 Height 5 ft 7 in Weight 172 lb BMI 26.9 Intake Visit Reasons: Umbilical hernia Intake Note: Patient presents for an assessment for umbilical hernia. Pt c/o; right inguinal hernia, reports pain, reports bulge, denies changes in bowel habits. Clinical Technologist Required: Yes Clinical Technologist Language: Glass [employer]ing [employer] Member Services: Clinical Technologist Present Clinical Technologist Name: Trinidad Information Interpreted: non-clinical & clinical Accompanied by: Self / Same As Patient Allergies No Known Allergies Allergy (Verified 02/08/25 08:57) Medication List - Last Reconciled 02/08/25 by Darrius Romero MD blood pressure monitor As directed carvedilol 6.25 mg PO BID 90 days furosemide 20 mg PO DAILY 90 days lidocaine 5% 1 patch topical DAILY PRN oxycodone 5 mg PO Q6H PRN sacubitril-valsartan 24-26 mg 1 tab PO BID HPI Comments Details: Patient presents longstanding history of a symptomatic right inguinal hernia. He went to the emergency department where a CT scan was indicative of a small umbilical and probable 2 small inguinal hernias 1 on the right 1 on the left. All of the hernias involved only fatty tissue. No hollow viscus. Patient denies any history of abdominal or inguinal surgery in the past. He desires repair of his hernia ?because it hurts?. He denies any obstructive symptoms. [facility] Medical History Low back pain Chronic combined systolic and diastolic CHF (congestive heart failure) Hypertension Lumbar degenerative disc disease Compression fracture of L3 vertebra Surgical History Hx of surgical procedure (12/30/24) History of dental surgery Hx of colonoscopy Family History Mother No problems noted. Father No problems noted. Social History Household Members: Spouse Housing: House Are you a primary pet care associate to a significant other at home: No Do you presently have visiting nurse or other home services: No Alcohol intake: current Alcohol intake frequency: holidays/special occasions only Alcohol type: hard liquor Patient Tobacco Use Status: Never used Tobacco e-Cigarette/Vaping Use: Never Used Second Hand Smoke Exposure: No Advance Directives Date on File: 06/21/24 service: No Current occupational status: unemployed Cognitive needs: No Hearing needs: No Vision needs: Yes (glasses) Review of Systems Const All systems reviewed & are unremarkable except as noted in HPI and below Physical Exam Vital Signs: BMI result Body Mass Index 26.9 Const General: cooperative, healthy appearing and comfortable Orientation/consciousness: oriented to person, oriented to place and oriented to time HEENT Head: Yes normal to inspection, Yes normocephalic and Yes atraumatic Eyes General: appearance normal, both eyes and all related structures Pupils: Equal, round and reactive pupils present EOM: EOMs intact bilaterally Neck Neck: Yes normal visual inspection Chest Chest palpation & inspection: normal inspection of the chest Resp Effort & Inspection: normal respiratory effort and able to speak in complete sentences Cardio Rate: regular rate Rhythm: regular rhythm GI Inspection: Yes normal to inspection Abdomen image:  1. Symptomatic small sliding right inguinal hernia 2. Asymptomatic small sliding left inguinal hernia 3. Small asymptomatic umbilical hernia General: Yes no CVA tenderness Back/Spine/Pelvis Back: no CVA tenderness Neuro General: oriented to person, oriented to place and oriented to time Cranial nerves: Yes CN's II-XII intact bilaterally and Yes Equal, round and reactive pupils present Assessment & Plan Assessment & Plan (1) Inguinal hernia bilateral, non-recurrent: Code(s): K40.20 - Bilateral inguinal hernia, without obstruction or gangrene, not specified as recurrent Category: Medical Plan: I told the patient his presentation was consistent with a right inguinal, probable left inguinal as well as small umbilical hernia. I Offered intervention in the form of laparoscopic possible open bilateral inguinal and umbilical hernia repair with mesh. I reviewed with him the risks involved with such an undertaking. These include but are not limited to the risk of bleeding, the risk of infection, the risk of hernia recurrence, the risk of damage to surrounding structures, the risk of chronic pain and the risk that the surgery would not solve his current problems with discomfort were all reviewed with him in detail. He told me that he understood. He told me that he understood considered his options. He told me that he felt the risks were inherent with such an operation and lastly indicated that he wished to proceed with surgery. Coding Level of Care Code New Pt Level 3 (14378) Diagnoses Inguinal hernia bilateral, non-recurrent K40.20 Time Spent (min) 30 Comment Patient visit record review and coordination of care time
[2025-02-08 08:57] VITALS: BMI 26.9
== END 2025-02-08 09:26 | disposition home or self-care (01) ==
LOC: HO.HGS 08:14
PROVIDERS: PCP Internal Medicine; Visit Provider Surgery
DX: K40.20 Bilateral inguinal hernia, without obstruction or gangrene, not specified as recurrent (principal)
CPT/HCPCS: 99203

== ENCOUNTER 2025-02-14 05:51 | Emergency (ER) | payer OTHER, SELFPAY ==
--- NOTE | ~2025-02-14 | CT_ITS ---
EXAMINATION: CT ABDOMEN AND PELVIS WITH CONTRAST CLINICAL INFORMATION: Right inguinal pain COMPARISON: February 03, 2025. TECHNIQUE: Multidetector volumetric images were obtained from the superior aspect of the liver through the pubic symphysis following administration 85 mL of Omnipaque 350 intravenous contrast. Sagittal and coronal reformatted images were obtained on the technologist's workstation. Oral contrast: Yes This CT examination was performed using dose optimization techniques as appropriate, variously including the following: *Automated exposure control *Adjustment of mA and/or kV according to patient size (this includes techniques or standardized protocols for targeted exams where dose is matched to indication/reason for exam; i.e. extremities or head) *Use of iterative reconstruction technique DLP: 557 mGy-cm FINDINGS: LUNG BASES: Atelectasis. LIVER, GALLBLADDER, AND BILIARY TREE: Liver measures 15 cm. No focal enhancing mass. Main portal veins and hepatic veins are patent. Intrahepatic portion of the IVC is patent. Probable focal fatty infiltration adjacent to the falciform ligament. Gallbladder is contracted. Trace of pericholecystic fluid. Gallbladder wall measures 2 mm. No intrahepatic or extrahepatic biliary ductal dilatation. PANCREAS: No solid or cystic mass. No peripancreatic fluid collection. No main pancreatic ductal dilatation. SPLEEN: 10 cm. No solid or cystic mass. ADRENAL GLANDS: No nodular lesions. Soft tissue fullness, left adrenal gland. KIDNEYS AND URETERS: Multifocal hypodensities in the renal cortex and cortical medullary junction. No hydronephrosis. No gross nephrolithiasis. No enhancing mass. No dilatation of the ureters. BLADDER: Fluid-filled. GASTROINTESTINAL TRACT: Hiatal hernia, moderate volume. Abundant stool, large intestine. Intestinal wall thickening, distal ileal loops and terminal ileum. The oral contrast does not reach the distal ileal loops. No air-fluid levels. Appendix is normal. No pneumatosis intestinalis. Scattered diverticula in the left hemicolon. No ascites. No pneumoperitoneum. No pneumatosis intestinalis. ABDOMINAL WALL: Fluid within the right inguinal canal. No discrete inguinal hernia. Small fat-containing umbilical hernia. LYMPH NODES: Prominent mesenteric lymph nodes. VASCULAR: Mixed plaques throughout the aorta and the iliac arteries. No gross aneurysm or dissection abdominal aorta. Calcified plaques in the origin of the main renal arteries and mesenteric arteries. Probable sutures in the inguinal scrotal canal suggesting vasectomy. PELVIC VISCERA: Not enlarged. OSSEOUS STRUCTURES: There is a compression deformity of the superior endplate of L3 representing 70% volume loss with the likely pseudoarthrosis at L2-3 level similar since prior exam. There is a grade 1 retrolisthesis L3-4, unchanged. Multilevel thoracolumbar spondylosis pronounced from L2 to S1. Vacuum phenomenon at multiple levels in the lower lumbar spine. Bilateral facet joint hypertrophy at L4-5 and L5-S1. Sclerosis and syndesmophyte formation and the sacroiliac joints. CT/CT abdomen pelvis w IV con IMPRESSION: Concerning inflammatory bowel disease without intestinal obstruction. Small volume of fluid, right inguinal canal. Trace of pericholecystic fluid without gallbladder distention or gross cholelithiasis. Diverticular disease. Hiatal hernia. Pseudoarthrosis at L2-3 and old/chronic compression deformity at L3. Small fat-containing umbilical hernia. Fleischner guidelines were followed. Electronically signed by: Armando Andrews MD 02/14/2025 10:59 AM MING
[2025-02-14 06:07] VITALS: BP 183/89; PULSE 69; RESP 16; TEMP 36.2; O2SAT 99; BMI 26.6
--- OUTSIDE RECORDS SUMMARY | 2025-02-14 06:50 | XMS_ITS ---
Author Organization Unknown ENCOUNTERS Encounter Performer Location Date Diagnosis Diagnosis Status Emergency Generic ED Physician [facility] [address] [place] [address] [id number] Pre Admit Generic ED Physician [facility] [address] [place] [address] [id number] Outpatient [facility] [address] [place] [address] [id number] [facility] Emergency [facility] [address] [place] [address] [id number] GEOVANNA Pre Admit Generic ED Physician [facility] [address] [place] [address] [id number] Outpatient [facility] [address] [place] [address] [id number] GEOVANNA Emergency [facility] [address] [place] [address] [id number] GEOVANNA Pre Admit [facility] [address] [place] [address] [id number] Emergency [facility] [address] [place] [address] [id number] GEOVANNA Pre Admit Generic ED Physician [facility] [address] [place] [address] [id number] Inpatient [facility] [address] [place] [address] [id number] GEOVANNA Emergency [facility] [address] [place] [address] [id number] AIP Pre Admit Generic ED Physician [facility] [address] [place] [address] [id number] *Note: Encounters from your own facility or health system may be excluded. Allergies, Adverse Reactions, Alerts Allergen Type Severity Identification Date Medications Name Date Quantity Days Supplied GPI Number
--- NOTE | 2025-02-14 07:28 | ED_ITS ---
HPI - General Adult General Chief complaint: General Medical Stated complaint: headache Time Seen by Provider: 02/14/25 07:19 Source: patient Mode of arrival: ambulatory Limitations: no limitations History of Present Illness ED Provider: Dr. Sanchez HPI narrative: 69-year-old male history of right inguinal hernia presented hospital today for increased pain. Patient has stated that he does have dysuria when he urinates as well. And when he has bowel movement. No signs of bowel obstruction. Patient stated that he has been evaluated outpatient with the surgical team for an elective surgery. However patient has having continuous pain and can no longer wait. Therefore he presents to the ER for evaluation. Patient stated the pain is very intense. 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 He is unable to work due to the pain. Related Data Home Medications ?Medication ?Instructions ?Recorded ?Confirmed lidocaine 5 % topical patch 1 patch topical DAILY PRN pain 12/28/24 02/08/25 sacubitril 24 mg-valsartan 26 mg 1 tab PO BID 12/28/24 02/08/25 tablet Previous Rx's ?Medication ?Instructions ?Recorded carvedilol 6.25 mg tablet 6.25 mg PO BID 90 days #180 tabs 11/02/24 furosemide 20 mg tablet 20 mg PO DAILY 90 days #90 t abs 11/02/24 blood pressure monitor #1 ea 12/06/24 oxycodone 5 mg tablet 5 mg PO Q6H PRN pain (scale score 12/30/24 7-10) #15 tabs oxycodone 5 mg tablet 5 mg PO Q8H PRN pain #14 tab s 02/14/25 prednisone 20 mg tablet 20 mg PO DAILY 7 days #7 tab s 02/14/25 Allergies Allergy/AdvReac Type Severity Reaction Status Date / Time No Known Allergies Allergy Verified 02/14/25 06:09 Review of Systems 2 Review of Systems: Pertinent review of systems as mentioned in HPI. All other system otherwise negative. [facility] Past Medical History [facility] Narrative: Inguinal hernia Medical History (Updated 02/14/25 @ 12:54 by Charity Sanchez DO) Inguinal hernia bilateral, non-recurrent Low back pain Chronic combined systolic and diastolic CHF (congestive heart failure) Hypertension Lumbar degenerative disc disease Compression fracture of L3 vertebra Surgical History Hx of surgical procedure (12/30/24) History of dental surgery Hx of colonoscopy Family History Family History Mother No problems noted. Father No problems noted. Social History Social History Household Members: Spouse Housing: House Are you a primary healthcare receptionist to a significant other at home: No Do you presently have visiting nurse or other home services: No Alcohol intake: current Alcohol intake frequency: holidays/special occasions only Alcohol type: hard liquor Patient Tobacco Use Status: Never used Tobacco Smoked in Last 30 Days: No e-Cigarette/Vaping Use: Never Used Second Hand Smoke Exposure: No Use of substances other than those prescribed or required for medical reasons: No Advance Directives: Yes Advance Directives on File: Yes Advance Directives Date on File: 06/21/24 Do you have a plan to hurt others: No Plan service: No Current occupational status: unemployed Cognitive needs: No Hearing needs: No Vision needs: Yes (glasses) Physical Exam ED Exam Exam: General: Pleasant, no distress, interacting appropriately Head: Normacephalic, atraumatic ENT: oral mucosa moist, neck supple, no tracheal deviation Gastrointestinal: Soft, non distended, non tender, right inguinal hernia on palpation no signs of incarcerated hernia. Scrotum appears normal. Neurological: Awake and alert, no facial droop noted Skin: Warm and dry Psychiatric: Appropriate mood and thoughts Vital Signs: Vital Signs - 24 hr 02/14/25 06:07 02/14/25 08:58 02/14/25 10:57 Temperature 97.1 F 97.5 F 97.5 F Pulse Rate 69 69 69 Respiratory Rate 16 15 15 Blood Pressure 183/89 H 157/109 H 157/109 H Pulse Oximetry 99 98 98 Oxygen Delivery Method Room Air Room Air Room Air BMI result Body Mass Index 26.6 Medications Administered Discontinued Medications Generic Name Dose Route Start Last Admin Trade Name Freq PRN Reason Stop Dose Admin Acetaminophen 975 mg 02/14/25 08:01 02/14/25 08:07 Acetaminophen 325 Mg Tablet PO 02/14/25 08:02 975 mg ONCE ONE Administration Diatrizoate Meglum/Diatrizoate Sod 30 ml 02/14/25 10:34 02/14/25 10:34 Diatrizoate Meglumine, Sodium 30 Ml Solution PO 02/14/25 10:35 30 ml ONCE ONE Administration Iohexol 100 ml 02/14/25 10:33 02/14/25 10:34 Iohexol 350 Mg/Ml 100 Ml Infus..Btl IV 02/14/25 10:34 85 ml ONCE ONE Administration Oxycodone HCl 5 mg 02/14/25 08:01 02/14/25 08:06 Oxycodone Hcl Immed Release 5 Mg Tablet PO 02/14/25 08:02 5 mg ONCE ONE Administration Medical Decision Making Medical Decision Making [facility] Narrative: This is a 69-year-old male history of inguinal hernia presented hospital today for right groin pain. The patient stated this has been persistence pain. He was diagnosed with a inguinal hernia. However the pain persist. He is unable to get surgery soon. Therefore he presents to the ER for evaluation. Obtain basic abdominal lab work for the patient does time. CT abdomen and pelvis will be obtained to assess for any signs of incarcerated hernia. We will shoot this with oral contrast at this time. Assess for any other cause of his right continuous groin pain. It was noted that in previous ultrasound the patient has varicocele in his right scrotum. CTA abdomen and pelvis did not show any signs of incarcerated hernia. Report was given to the patient. CBC and chemistries unremarkable. Discussed case with Dr Love. He reviewed imaging. Does not think hernia is incarcerated. Patient also has signs of possible inflammatory bowel disease at the ileum. We will plan to start patient on a course of prednisone. At this time we will plan to discharge patient with a short course of oxycodone, prednisone and work excuse note with modification of activities. Encouraged to call the surgical office for close follow up. Patient agrees and understands this plan all questions were addressed. official court interpreter was used for this encounter. Differential Diagnosis Differential Diagnoses: The differential diagnosis associated with the presentation includes Incarcerated hernia, inguinal hernia, UTI Lab Data [facility] Lab Attestation statement: I reviewed the patient's lab results. 02/14/25 08:13 02/14/25 08:13 Labs: Lab Results 02/14/25 Range/Units 08:13 WBC 8.5 (4.8-10.8) X10*3/uL RBC 6.26 H (4.60-5.80) X10*6/uL Hgb 18.4 H (14.0-18.0) g/dl Hct 54.9 H (42.0-52.0) % MCV 87.7 (80.0-98.0) fL MCH 29.4 (27.0-33.0) pg MCHC 33.5 (31.0-36.0) g/dl RDW 12.4 (11.0-16.0) % Plt Count 235 (160-400) X10*3/uL MPV 10.2 (9.4-12.4) fL Immature Gran % (Auto) 0.2 (0.0-0.4) % Neut % (Auto) 72.0 (45-73) % Lymph % (Auto) 18.1 L (20-40) % Tucker % (Auto) 8.0 (2-11) % Eos % (Auto) 1.3 (0-4) % Baso % (Auto) 0.4 (0-2) % Lymph # (Auto) 1.6 (1.2-4.9) X10*3/uL Tucker # (Auto) 0.7 (0.1-1.2) X10*3/uL Eos # (Auto) 0.1 (0.0-0.4) X10*3/uL Baso # (Auto) 0.0 (0.0-0.2) X10*3/uL Abs Immat Gran (auto) 0.02 (0.00-0.03) X10*3/uL Absolute Neuts (auto) 6.2 (2.0-8.3) x10*3/uL Absolute Nucleated RBC 0.000 (0.0-0.012) X10*3/uL Nucleated RBC % (auto) 0.0 (0.0-0.2) /100WBC Sodium 143 (135-145) mmol/L Potassium 4.3 (3.3-5.1) mmol/L Chloride 105 (96-108) mmol/L Carbon Dioxide 28 (22-29) mmol/L Anion Gap 14 (12-20) BUN 22 H (9-16) mg/dL Creatinine 1.27 (0.5-1.4) mg/dL Estim Creat Clear Calc 52.0 Estimated GFR 56 Random Glucose 107 (60-115) mg/dL Calcium 9.5 (8.4-10.2) mg/dL Total Bilirubin 0.6 (0.0-1.0) mg/dL AST 29 (5-37) U/L ALT 27 (0-40) U/L Alkaline Phosphatase 58 (39-117) U/L Total Protein 7.6 (6.5-8.0) g/dL Albumin 4.7 (3.5-5.0) g/dL Independent Interpretation I performed an independent interpretation of an: CT Scan Radiology Impression Discussion of test interpretation with radiology: I have reviewed the radiologist's reading. Discharge Plan Discharge Clinical Impression: Inguinal hernia Qualifiers: Obstruction and gangrene presence: without obstruction or gangrene Laterality: unilateral Recurrence: not specified as recurrent Qualified Code(s): K40.90 - Unilateral inguinal hernia, without obstruction or gangrene, not specified as recurrent Patient Disposition: Home, Self-Care Instructions: Inguinal Hernia (ED) Additional Instructions: Call surgery clinic for follow up. Prescriptions: New oxycodone 5 mg tablet 5 mg PO Q8H PRN (Reason: pain) Qty: 14 0RF Rx Instructions: Partial Fill upon patient request. prednisone 20 mg tablet 20 mg PO DAILY 7 Days Qty: 7 0RF No Action carvedilol 6.25 mg tablet 6.25 mg PO BID 90 Days Qty: 180 1RF Rx Instructions: must administer with a meal/food furosemide 20 mg tablet 20 mg PO DAILY 90 Days Qty: 90 1RF (DME) blood pressure monitor Kit See Rx Instructions .Route Qty: 1 0RF Rx Instructions: As directed sacubitril-valsartan 24-26 mg tablet 1 tab PO BID lidocaine 5 % adhesive patch,medicated 1 patch topical DAILY PRN (Reason: pain) oxycodone 5 mg tablet 5 mg PO Q6H PRN (Reason: pain (scale score 7-10)) Qty: 15 0RF Rx Instructions: Partial Fill upon patient request. Stand Alone Forms: Work/School Release Print Language: Belizean
[2025-02-14] MEDS: oxyCODONE HCl Immed Release 5 MG TABLET PO (08:06)
--- NOTE | 2025-02-14 08:16 | PC.NURSE ---
Patient presents to ED c/o right inguinal hernia pain rated 10/10 Patient needing surgery clearance to have repaired 02/18 IV 20G RAC Blood collected / sent Patient hypertensive 172/95, all other VSS and up to date Provider in to see patient Plan of care on going Patient awaiting CT scans
[2025-02-14 08:23] LABS: MANUAL DIFF FLAG NO
[2025-02-14 08:26] LABS: Hematocrit 54.9 % (42.0-52.0); Hemoglobin 18.4 g/dl (14.0-18.0); Imm Gran Abs Auto 0.02 X10*3/uL (0.00-0.03); Imm Gran Pct Auto 0.2 % (0.0-0.4); Lymphocytes Absolute Auto 1.6 X10*3/uL (1.2-4.9); Mean Corpuscular HGB Conc 33.5 g/dl (31.0-36.0); Mean Corpuscular Hemoglobin 29.4 pg (27.0-33.0); Mean Corpuscular Volume 87.7 fL (80.0-98.0); NRBC Abs Auto 0.000 X10*3/uL (0.0-0.012); NRBC Pct Auto 0.0 /100WBC (0.0-0.2); Platelet Count 235 X10*3/uL (160-400); Red Blood Count 6.26 X10*6/uL (4.60-5.80); White Blood Count 8.5 X10*3/uL (4.8-10.8)
[2025-02-14 08:38] LABS: Alanine Aminotransferase 27 U/L (0-40); Albumin Level 4.7 g/dL (3.5-5.0); Alkaline Phosphatase 58 U/L (39-117); Anion Gap 14 (12-20); Aspartate Amino Transferase 29 U/L (5-37); Blood Urea Nitrogen 22 mg/dL (9-16); Calcium 9.5 mg/dL (8.4-10.2); Carbon Dioxide 28 mmol/L (22-29); Chloride 105 mmol/L (96-108); Creatinine Clr Calc Pharmacy 52.0; Estimated Glomerular Filt Rate 56; Potassium 4.3 mmol/L (3.3-5.1); Sodium 143 mmol/L (135-145); Total Protein 7.6 g/dL (6.5-8.0)
[2025-02-14 08:58] VITALS: BP 157/109; PULSE 69; RESP 15; TEMP 36.4; O2SAT 98
[2025-02-14] MEDS: iohexoL 350 MG/ML 100 ML INFUS..BTL IV (10:34)
[2025-02-14 10:57] VITALS: BP 157/109; PULSE 69; RESP 15; TEMP 36.4; O2SAT 98
[2025-02-14 13:18] VITALS: BP 157/109; PULSE 69; RESP 15; TEMP 36.4; O2SAT 98
== END 2025-02-14 13:18 | disposition home or self-care (01) ==
PROVIDERS: Emergency Provider Student in an Organized Health Care Education/Training Program; PCP Internal Medicine
DX: K40.90 Unilateral inguinal hernia, without obstruction or gangrene, not specified as recurrent (principal); R51.9 Headache, unspecified; R30.0 Dysuria; R10.9 Unspecified abdominal pain
CPT/HCPCS: 36415; 74177; 80053; 85025; 99284; 99285; Q9967

== ENCOUNTER → 2025-02-14 08:02 | Outpatient (BNV) | payer OTHER, SELFPAY | PROVIDERS: Emergency Provider Student in an Organized Health Care Education/Training Program; PCP Internal Medicine; Visit Provider Radiology Diagnostic Radiology | DX: K42.9 Umbilical hernia without obstruction or gangrene (principal); K44.9 Diaphragmatic hernia without obstruction or gangrene | CPT/HCPCS: 74177 ==

== ENCOUNTER 2025-02-16 14:04 | Outpatient (AMB) | payer OTHER, SELFPAY ==
--- NOTE | 2025-02-16 14:20 | A.OFFVIS_ITS ---
Vital Signs 02/16/25 14:25 Height 5 ft 7 in Weight 170 lb BMI 26.6 BP 148/68 H Blood Pressure Location Rt brachial Position Sitting Pulse 78 Pulse Source Pulse Oximeter Pulse Oximetry (%) 98 Oxygen Delivery Method Room Air Intake Visit Reasons: IBD? Intake Note: Est pt for consult per R/O IBD. Recent ED admission. [place] done 02/04 w/ Dr. Gold. CC; Pt denies any current GI sx or concerns. Pt states that he only experiences mild constipation at most. 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 Patient was admitted about a week ago for shortness of breath and is found to be in heart failure. Has appointment with advertising account representative on August 31. Message sent to regulatory compliance officer to add clearance to his appointment. Denies any issues with anesthesia in the past.? Denies any history of sleep apnea.? No history infectious diseases in the past or present.? Not on any anticoagulation therapy.? No family or personal history of colon cancer or polyps.? Patient denies melena, hematochezia, unintentional weight loss or ribbon like stools.? Discussed at length the pre- procedure,? prep, diet & medications as well as what to expect prior, during and after the procedure.?? Stressed the importance of good bowel prep.? Recommended the use of Vaseline or Calmoseptine OTC & baby wipes with bowel movements to promote comfort.? ?Patient verbalizes understanding and agrees to plan of care.? He was given the opportunity to ask questions and all questions answered.? We will see him after the procedure.? New polyethylene glycol 3350 (Miralax) As directed by gastroenterology department at [facility] 238 grams PO ONCE 238 grams 0RF Z12.11 bisacodyl (Dulcolax (bisacodyl)) take 4 tabs at noon the day before your colonoscopy 20 mg (4 x 5 mg) PO ONCE 4 tabs 0RF 1 day Z12.11 COLONOSCOPY Findings: Mucosa: Normal to cecum. Protruding lesions: * 1 sessile polyp of size 2 mm in transverse colon. Cold snare polypectomy was performed. The polyp was completely removed and retrieved. * Medium internal hemorrhoids without stigmata of recent bleeding. Excavated lesions: * Moderate to severe diverticulosis of whole colon L>R. Impression: 1. Normal colon mucosa 2. Total of 1 polyp removed 3. Diverticulosis 4. Internal hemorrhoids Recommendations: - Follow path results. - Repeat colonoscopy in 7-10 years if polypis an adenoma. PATHOLOGY RESULTS Diagnosis Colon, transverse, polypectomy: Colonic mucosa with mild surface hyperplastic changes; multiple additional levels examined ED VISIT 02/14/2025 MDM Narrative: This is a 69-year-old male history of inguinal hernia presented hospital today for right groin pain. The patient stated this has been persistence pain. He was diagnosed with a inguinal hernia. However the pain persist. He is unable to get surgery soon. Therefore he presents to the ER for evaluation. Obtain basic abdominal lab work for the patient does time. CT abdomen and pelvis will be obtained to assess for any signs of incarcerated hernia. We will shoot this with oral contrast at this time. Assess for any other cause of his right continuous groin pain. It was noted that in previous ultrasound the patient has varicocele in his right scrotum. CTA abdomen and pelvis did not show any signs of incarcerated hernia. Report was given to the patient. CBC and chemistries unremarkable. Discussed case with Dr Love. He reviewed imaging. Does not think hernia is incarcerated. Patient also has signs of possible inflammatory bowel disease at the ileum. We will plan to start patient on a course of prednisone. At this time we will plan to discharge patient with a short course of oxycodone, prednisone and work excuse note with modification of activities. Encouraged to call the surgical office for close follow up. Patient agrees and understands this plan all questions were addressed. automobile insurance claim examiner was used for this encounter. TODAY'S VISIT Patient is here today for follow-up. Patient is here after going through colonoscopy on the of this month. Patient had 1 polyp if in transverse colon, hyperplastic polyp. Moderate diverticulosis in both left and right colon. Patient has been seen in the ER day before procedure for right lower quadrant pain and then 10 days after the procedure for the same. CT scan done both times and did reveal mild possible inflammation in the terminal ileum suggesting inflammatory bowel disease. Patient also has seen General surgery for possible right inguinal hernia repair. Due to unsure of diagnosis patient's procedure was cancel. He was due to go in few days. He is currently on prednisone therapy for 7 days. Patient reports that he is moving his bowels daily. Not sure if he is emptying his bowels completely. He does reports to be feeling gassy and bloated. Patient denies any nausea or vomiting. Otherwise labs were unremarkable, no leukocytosis. Pain in the right lower quadrant significant. Pain is there all the time and worse if he is standing for long period of time or caring anything. Patient denies any melena, hematochezia, unintentional weight loss or ribbon like stools. [facility] Medical History Inguinal hernia bilateral, non-recurrent Low back pain Chronic combined systolic and diastolic CHF (congestive heart failure) Hypertension Lumbar degenerative disc disease Compression fracture of L3 vertebra Surgical History Hx of surgical procedure (12/30/24) History of dental surgery Hx of colonoscopy Family History Mother No problems noted. Father No problems noted. Social History Household Members: Spouse Housing: House Are you a primary home care manager to a significant other at home: No Do you presently have visiting nurse or other home services: No Alcohol intake: current Alcohol intake frequency: holidays/special occasions only Alcohol type: hard liquor Patient Tobacco Use Status: Never used Tobacco e-Cigarette/Vaping Use: Never Used Second Hand Smoke Exposure: No Advance Directives Date on File: 06/21/24 service: No Current occupational status: unemployed Cognitive needs: No Hearing needs: No Vision needs: Yes (glasses) Review of Systems Const Denies weight gain and Denies weight loss ENT Reports no additional complaints, Denies dysphagia and Denies odynophagia Card Reports no additional complaints Resp Reports no additional complaints GI Reports abdominal pain (RLQ), Denies belching, Denies melena, Denies bloating, Denies change in bowel habits, Denies dysphagia, Denies excessive flatus, Denies dyspepsia, Denies heartburn, Denies diarrhea, Denies loose stools, Denies nausea, Denies odynophagia and Denies vomiting Reports no additional complaints Musc Reports no additional complaints Neuro Reports no additional complaints Psych Reports no additional complaints Endo Reports no additional complaints Physical Exam Vital Signs: Last Vital Signs Pulse 78 02/16/25 14:25 BP 148/68 H 02/16/25 14:25 Pulse Ox 98 02/16/25 14:25 Oxygen Delivery Method Room Air 02/16/25 14:25 BMI result Body Mass Index 26.6 Const General: cooperative and no acute distress Nutritional Appearance: well nourished Orientation/consciousness: patient oriented x3 Limitations: no limitations HEENT Head: Yes normocephalic and Yes atraumatic Ears: hearing grossly normal bilaterally Resp Effort & Inspection: normal respiratory effort, no audible wheezes, no cough and no respiratory distress Cardio Jugular venous distension: no JVD GI Inspection: Yes normal to inspection Palpation (GI): Tenderness to palpation present (GI) in the RLQ; Dubose's sign negative Auscultation: normal bowel sounds Skin Other: Warm, dry, no rash Neuro General: patient oriented x3 Extrem General: Yes no clubbing, cyanosis or edema Results Reviewed Results Reviewed: CT OF ABDOMEN AND PELVIS 02/14/2025 IMPRESSION: Concerning inflammatory bowel disease without intestinal obstruction. Small volume of fluid, right inguinal canal. Trace of pericholecystic fluid without gallbladder distention or gross cholelithiasis. Diverticular disease. Hiatal hernia. Pseudoarthrosis at L2-3 and old/chronic compression deformity at L3. Small fat-containing umbilical hernia. Assessment & Plan Assessment & Plan (1) Abdominal pain: Code(s): R10.9 - Unspecified abdominal pain Category: Medical Qualifiers: Abdominal location: right lower quadrant Qualified Code(s): R10.31 - Right lower quadrant pain (2) Inguinal hernia, right: Code(s): K40.90 - Unilateral inguinal hernia, without obstruction or gangrene, not specified as recurrent Category: Medical (3) RLQ abdominal pain: Code(s): R10.31 - Right lower quadrant pain (4) Ileitis: Code(s): K52.9 - Noninfective gastroenteritis and colitis, unspecified Plan Will rule out IBD. Check fecal calprotectin and CRP. Will send patient for CT enterography for more detailed report. Patient will start taking MiraLax daily. Follow-up in 1 month. Patient was encouraged to call us or go to ED if the pain will get worse. Will call patient with results. Patient is agreeable to current plan of care and verbalizes understanding of instructions. He was given the opportunity to ask questions and all questions answered. Thank you for allowing me to participate in his care Orders: Orders Blood Urea Nitrogen Today R10.11 - Right upper quadrant pain C Reactive Protein Today K58.9 - Irritable bowel syndrome, unspecified Calprotectin, Fecal Today R15.9 - Full incontinence of feces CT enterography Today R19.5 - Other fecal abnormalities Medications: New polyethylene glycol 3350 (Miralax) 17 grams PO DAILY 510 grams 2RF Coding Level of Care Code Est Pt Level 4 (23995) Diagnoses Right lower quadrant abdominal pain R10.31 Abdominal location: right lower quadrant Inguinal hernia, right K40.90 RLQ abdominal pain R10.31 Ileitis K52.9
[2025-02-16 14:25] VITALS: BP 148/68; PULSE 78; O2SAT 98; BMI 26.6
--- OUTSIDE RECORDS SUMMARY | 2025-02-16 18:52 | XMS_ITS ---
Author Organization Unknown ENCOUNTERS Encounter Performer Location Date Diagnosis Diagnosis Status Emergency [facility] [address] [place] [address] [id number] GEOVANNA Pre Admit Generic ED Physician [facility] [address] [place] [address] [id number] Outpatient [facility] [address] [place] [address] [id number] GEOVANNA Emergency [facility] [address] [place] [address] [id number] GEOVANNA Pre Admit Generic ED Physician [facility] [address] [place] [address] [id number] Outpatient [facility] [address] [place] [address] [id number] GEOVANNA Emergency [facility] [address] [place] [address] [id number] GEOVANNA Pre Admit [facility] [address] [place] [address] [id number] Emergency [facility] [address] [place] [address] [id number] GEOVANNA Pre Admit Generic ED Physician [facility] [address] [place] [address] [id number] Inpatient [facility] [address] [place] [address] [id number] GEOVANNA Emergency [facility] [address] [place] [address] [id number] AIP Pre Admit Generic ED Physician [facility] [address] [place] [address] [id number] *Note: Encounters from your own facility or health system may be excluded. Allergies, Adverse Reactions, Alerts Allergen Type Severity Identification Date Medications Name Date Quantity Days Supplied GPI Number
== END 2025-02-16 14:55 | disposition home or self-care (01) ==
PROVIDERS: PCP Internal Medicine; Visit Provider Nurse Practitioner Family
DX: R10.31 Right lower quadrant pain (principal); K40.90 Unilateral inguinal hernia, without obstruction or gangrene, not specified as recurrent; K52.9 Noninfective gastroenteritis and colitis, unspecified
CPT/HCPCS: 99214

== ENCOUNTER 2025-02-16 14:04 | Outpatient (REF) | payer OTHER, SELFPAY ==
[2025-02-16 16:49] LABS: Blood Urea Nitrogen 27 mg/dL (9-16)
== END 2025-02-16 14:05 | disposition home or self-care (01) ==
LOC: HO.LAB 14:04
PROVIDERS: PCP Internal Medicine; Visit Provider Nurse Practitioner Family
DX: K40.90 Unilateral inguinal hernia, without obstruction or gangrene, not specified as recurrent (principal); K52.9 Noninfective gastroenteritis and colitis, unspecified; R10.31 Right lower quadrant pain
CPT/HCPCS: 36415; 84520; 86140

== ENCOUNTER 2025-02-16 16:13 | Outpatient (REF) | payer OTHER, SELFPAY | END 2025-02-16 16:14 | disposition home or self-care (01) | LOC: HO.HKASLDS 16:13 | PROVIDERS: PCP Internal Medicine; Visit Provider Nurse Practitioner Family | DX: R15.9 Full incontinence of feces (principal) | CPT/HCPCS: 83993 ==

== ENCOUNTER 2025-02-17 06:58 | Outpatient (REF) | payer OTHER, MEDICARE, SELFPAY ==
--- NOTE | ~2025-02-17 | CT_ITS ---
EXAMINATION: CT ABDOMEN PELVIS ENTEROGRAPHY WITHOUT IV CONTRAST HISTORY: R19.5 - Other fecal abnormalities COMPARISON: Comparison is made with prior examinations dated 02/14/2025 and 02/03/2025. TECHNIQUE: CT enterography of the abdomen and pelvis was performed following administration of 85 mL Omnipaque 350 using standard departmental protocol. Coronal and sagittal reformatted images were generated and reviewed. The patient received low-density oral contrast material for CT enterography. This CT exam was performed with one or more of the following dose reduction techniques: automated exposure control, adjustment of the mA and/or kV according to patient size, use of iterative reconstruction technique. DLP: 426 mGy-cm FINDINGS: LOWER CHEST: The visualized lung bases are clear. There is no pleural effusion. CARDIOVASCULATURE: The heart is normal in size. There is no pericardial effusion. LIVER: The liver is normal in size and contour. There is a focal hypodensity within the liver adjacent to the fissure for the ligamentum teres which may represent focal fatty infiltration. The hepatic and portal veins are patent. GALLBLADDER / BILE DUCTS: The gallbladder is unremarkable. There is no intra or extrahepatic biliary ductal dilatation. SPLEEN: The spleen is normal in size. No focal splenic lesion is identified. PANCREAS: There is a 7 mm hypodensity in the pancreatic body. The pancreatic duct is normal in caliber. ADRENAL GLANDS: Within normal limits. KIDNEYS/RETROPERITONEUM: No renal calculi are identified. There is no hydronephrosis. No renal masses are identified. LYMPH NODES: No abdominal or pelvic lymphadenopathy. VASCULATURE: The abdominal aorta demonstrates atherosclerotic calcification, but is normal in caliber. MESENTERY/PERITONEUM: No free fluid. No masses. There is no free intraperitoneal gas. STOMACH: There is a small hiatal hernia. SMALL BOWEL: The small bowel is normal in caliber. There is no mucosal hyperenhancement or wall thickening. There is a right inguinal hernia which contains a loop of small bowel on the current study which was not present on the prior two examinations. There is no evidence of small bowel obstruction. Feculent material in small bowel loops, including in the right inguinal hernia may indicate stasis. COLON: There is a moderate amount of stool throughout the colon. There is diverticulosis of the descending and sigmoid colon, without evidence of diverticulitis. APPENDIX: Normal. URINARY BLADDER/PELVIC ORGANS: The urinary bladder is unremarkable. The prostate is normal in size. BONES / SOFT TISSUES: There is a moderate compression deformity of L3, as seen previously. There is degenerative disc disease of the spine. CT/CT enterography IMPRESSION: 1. Right inguinal hernia containing a loop of small bowel. No evidence of small bowel obstruction. Feculent material in small bowel loops including the small bowel loop in the hernia may indicate stasis. 2. Moderate amount of stool throughout the colon. 3. Small hiatal hernia. 4. 7 mm hypodensity in the pancreatic body which could represent IPMN. MRI of the pancreas is recommended. Electronically signed by: Bud Acuña MD 02/17/2025 09:39 AM EST
--- OUTSIDE RECORDS SUMMARY | 2025-02-17 07:01 | XMS_ITS ---
Author Organization Unknown ENCOUNTERS Encounter Performer Location Date Diagnosis Diagnosis Status Emergency [facility] [address] [place] [address] [id number] GEOVANNA Pre Admit Generic ED Physician [facility] [address] [place] [address] [id number] Outpatient [facility] [address] [place] [address] [id number] GEOVANNA Emergency [facility] [address] [place] [address] [id number] GEOVANNA Pre Admit Generic ED Physician [facility] [address] [place] [address] [id number] Outpatient [facility] [address] [place] [address] [id number] GEOVANNA Emergency [facility] [address] [place] [address] [id number] GEOVANNA Pre Admit [facility] [address] [place] [address] [id number] Emergency [facility] [address] [place] [address] [id number] GEOVANNA Pre Admit Generic ED Physician [facility] [address] [place] [address] [id number] Inpatient [facility] [address] [place] [address] [id number] GEOVANNA Emergency [facility] [address] [place] [address] [id number] AIP Pre Admit Generic ED Physician [facility] [address] [place] [address] [id number] *Note: Encounters from your own facility or health system may be excluded. Allergies, Adverse Reactions, Alerts Allergen Type Severity Identification Date Medications Name Date Quantity Days Supplied GPI Number
[2025-02-17] MEDS: iohexoL 350 MG/ML 100 ML INFUS..BTL IV (09:20)
[2025-02-17] MEDS: Sorbitol/Mannit/Xanth Imaging 500 ML LIQUID 1500 ML PO (09:55)
== END 2025-02-17 06:59 | disposition home or self-care (01) ==
LOC: HO.CT 06:58
PROVIDERS: PCP Internal Medicine; Visit Provider Nurse Practitioner Family
DX: R19.5 Other fecal abnormalities (principal); K52.9 Noninfective gastroenteritis and colitis, unspecified
CPT/HCPCS: 74177; Q9967

== ENCOUNTER → 2025-02-17 07:01 | Outpatient (BNV) | payer OTHER, MEDICARE, SELFPAY | PROVIDERS: PCP Internal Medicine; Visit Provider Radiology Diagnostic Radiology | DX: K40.91 Unilateral inguinal hernia, without obstruction or gangrene, recurrent (principal); K44.9 Diaphragmatic hernia without obstruction or gangrene; K86.89 Other specified diseases of pancreas | CPT/HCPCS: 74177 ==

== ENCOUNTER 2025-02-22 12:48 | Outpatient (AMB) | payer OTHER, SELFPAY ==
--- NOTE | 2025-02-22 13:01 | A.OFFVIS_ITS ---
Vital Signs 02/22/25 13:18 Height 5 ft 7 in Weight 171 lb 15.369 oz BMI 26.9 BP 130/82 Blood Pressure Location Lt brachial Position Sitting Intake Visit Reasons: Lap rt bilateral inguinal hernia & umb. Intake Note: Patient is seen in office to discuss bilateral hernia surgery. Pt c/o: Allergies No Known Allergies Allergy (Verified 02/14/25 06:09) HPI Comments Details: 69-year-old male patient previously evaluated by Dr. Romero for bilateral inguinal and umbilical hernias. He initially presented to the emergency department with complaints of pain in the right groin. Workup with CT abdomen and pelvis revealed bilateral inguinal hernias right greater than left containing bowel as well as a small fat containing umbilical hernia. He was previously scheduled by Dr. Romero 06/13/2019 05/20/2024 however needed to be canceled due to insurance issues. He returns today to be evaluated for repair of the bilateral inguinal hernias and umbilical hernia. He does have pain especially in the right groin still but denies nausea, vomiting, fever or chills. The hernia is definitely increase with standing. 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 [facility] Medical History Inguinal hernia bilateral, non-recurrent Low back pain Chronic combined systolic and diastolic CHF (congestive heart failure) Hypertension Lumbar degenerative disc disease Compression fracture of L3 vertebra Surgical History Hx of surgical procedure (12/30/24) History of dental surgery Hx of colonoscopy Family History Mother No problems noted. Father No problems noted. Social History Household Members: Spouse Housing: House Are you a primary career portals teacher to a significant other at home: No Do you presently have visiting nurse or other home services: No Alcohol intake: current Alcohol intake frequency: holidays/special occasions only Alcohol type: hard liquor Patient Tobacco Use Status: Never used Tobacco e-Cigarette/Vaping Use: Never Used Second Hand Smoke Exposure: No Advance Directives Date on File: 06/21/24 service: No Current occupational status: unemployed Cognitive needs: No Hearing needs: No Vision needs: Yes (glasses) Review of Systems Const All systems reviewed & are unremarkable except as noted in HPI and below Physical Exam Const General: cooperative and no acute distress Nutritional Appearance: well nourished Orientation/consciousness: patient oriented x3 Limitations: no limitations HEENT Head: Yes normocephalic and Yes atraumatic Ears: hearing grossly normal bilaterally Resp Effort & Inspection: normal respiratory effort, no audible wheezes, no cough and no respiratory distress Cardio Jugular venous distension: no JVD GI Other: Soft, nondistended, easily identified bilateral inguinal hernias and small umbilical hernia. Hernias increase in size with Valsalva maneuvers but then reduce with light pressure. No redness is noted in the skin. Inspection: Yes normal to inspection Skin Other: Warm, dry, no rash Neuro General: patient oriented x3 Extrem General: Yes no clubbing, cyanosis or edema Assessment & Plan Assessment & Plan (1) Umbilical hernia: Code(s): K42.9 - Umbilical hernia without obstruction or gangrene Category: Medical Qualifiers: Obstruction and gangrene presence: without obstruction or gangrene Qualified Code(s): K42.9 - Umbilical hernia without obstruction or gangrene (2) Inguinal hernia bilateral, non-recurrent: Code(s): K40.20 - Bilateral inguinal hernia, without obstruction or gangrene, not specified as recurrent Category: Medical Qualifiers: Obstruction and gangrene presence: without obstruction or gangrene Recurrence: non-recurrent Qualified Code(s): K40.20 - Bilateral inguinal hernia, without obstruction or gangrene, not specified as recurrent Plan 69-year-old male patient presenting with symptomatic bilateral inguinal hernias and a small umbilical hernia. He presents today for repair of the bilateral inguinal hernias and umbilical hernia with mesh. After a discussion of the procedure, risks, and alternatives, he consents to the repair of bilateral inguinal hernias and umbilical hernia with mesh as an open procedure. This will be scheduled as a short-stay surgery. Orders: Referrals General Surgery Procedure Notification K40.20 - Bilateral inguinal hernia, without obstruction or gangrene, not specified as recurrent, K42.9 - Umbilical hernia without obstruction or gangrene Coding Level of Care Code Est Pt Level 4 (43830) Diagnoses Umbilical hernia without obstruction and without gangrene K42.9 Obstruction and gangrene presence: without obstruction or gangrene Non-recurrent bilateral inguinal hernia without obstruction or gangrene K40.20 Obstruction and gangrene presence: without obstruction or gangrene Recurrence: non-recurrent
[2025-02-22 13:18] VITALS: BP 130/82; BMI 26.9
== END 2025-02-22 13:25 | disposition home or self-care (01) ==
LOC: HO.HGS 12:49
PROVIDERS: PCP Internal Medicine; Visit Provider Surgery
DX: K42.9 Umbilical hernia without obstruction or gangrene (principal); K40.20 Bilateral inguinal hernia, without obstruction or gangrene, not specified as recurrent
CPT/HCPCS: 99214

== ENCOUNTER 2025-02-23 09:23 | Day surgery (SDC) | payer OTHER, SELFPAY ==
--- NOTE | 2025-02-23 07:35 | HO.ANESPROP2 ---
Documented by User: Divya Gannon NP 02/23/25 07:44 HPI - Anesthesia Eval Consult details Narrative: 69 yr old male for bilateral hernia repair, inguinal, reducible and repair umbilical hernia s/p lipoma excision 12/31/24 with GA, LMA 5 Follows [facility], in work load: On 02/14/25 @ 18:14 Kerri Perrin Wrote To Manuel aSpp He saw Dr. Dietz on 12/06/2024. That note has clearance for a lipoma removal. It indicates patient is an intermediate cardiac risk, avoid excess IV fluids that could precipitate congestive heart failure. Continue usual cardiac medications without interruption. He now needs to have hernia repair surgery. His last echocardiogram had shown EF 32%. His nuclear stress test showed no clear evidence of infarct or ischemia. *He can proceed with the hernia repair surgery with intermediate cardiac risk with recommendations as stated above . Notes from prior to 12/2024 procedure as follows: -Follows [facility]iology for Chronic combined systolic and diastolic CHF, HTN. At 12/06/24 office visit, deemed intermed risk for elective surgery. -In regards to CHF: In the initial echocardiogram, LVEF was 28%. Repeat study with 32%. -Myocardial perfusion imaging study without any clear ischemia or infarction. -Cardiomyopathy could be all related to hypertension. Meds to be optimized. *Case reviewed with LM prior to Dec 2024 GA case. Pt seen in [facility] ED 02/14/25, started on prednisone, ?inflammatory bowel disease, see CT finding below. [facility] Active Problems Active Problems: All Active Problems (Updated 02/22/25 @ 13:16 by Ed Guzman MD) Abdominal pain (Acute) Inguinal hernia bilateral, non-recurrent (Acute) Umbilical hernia (Acute) Right shoulder pain (Acute) Epidermal inclusion cyst (Acute) Groin lump (Acute) Sebaceous cyst (Acute) Lipoma of right shoulder (Acute) Renal cyst (Acute) Pleural effusion (Acute) Preop cardiovascular exam (Acute) Hospital discharge follow-up (Acute) Cardiomyopathy (Acute) Snoring (Acute) Elevated serum creatinine (Acute) Acute combined systolic and diastolic congestive heart failure (Acute) Hypertensive emergency (Acute) New onset of congestive heart failure (Acute) Sacroiliac joint pain (Acute) Left knee pain (Acute) Lumbosacral spondylosis (Acute) Abnormal EKG (Acute) Nocturia (Acute) Cyst of right clavicle (Acute) Lumbar pain (Acute) Syphilis (Acute) Erectile dysfunction (Acute) Physical exam (Acute) Bleeding hemorrhoids (Acute) Rectal bleeding (Acute) Hip pain (Acute) Shoulder pain (Acute) Chronic combined systolic and diastolic CHF (congestive heart failure) (Acute) Hypertension (Acute) Lumbar degenerative disc disease (Acute) Past Medical History Medical History Inguinal hernia bilateral, non-recurrent Low back pain Chronic combined systolic and diastolic CHF (congestive heart failure) Hypertension Lumbar degenerative disc disease Compression fracture of L3 vertebra Family History Family History Mother No problems noted. Father No problems noted. Family history of problems with anesthesia: No Surgical History Surgical History Hx of surgical procedure (12/30/24) History of dental surgery Hx of colonoscopy History of Problems with Anesthesia: No Social History Social History Household Members: Spouse Housing: House Are you a primary student career development specialist to a significant other at home: No Do you presently have visiting nurse or other home services: No Alcohol intake: current Alcohol intake frequency: holidays/special occasions only Alcohol type: hard liquor Patient Tobacco Use Status: Never used Tobacco e-Cigarette/Vaping Use: Never Used Second Hand Smoke Exposure: No Use of substances other than those prescribed or required for medical reasons: No Advance Directives: No Advance Directives Information Provided: Yes Advance Directives Date on File: 06/21/24 service: No Current occupational status: unemployed Cognitive needs: No Hearing needs: No Vision needs: Yes (glasses) Meds Allergies Allergy/AdvReac Type Severity Reaction Status Date / Time No Known Allergies Allergy Verified 02/22/25 13:18 Home Medications ?Medication ?Instructions ?Recorded ?Confirmed ?Last Taken ?Type lidocaine 5 % topical patch 1 patch topical DAILY PRN pain 12/28/24 02/08/25 Unknown History sacubitril 49 mg-valsartan 51 mg 1 tab PO BID 02/16/25 Unknown History tablet Exam Pertinent Lab Results Pertinent Lab Results: Laboratory Tests 02/14/25 02/16/25 08:13 15:20 WBC 8.5 RBC 6.26 H Hgb 18.4 H Hct 54.9 H Plt Count 235 Sodium 143 Potassium 4.3 BUN 27 H Creatinine 1.27 Narrative Narrative: Limited ECHO 10/2024 Conclusions: - The left ventricular systolic function is moderate to severely decreased. The calculated ejection fraction is 32% by biplane method. Findings Procedure Information Contrast agent, definity, is being given per protocol without apparent complications. Left Ventricle Normal left ventricular cavity size. The left ventricular systolic function is moderate to severely decreased. The calculated ejection fraction is 32% by biplane method. There is severe global hypokinesis. Prominent trabeculae at the apex. Cardiolite Stress Test 11/2024 IMPRESSION: 1. Myocardial perfusion imaging study shows no clear evidence of ischemia or infarction. Fixed inferior defect could be from diaphragmatic attenuation artifact. 2. Gated LVEF is 38% during stress and 34% during rest. 3. Transient ischemic dilatation not present. Abdominal/pelvic CT 01/2025 IMPRESSION: Concerning inflammatory bowel disease without intestinal obstruction. Small volume of fluid, right inguinal canal. Trace of pericholecystic fluid without gallbladder distention or gross cholelithiasis. Diverticular disease. Hiatal hernia. Pseudoarthrosis at L2-3 and old/chronic compression deformity at L3. Small fat-containing umbilical hernia. Assessment and Plan Assessment Anesthesia Assessment: Chart Reviewed Final Anesthetic Review Family History of Problems with Anesthesia: No History of Problems with Anesthesia: No Documented by User: Sheela Chairez MD 02/23/25 10:50 PMFSH Past Medical History Medical History Inguinal hernia bilateral, non-recurrent Low back pain Chronic combined systolic and diastolic CHF (congestive heart failure) Hypertension Lumbar degenerative disc disease Compression fracture of L3 vertebra Family History Family History Mother No problems noted. Father No problems noted. Surgical History Surgical History Hx of surgical procedure (12/30/24) History of dental surgery Hx of colonoscopy Social History Social History Household Members: Spouse Housing: House Are you a primary student career development specialist to a significant other at home: No Do you presently have visiting nurse or other home services: No Alcohol intake: current Alcohol intake frequency: holidays/special occasions only Alcohol type: hard liquor Patient Tobacco Use Status: Never used Tobacco e-Cigarette/Vaping Use: Never Used Second Hand Smoke Exposure: No Use of substances other than those prescribed or required for medical reasons: No Advance Directives: No Advance Directives Information Provided: Yes Advance Directives Date on File: 06/21/24 service: No Current occupational status: unemployed Cognitive needs: No Hearing needs: No Vision needs: Yes (glasses) Meds Allergies Allergy/AdvReac Type Severity Reaction Status Date / Time No Known Allergies Allergy Verified 02/22/25 13:18 Home Medications ?Medication ?Instructions ?Recorded ?Confirmed ?Last Taken ?Type lidocaine 5 % topical patch 1 patch topical DAILY PRN pain 12/28/24 02/08/25 Unknown History sacubitril 49 mg-valsartan 51 mg 1 tab PO BID 02/16/25 Unknown History tablet Exam Airway Mallampati Class: II TM Dist: >3cm Neck ROM: Limited Heart: rrr Lungs: cta Assessment and Plan Assessment Anesthesia Assessment: Anesthesia Plan Discussed Final Anesthetic Review NPO: Yes ASA Class: III Final Preanesthetic Review: No Changes in Pt Med Stat, Meds/Allgs Chart Reviewed, Consent Obtained/Reviewed and Anes Risks/Benef Reviewed Patient Risk: High Procedure Risk: Intermediate Anesthetic Plan Anesthetic Plan: GA and Agree w/ Assess. and Plan Disposition: Standard PACU
[2025-02-23] MEDS: Lactated Ringers 1,000 ML 50 ML IVCONT (10:06)
[2025-02-23 10:07] VITALS: BP 139/80; PULSE 79; RESP 16; TEMP 36.4; O2SAT 96
--- NOTE | 2025-02-23 11:09 | MHC.SHP ---
Pre-Procedural Eval Section A - 24 Hr Update-Section A only Date of Service: 02/23/25 The patient is an INPATIENT: No Changes since office visit: Yes Patient answered all questions; No Cold of Flu in the past 2 weeks, No New Medical Problems and No Changes in Medication The patient has been examined within 24 hours of the surgical procedure. The History & Physical has been completed within 30 days and I have reviewed it.: Yes Section B - Complete if H&P > 30 days Chief Complaint: Bilateral inguinal hernia, Umbilical Hernia Repair Allergies: Allergies Allergy/AdvReac Type Severity Reaction Status Date / Time No Known Allergies Allergy Verified 02/22/25 13:18 Plan Diagnosis/Plan: Unchanged I have reviewed the history and physical and performed a pertinent physical examination on my patient. No changes have occurred unless specified. Time Spent With Patient Time: Total time managing care of this patient today ____ minutes.
--- NOTE | 2025-02-23 13:11 | P.OP_ITS ---
Operative Note Operative Note Date of Service: 02/23/25 Narrative: Preoperative diagnosis: Bilateral inguinal hernias, reducible, umbilical hernia, reducible Postoperative diagnosis: Same Procedure: Repair of bilateral inguinal hernias and umbilical hernia with mesh Surgeon: Ed Guzman MD Senior Benefits Analyst: Jerica Echeverria PA-C Anesthesia: General endotracheal Indications for procedure: 69-year-old male patient presenting with complaints of pain in the right groin presenting to the emergency department for further evaluation found to have bilateral inguinal hernias and umbilical hernia on CT scan. He presents today for repair of the bilateral inguinal hernias and u mbilical hernia. Operative findings: Small left inguinal hernia containing lipoma of the cord, larger right inguinal hernia with indirect sac. Small umbilical hernia containing preperitoneal fat. Specimen: Left lipoma of the cord, right inguinal hernia sac Estimated blood loss: 10 mL Complications: None Procedure details: Patient was brought to the OR and placed in a supine position. After administering general anesthesia the patient's abdomen was prepped with ChloraPrep and draped in a sterile fashion. A surgical time-out was called the consent confirmed. Patient received preoperative antibiotics and Venodyne boots were in place. Beginning on the left side local anesthesia was infiltrated over the left inguinal ligament. Incision was then made with a scalpel and carried out through subcutaneous tissue, past Niranjan's fascia and up to the external oblique aponeurosis. Additional local was infiltrated below the aponeurosis. The aponeurosis was then incised with a scalpel and widened with the Metzenbaum scissors. Spermatic cord was then dissected free from the inguinal canal and retracted using a Litchfield drain. The floor of the inguinal canal was found to be intact. Fibers of the cremaster muscle were and a small lipoma of the cord noted extending into the internal ring. No indirect sac could be identified. Attention was directed to the floor of the inguinal canal. Fibers of the internal oblique and transversalis aponeurosis were then incised between Allis clamps and the preperitoneal space entered. This was then widened using an open Ray-Shelton sponge. A large PHS mesh was then obtained. The circular underlay was deployed within the preperitoneal space in the overlay secured to the pubic tubercle, conjoined tendon, and shelving edge of the inguinal ligament using a 0 Polysorb suture. A slit was made in the mesh in the mesh wrapped around the spermatic cord at the internal ring. This was made tight enough to allow passage of the tip of the index finger. The remainder of the mesh was placed laterally below the external oblique aponeurosis. Wounds were irrigated with saline solution and suctioned dry. External oblique aponeurosis was then closed using a running 2-0 Polysorb suture. Attention was then directed to the right inguinal hernia. Local was infiltrated over the right inguinal ligament. Incision was then made with a scalpel and carried down through subcutaneous tissue, past Niranjan's fascia and up to the external oblique aponeurosis. Additional local was placed below the external oblique aponeurosis. This was then incised with a scalpel and widened with the Metzenbaum scissors. Spermatic cord was then dissected free from the inguinal canal and retracted using a Litchfield drain. The floor of the inguinal canal was found to be intact with no direct hernia. Fibers of the cremaster muscle were and a hernia sac identified. This was dissected down to the internal ring. The sac was opened and the contents reduced. The sac was then ligated using a 0 Polysorb suture at its base. The sac was then excised and sent to pathology. A large internal ring was identified. This was widened using a open Ray-Shelton sponge. A large PHS mesh was then obtained. The circular underlay was then deployed within the preperitoneal space through the internal ring. The overlay was then secured to the pubic tubercle, conjoined tendon and shelving edge of the inguinal ligament using the 0 Polysorb suture. A slit was made in the mesh in the mesh wrapped around the spermatic cord at the internal ring. This was then secured to the shelving edge using the 0 Polysorb suture. The internal ring was made tight enough to allow passage of the tip of the index finger. The remainder of the mesh was placed below the external oblique aponeurosis laterally. Wounds were then irrigated with saline solution and suctioned dry. External oblique aponeurosis was then closed using a running 2-0 Polysorb suture. Attention was then directed to the umbilical hernia. A curvilinear incision was made transversely below the umbilicus. This was carried out through subcutaneous tissue down to the hernia sac. This hernia sac was then dissected down to the fascia. The umbilical skin was then lifted off the fascia using electrocautery. Hernia sac was then dissected circumferentially and the contents reduced. A preperitoneal space was then dissected using sharp and blunt dissection. Hemostasis was assured using electrocautery. A 4.3 cm round Ventralex mesh was then obtained. This was deployed within the preperitoneal space. This was secured in 4 quadrants using a 1 Tycron suture. Fascia was then closed using [id number] 1 Tycron sutures. Prior to complete closure approximately 2 mL of Zenrelef was instilled below the fascia. The fascia was then completely closed. Wounds were irrigated with saline solution and suctioned dry. Umbilical skin was then reattached to the fascia using a 3-0 Polysorb suture. Dermis was reapproximated using interrupted 3-0 Polysorb sutures skin closed using a running subcuticular suture. Inguinal incisions were then closed simultaneously. Approximately 3 mL of Zenrelef was instilled below the external oblique aponeurosis on each side. Niranjan's fascia and dermis were closed using interrupted 3-0 Polysorb sutures in dermis reapproximated using interrupted 3-0 Polysorb sutures. Skin was then closed using running subcuticular 4-0 Polysorb sutures bilaterally. Sterile dressings consisting of Steri-Strips, 4 x 4 gauze and Tegaderm were then applied. The patient tolerated the procedure well. Sponge, instrument, and needle counts reported as correct. The patient was transferred to PACU in stable condition.
[2025-02-23 13:25] VITALS: BP 145/84; PULSE 75; RESP 12; TEMP 36.4; O2SAT 94
[2025-02-23 13:30] VITALS: BP 129/80; PULSE 70; RESP 14; O2SAT 97
[2025-02-23 13:35] VITALS: BP 138/85; PULSE 76; RESP 12; O2SAT 95
[2025-02-23 13:40] VITALS: BP 124/74; PULSE 70; RESP 14; O2SAT 92
[2025-02-23 13:53] VITALS: BP 114/79; PULSE 68; RESP 14; TEMP 36.1; O2SAT 94
== END 2025-02-23 14:09 | disposition home or self-care (01) ==
PROVIDERS: PCP Internal Medicine; Visit Provider Surgery
PROC: (CPT 49505; principal; 2025-02-23 12:50)
DX: K40.20 Bilateral inguinal hernia, without obstruction or gangrene, not specified as recurrent (principal); K42.9 Umbilical hernia without obstruction or gangrene; D17.6 Benign lipomatous neoplasm of spermatic cord; I11.0 Hypertensive heart disease with heart failure; I50.42 Chronic combined systolic (congestive) and diastolic (congestive) heart failure; M51.360 Other intervertebral disc degeneration, lumbar region with discogenic back pain only; Z98.890 Other specified postprocedural states; Z56.0 Unemployment, unspecified
CPT/HCPCS: 49505; 49591; 88302; C1781; J0131; J0668; J0690; J1100; J2003; J2405; J2704; J3010

== ENCOUNTER → 2025-02-23 09:23 | Outpatient (BNV) | payer OTHER, SELFPAY | PROVIDERS: PCP Internal Medicine; Visit Provider Surgery | DX: K40.20 Bilateral inguinal hernia, without obstruction or gangrene, not specified as recurrent (principal); K42.9 Umbilical hernia without obstruction or gangrene | CPT/HCPCS: 49505; 49591 ==

== ENCOUNTER 2025-03-01 13:07 | Outpatient (AMB) | payer OTHER, SELFPAY ==
--- NOTE | 2025-03-01 14:34 | AM.OFFVISNUR ---
Intake Visit Reasons: Remove dressing, wound check Allergies No Known Allergies Allergy (Verified 03/08/25 08:58) Nursing Note Pt reports to the office for assistance with removing dressing from hernia repair sites. He was afraid to do this himself. All three dressings removed without difficulty. Steri stips left in place - pt advised to leave them in place until they fall off on their own. Surgical incisons have small amount of bruising that is resolving and turning greenish yellow. Abdomen soft, non-tender, pt appetite is good and bowels are working well. He did request additional pain med and Dr. Guzman was advised of this after pt left. Script was sent. Pt will return to see MD next week for post op appt. Coding Level of Care Code Established Pt Est Pt Level 1 (32374) Patient Type Established Medical Decision Making Straight Forward Time Spent (min) 15 Comment dressing change, wound teaching
== END 2025-03-01 14:42 | disposition home or self-care (01) ==
LOC: HO.HGS 13:07
PROVIDERS: PCP Internal Medicine; Visit Provider Surgery
DX: Z98.890 Other specified postprocedural states (principal)
CPT/HCPCS: 99024

== ENCOUNTER → 2025-03-01 14:37 | Outpatient (REF) | payer OTHER, SELFPAY ==
--- NOTE | 2025-03-01 14:39 | CA_ITS ---
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 Study Quality: Adequate ECG Rhythm: Sinus Conclusions: - The left ventricular systolic function is moderately decreased. The calculated ejection fraction is 38% by biplane method. - No obvious valvular pathology seen on this study. - There is mild dilatation of the ascending aorta measuring 3.90 cm. Findings Left Ventricle Normal left ventricular cavity size. There is moderately increased left ventricular wall thickness. The left ventricular systolic function is moderately decreased. The calculated ejection fraction is 38% by biplane method. There is moderate global hypokinesis. Evidence suggests grade I (mild) diastolic dysfunction. Right Ventricle Normal right ventricular cavity size and systolic function. Atria Both atria are normal in size. Aortic Valve There is mild calcification of the aortic valve. There is no aortic valve stenosis. There is no aortic valve regurgitation. Mitral Valve The mitral valve appears normal. There is trace mitral valve regurgitation. There is no mitral valve stenosis. Pulmonic Valve The pulmonic valve is likely normal. Tricuspid Valve There is no tricuspid valve regurgitation. Tricuspid regurgitation envelope is inadequate for calculation of right ventricular systolic pressure. Great Vessels The aortic arch is normal in size. There is mild dilatation of the ascending aorta measuring 3.90 cm. Venous The inferior vena cava is normal in size and collapses greater than 50% with inspiration. Pericardium/Pleural There is no evidence of pericardial effusion. Prior Study Comparison Changes noted compared to prior study dated: 10/12/2024. LVEF slightly higher. Recommendations, Care & Conclusions No obvious valvular pathology seen on this study. Measurements 2D Linear Measurements IVSd: 1.38 0.6-0.9/0.6-1.0 cm LVIDd: 4.36 3.9-5.3/4.2-5.9 cm LVIDd Index: 2.31 2.4-3.2/2.2-3.1 cm/m2 LVIDs: 3.52 2.0-3.6 cm LVPWd: 1.65 0.7-1.1 cm LA Diam: 3.60 2.7-3.8/3.0-4.0 cm LAIDs Index: 1.90 1.5-2.3 cm/m2 LV Mass: 333.53 67-162/88-224 g LV Mass Index: 176.47 43-95/49-115 g/m2 LVOT Diam: 2.10 3.0+(-)1.3 cm 2D Systolic Function EF 4C: 40.80 >55% EF 2C: 38.60 >55% EF BiP: 38.40 >55% Mitral Valve MV Pk E: 0.54 MV PK A: 1.09 MV Decel Time: 205.00 E/A: 0.50 E'Lateral: 4.12 E'Medial: 3.07 E/E' Med: 17.50 E/E' Lat: 13.00 PHT: 60.00 MVA PHT: 3.67 Decel Denali: 2.61 Aortic Valve AoV Pk Harinder: 1.13 AoV Mn Harinder: 0.80 AoV VTI: 0.21 AoV Pk Grad: 5.00 Aov Mn Grad: 3.00 TEREZA Cont.VTI: 2.79 LVOT LVOT Pk Harinder: 0.88 LVOT Mn Harinder: 0.59 LVOT VTI: 0.17 LVOT Pk Grad: 3.00 LVOT Mn Grad: 2.00 LVOT Diam: 2.10 LVOT Area: 3.46 Diastolic Function MV Pk E: 0.54 MV Pk A: 1.09 E/A: 0.50 E'Medial: 3.07 E/E' Med: 17.50 E' Laterial: 4.12 E/E' Lat: 13.00 Right Ventricle TAPSE (mm): 22.10 TVS' Harinder: 10.20 Tricuspid Valve RA Press: 3.00 Great Vessels Aorta Sinus of Valsalva: 3.10 2.0-3.5 cm Ao Asc: 3.90 2.1-3.4 cm Ao Arch: 3.30 Pulmonary Veins Pulm Vein S/D 1.70 Pulmonary Valve PV Pk Harinder: 0.71 Peak PV Grad: 2.00 Updated in Other Vendor System with Status of Final Jero Dietz MD electronically signed on 03/03/2025 12:35:58 PM with status of Final
== END ==
LOC: HO.CARD 14:37
PROVIDERS: PCP Internal Medicine; Visit Provider Internal Medicine
DX: I50.42 Chronic combined systolic (congestive) and diastolic (congestive) heart failure (principal)
CPT/HCPCS: 93306

== ENCOUNTER → 2025-03-01 14:39 | Outpatient (BNV) | payer OTHER, SELFPAY | PROVIDERS: PCP Internal Medicine; Visit Provider Internal Medicine | DX: I77.810 Thoracic aortic ectasia (principal) | CPT/HCPCS: 93306 ==